=== PATIENT | female | born 2000 | race Caucasian/White ===

== ENCOUNTER 2018-04-03 17:19 | Outpatient (REF) | payer MEDICAID, SELFPAY ==
[2018-04-06 14:54] LABS: Chlamydia Result Negative; GC Result Negative; Specimen Description URINE
== END 2018-04-03 17:39 ==
LOC: LBN 17:19
PROVIDERS: PCP Pediatrics; Visit Provider Nurse Practitioner Family
DX: Z11.3 Encounter for screening for infections with a predominantly sexual mode of transmission (principal)
CPT/HCPCS: 87491; 87591

== ENCOUNTER 2018-11-26 07:03 | Emergency (ER) | payer MEDICAID, SELFPAY ==
[2018-11-26 07:14] VITALS: BP 129/74; PULSE 78; RESP 16; TEMP 36.7; O2SAT 97
--- NOTE | 2018-11-26 07:55 | W.ED.GENAD ---
Discharge Plan Disposition Patient Disposition: HOME Condition: Stable Discharge Details Chief Complaint: RashLesion Clinical Impression: Contact dermatitis Primary Care Provider: Inga Prince ED Provider: Richard Deras Home Meds and New Rx's Prescriptions: New prednisone 20 mg tablet 60 mg PO DAILY 5 Days Qty: 15 RF: 0 Continued levonorgestrel-ethinyl estrad [Jolessa] 0.15 mg-30 mcg tablets,dose pack,3 month 1 tab PO DAILY Qty: 91 RF: 6 Discharge Instructions Instructions: Dermatitis (ED) Additional Instructions: follow up with your primary care provider in 1-2 weeks and discuss if you should continue your control you can take benadryl as needed for itching, follow dosing instructions on packaging and be aware this could make you drowsy so do not drive or drink alcohol if you take this if you have severe abdominal pain, difficulty breathing or persistent vomit return to the emergency department Medical Decision Making 17 yo female comes in with rash that started 4 days ago. She states it started on innher thighs and is now in axilla and abdomen. Denies fevers, respiratory or gi symptoms or severe pain and has had itching. Denies vaginal or urinary symptoms, no new known detergents or soaps. She has multiple various areas of erythema of the inner thighs and abdomen of various sizes that alvaro, not warm to touch and not tender, no evidence of cellullitis or nec fasc, no mucous membrane involvement to suggest sjs/ten and no respiratory or gi symptoms so doubt anaphylaxis. I suspect contact dermatitis, advised to discuss if she should continue her new control with her pcp and return precautions given Differential Diagnosis contact dermatitis, urticaria HPI General Mode of arrival: ambulatory. Date/Time Provider Initiated Documentation: 11/26/18 07:50. Limitations to Documentation: no limitations. Information obtained by: patient. History of Present Illness 17 year old F presents to the emergency department with the chief complaint of rash, described as moderate, Quality is described as burning and other (itching), and is localized to the abdomen, upper extremity and lower extremity. Patient started experiencing this day(s) (4) and it has been constant. No relieving factors improve symptom(s), No exacerbating factors reported . Patient notes no other symptoms.. Patient did receive the following treatments prior to arrival, none Related Data Home Medications Medication Instructions Recorded Confirmed levonorgestrel 0.15 mg-ethinyl 1 tab PO DAILY #91 dose pk 04/03/18 11/26/18 estradiol 30 mcg tablets,3 mos pack(91) prednisone 60 mg PO DAILY 5 Days #15 tab 11/26/18 Previous Rx's Medication Instructions Recorded levonorgestrel 0.15 mg-ethinyl 1 tab PO DAILY #91 dose pk 04/03/18 estradiol 30 mcg tablets,3 mos pack(91) prednisone 60 mg PO DAILY 5 Days #15 tab 11/26/18 Allergies Allergy/AdvReac Type Severity Reaction Status Date / Time amoxicillin Allergy Intermediate skin rash Verified 11/26/18 07:21 Penicillins Allergy Intermediate Skin Rash Verified 11/26/18 07:21 General Stated Complaint: RashLesion SAI: 4 Review of Systems Review of Systems All systems reviewed & are unremarkable except as noted in HPI and below Constitutional Denies chills, Denies fever(s) and Denies weakness Cardiovascular Denies chest pain and Denies dyspnea Respiratory Denies cough and Denies dyspnea Gastrointestinal Denies abdominal pain, Denies nausea and Denies vomiting Genitourinary Denies dysuria Neurologic Denies weakness Psychiatric Denies depression PFSH Medical History ADHD (attention deficit hyperactivity disorder) (Inactive 04/20/12) Allergy to amoxicillin Attention deficit disorder of childhood with hyperactivity Insomnia Surgical History Tooth extraction Social History Smoking/Tobacco Use Status: Never Second Hand Exposure: Yes Alcohol Intake: never Drug use: Never Substance use type: does not use Caregiver/Support person: Yes Foster care: No Household members: other Details: Livs with Grandparents Housing: other Details: [place] with Grandparents 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 Pets and animals: Yes Pets and animals: cat(s) and dog(s) Sexually active: Yes Do you think of yourself as: straight/heterosexual Current gender identity: female What type of physical activity do you participate in: walking Seatbelt use: always Helmet use: Yes Drive intox or ride w/intox 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: No Firearms in home: Yes Firearms unloaded and locked: Yes Do you feel safe at home: Yes Do you feel safe in your relationship?: Yes Exam Const General: no acute distress Orientation: alert HENMT Head: normal to inspection Ears: external ears normal General nose exam: external nose normal Mouth: moist mucous membranes Eyes General: appearance normal, both eyes and all related structures Neck Neck: normal visual inspection Resp Effort & Inspection: normal respiratory effort and able to speak in complete sentences Cardio Rate: regular rate Skin General skin exam: elasticity normal Neuro General: alert and oriented x3 Extrem General: normal to inspection Psych Mental Status: mental status grossly normal Course Vital Signs Temperature 36.7 C 11/26/18 07:14 Pulse 78 11/26/18 07:14 Respiratory Rate 16 11/26/18 07:14 Blood Pressure 129/74 11/26/18 07:14 Pulse Oximetry 97 11/26/18 07:14 Temperature 36.7 C 11/26/18 07:14 Temperature Source Skin 11/26/18 07:14 Pulse 78 11/26/18 07:14 Respiratory Rate 16 11/26/18 07:14 Respiratory Effort Non-Labored 11/26/18 07:19 Blood Pressure 129/74 11/26/18 07:14 Blood Pressure Position Sitting 11/26/18 07:14 Pulse Oximetry 97 11/26/18 07:14 Oxygen Delivery Method Room Air 11/26/18 07:14 Oxygen Flow Rate 0 11/26/18 07:14 Pain Level 2 11/26/18 07:14
--- NOTE | 2018-11-26 08:00 | ED.GENADUL_ITS ---
Discharge Plan Disposition Patient Disposition: HOME Condition: Stable Discharge Details Chief Complaint: RashLesion Clinical Impression: Contact dermatitis Primary Care Provider: Inga Prince ED Provider: Richard Deras Home Meds and New Rx's Prescriptions: New prednisone 20 mg tablet 60 mg PO DAILY 5 Days Qty: 15 RF: 0 Continued levonorgestrel-ethinyl estrad [Jolessa] 0.15 mg-30 mcg tablets,dose pack,3 month 1 tab PO DAILY Qty: 91 RF: 6 Discharge Instructions Instructions: Dermatitis (ED) Additional Instructions: follow up with your primary care provider in 1-2 weeks and discuss if you should continue your control you can take benadryl as needed for itching, follow dosing instructions on packaging and be aware this could make you drowsy so do not drive or drink alcohol if you take this if you have severe abdominal pain, difficulty breathing or persistent vomit return to the emergency department Medical Decision Making 17 yo female comes in with rash that started 4 days ago. She states it started on innher thighs and is now in axilla and abdomen. Denies fevers, respiratory or gi symptoms or severe pain and has had itching. Denies vaginal or urinary symptoms, no new known detergents or soaps. She has multiple various areas of erythema of the inner thighs and abdomen of various sizes that alvaro, not warm to touch and not tender, no evidence of cellullitis or nec fasc, no mucous membrane involvement to suggest sjs/ten and no respiratory or gi symptoms so doubt anaphylaxis. I suspect contact dermatitis, advised to discuss if she should continue her new control with her pcp and return precautions given Differential Diagnosis contact dermatitis, urticaria HPI General Mode of arrival: ambulatory . Date/Time Provider Initiated Documentation: 11/26/18 07:50 . Limitations to Documentation: no limitations . Information obtained by: patient . History of Present Illness 17 year old F presents to the emergency department with the chief complaint of rash, described as moderate, Quality is described as burning and other (itching), and is localized to the abdomen, upper extremity and lower extremity. Patient started experiencing this day(s) (4) and it has been constant. No relieving factors improve symptom(s), No exacerbating factors reported . Patient notes no other symptoms.. Patient did receive the following treatments prior to arrival, none Related Data Home Medications Medication Instructions Recorded Confirmed levonorgestrel 0.15 mg-ethinyl 1 tab PO DAILY #91 dose pk 04/03/18 11/26/18 estradiol 30 mcg tablets,3 mos pack(91) prednisone 60 mg PO DAILY 5 Days #15 tab 11/26/18 Previous Rx's Medication Instructions Recorded levonorgestrel 0.15 mg-ethinyl 1 tab PO DAILY #91 dose pk 04/03/18 estradiol 30 mcg tablets,3 mos pack(91) prednisone 60 mg PO DAILY 5 Days #15 tab 11/26/18 Allergies Allergy/AdvReac Type Severity Reaction Status Date / Time amoxicillin Allergy Intermediate skin rash Verified 11/26/18 07:21 Penicillins Allergy Intermediate Skin Rash Verified 11/26/18 07:21 General Stated Complaint: RashLesion SAI: 4 Review of Systems Review of Systems All systems reviewed & are unremarkable except as noted in HPI and below Constitutional Denies chills, Denies fever(s) and Denies weakness Cardiovascular Denies chest pain and Denies dyspnea Respiratory Denies cough and Denies dyspnea Gastrointestinal Denies abdominal pain, Denies nausea and Denies vomiting Genitourinary Denies dysuria Neurologic Denies weakness Psychiatric Denies depression PFSH Medical History ADHD (attention deficit hyperactivity disorder) (Inactive 04/20/12) Allergy to amoxicillin Attention deficit disorder of childhood with hyperactivity Insomnia Surgical History Tooth extraction Social History Smoking/Tobacco Use Status: Never Second Hand Exposure: Yes Alcohol Intake: never Drug use: Never Substance use type: does not use Caregiver/Support person: Yes Foster care: No Household members: other Details: Livs with Grandparents Housing: other Details: [employer] with Grandparents 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 Pets and animals: Yes Pets and animals: cat(s) and dog(s) Sexually active: Yes Do you think of yourself as: straight/heterosexual Current gender identity: female What type of physical activity do you participate in: walking Seatbelt use: always Helmet use: Yes Drive intox or ride w/intox delivery route 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: No Firearms in home: Yes Firearms unloaded and locked: Yes Do you feel safe at home: Yes Do you feel safe in your relationship?: Yes Exam Const General: no acute distress Orientation: alert HENMT Head: normal to inspection Ears: external ears normal General nose exam: external nose normal Mouth: moist mucous membranes Eyes General: appearance normal, both eyes and all related structures Neck Neck: normal visual inspection Resp Effort & Inspection: normal respiratory effort and able to speak in complete sentences Cardio Rate: regular rate Skin General skin exam: elasticity normal Neuro General: alert and oriented x3 Extrem General: normal to inspection Psych Mental Status: mental status grossly normal Course Vital Signs Temperature 36.7 C 11/26/18 07:14 Pulse 78 11/26/18 07:14 Respiratory Rate 16 11/26/18 07:14 Blood Pressure 129/74 11/26/18 07:14 Pulse Oximetry 97 11/26/18 07:14 Temperature 36.7 C 11/26/18 07:14 Temperature Source Skin 11/26/18 07:14 Pulse 78 11/26/18 07:14 Respiratory Rate 16 11/26/18 07:14 Respiratory Effort Non-Labored 11/26/18 07:19 Blood Pressure 129/74 11/26/18 07:14 Blood Pressure Position Sitting 11/26/18 07:14 Pulse Oximetry 97 11/26/18 07:14 Oxygen Delivery Method Room Air 11/26/18 07:14 Oxygen Flow Rate 0 11/26/18 07:14 Pain Level 2 11/26/18 07:14
[2018-11-26 08:10] VITALS: BP 129/74; PULSE 78; RESP 16; TEMP 36.7; O2SAT 97
== END 2018-11-26 08:10 | disposition home or self-care (01) ==
PROVIDERS: Emergency Provider Emergency Medicine; PCP Nurse Practitioner Family
DX: L25.9 Unspecified contact dermatitis, unspecified cause (principal)
CPT/HCPCS: 99283

== ENCOUNTER 2019-01-28 02:04 | Outpatient (CLI) | payer MEDICAID, SELFPAY ==
[2019-01-28 13:02] LABS: Anion Gap 11.1 mmol/L (3-11); BUN 10 mg/dL (7-18); CO2 25.9 mmol/L (21.0-32.0); CREATININE 0.79 mg/dL (0.55-1.02); Calculated LDL 108 mg/dL; Chloride 105 mmol/L (98-107); Cholesterol 182 mg/dL (50-200); Glucose 89 mg/dL (70-100); HDL Cholesterol 42 mg/dL (40-60); Potassium 4.7 mmol/L (3.5-5.1); Sodium 142 mmol/L (136-145); TSH 8.17 uIU/mL (0.36-3.74); Triglyceride 160 mg/dL (30-150)
[2019-01-28 13:22] LABS: FREE T4 0.83 ng/dL (0.76-1.46)
== END 2019-01-28 02:24 ==
PROVIDERS: PCP Nurse Practitioner Family; Visit Provider Nurse Practitioner Family
DX: E66.9 Obesity, unspecified (principal)
CPT/HCPCS: 36415; 80048; 80061; 83721; 84439; 84443

== ENCOUNTER 2020-01-28 17:12 | Outpatient (REF) | payer MEDICAID, SELFPAY ==
--- NOTE | 2020-01-28 16:20 | PAPFT_PTH ---
PATIENT: Lacey Peña LOC: [facility] U#:[id number] AGE/SX: 19/F ROOM: RE01/28/[address]: POLY Vila : 2000 BED: DIS: 01/28/2020 SPEC #: [id number] RECD: 01/31/20 18:14 STATUS: PETER RESujit #: [id number] RJ: 01/28/20 16:[address]: Inga Prince DEPT: [facility] Cytology RECD BY: Cortney Mcdaniel Tissues: 1 - CX/ENDOCX FOR PAP SMEARS Procedures: PAP THIN PREP/UVM Screening Comments: [id number] (CHLAMYDIA/GC)
[2020-02-03 15:30] LABS: Chlamydia Result Negative (Negative); GC Result Negative (Negative)
== END 2020-01-28 17:32 ==
LOC: LBN 17:12
PROVIDERS: PCP Nurse Practitioner Family; Visit Provider Nurse Practitioner Family
DX: Z12.4 Encounter for screening for malignant neoplasm of cervix (principal)
CPT/HCPCS: 87491; 87591; 88142

== ENCOUNTER 2020-05-31 02:28 | Outpatient (CLI) | payer MEDICAID, SELFPAY ==
[2020-05-31 13:15] LABS: Hemoglobin A1C 5.5 % (<5.7)
[2020-05-31 14:18] LABS: HCG Quant, Pregnancy < 1 mIU/mL (1-3)
[2020-05-31 14:21] LABS: FREE T4 1.08 ng/dL (0.76-1.46)
[2020-05-31 22:06] LABS: Thyroglobulin Antibody 25 U/mL (<=60); Thyroperoxidase Antibody 52 U/mL (<=60)
== END 2020-05-31 02:48 ==
PROVIDERS: PCP Nurse Practitioner Family; Visit Provider Nurse Practitioner Family
DX: N92.6 Irregular menstruation, unspecified (principal); R79.89 Other specified abnormal findings of blood chemistry; E66.9 Obesity, unspecified
CPT/HCPCS: 36415; 86376; 83036; 84439; 84443; 84702

== ENCOUNTER 2021-04-13 01:48 | Outpatient (CLI) | payer MEDICAID, SELFPAY ==
[2021-04-13 15:08] LABS: Abs Immature Grans 0.03 10^3/uL (0.0-0.06); Absolute Basophil Count 0.03 10^3/uL (0.0-0.2); Absolute Lymphocyte Count 1.96 10^3/uL (1.2-3.4); Absolute Monocyte Count 0.46 10^3/uL (0.1-0.8); Absolute Neutrophil Count 7.06 10^3/uL (1.2-6.7); Basophils % 0.3; HCT 41.5 % (36.0-46.0); HGB 13.1 g/dL (11.2-15.7); Immature Grans % 0.3; Lymphocytes % 20.3; MCH 27.6 pg (27.0-33.0); MCHC 31.6 % (32.0-36.0); MCV 87.6 fL (80-95); Monocytes % 4.8; Neutrophils % 73.3; Nucleated RBC 0 %; Platelet Count 333 10^3/uL (130-400); RBC 4.74 10^6/uL (3.93-5.22); RDW 13.5 % (11.7-14.6); RDW-SD 43.8 fL; WBC 9.64 10^3/uL (4.4-10.8)
== END 2021-04-13 01:49 | disposition home or self-care (01) ==
LOC: LBO 01:48
PROVIDERS: Advanced Practice Midwife; PCP Nurse Practitioner Family; Visit Provider Advanced Practice Midwife
DX: Z34.91 Encounter for supervision of normal pregnancy, unspecified, first trimester (principal)
CPT/HCPCS: 36415; 86850; 86900; 86901; 85025

== ENCOUNTER 2021-04-13 18:47 | Outpatient (REF) | payer MEDICAID, SELFPAY ==
[2021-04-16 16:10] LABS: GC Result Negative (Negative)
[2021-04-16 16:58] LABS: Chlamydia Result Positive (Negative)
== END 2021-04-13 18:48 | disposition home or self-care (01) ==
LOC: LBN 18:47
PROVIDERS: PCP Nurse Practitioner Family; Visit Provider Advanced Practice Midwife
DX: Z34.91 Encounter for supervision of normal pregnancy, unspecified, first trimester; N89.8 Other specified noninflammatory disorders of vagina
CPT/HCPCS: 87491; 87591; 87480; 87510; 87660

== ENCOUNTER 2021-04-19 11:28 | Outpatient (CLI) | payer MEDICAID, SELFPAY ==
[2021-04-19 14:59] LABS: HCG Quant, Pregnancy 566 mIU/mL (1-3)
== END 2021-04-19 11:29 | disposition home or self-care (01) ==
LOC: LBO 04-20 11:30
PROVIDERS: PCP Nurse Practitioner Family; Visit Provider Obstetrics & Gynecology
DX: O03.9 Complete or unspecified spontaneous abortion without complication; A74.9 Chlamydial infection, unspecified
CPT/HCPCS: 36415; 84702

== ENCOUNTER 2021-08-15 15:34 | Outpatient (REF) | payer MEDICAID, SELFPAY ==
[2021-08-15 18:58] LABS: Bilirubin Negative (Negative); Blood Negative (Negative); Clarity Cloudy (Clear); Glucose Negative (Negative); Ketones Negative (Negative); Leukocyte Esterase Negative (Negative); Nitrite Negative (Negative); Specific Gravity >= 1.030 (1.005-1.025); Urobilinogen 0.2 EU/dL (Up TO 0.2)
[2021-08-15 19:08] LABS: Epithelial Cells Moderate HPF (Negative); RBC Negative HPF (0-2); WBC Negative HPF (0-5)
[2021-08-15 19:09] LABS: C & S Indicated? No; Crystals Many Amorphous HPF (Negative); Mucus Negative (Negative)
== END 2021-08-15 15:35 | disposition home or self-care (01) ==
LOC: LBN 15:34
PROVIDERS: PCP Nurse Practitioner Family; Visit Provider Family Medicine
DX: N39.0 Urinary tract infection, site not specified (principal)
CPT/HCPCS: 81003; 81015

== ENCOUNTER 2021-08-30 15:10 | Outpatient (CLI) | payer OTHER, SELFPAY ==
--- NOTE | 2021-08-30 14:45 | DI.RAD_ITS ---
Exam(s) XR SHOULDER LT COMPLETE 2+V EXAM: XR SHOULDER LT COMPLETE 2+V CLINICAL HISTORY: Acute lt shoulder pain, M25.512, S/P fall. Struck shoulder 08/10/21.. TECHNIQUE: 2D digital imaging was performed. COMPARISON: No exams were available for comparison FINDINGS: No evidence fracture or dislocation of the glenohumeral joint. No abnormal soft tissue calcification s. No degenerative changes and AC joints. Ipsilateral clavicle unremarkable. IMPRESSION: No significant findings DATA REPOSITORY: RADIATION DOSE DELIVERED:
== END 2021-08-30 15:30 ==
PROVIDERS: PCP Nurse Practitioner Family; Visit Provider Nurse Practitioner Family
DX: M25.512 Pain in left shoulder (principal)
CPT/HCPCS: 73030

== ENCOUNTER 2021-10-23 17:05 | Outpatient (REF) | payer MEDICAID, SELFPAY | END 2021-10-23 17:06 | disposition home or self-care (01) | LOC: LBN 17:05 | PROVIDERS: PCP Nurse Practitioner Family; Visit Provider Family Medicine | DX: R30.0 Dysuria (principal) | CPT/HCPCS: 87086 ==

== ENCOUNTER 2021-10-26 18:05 | Outpatient (REF) | payer MEDICAID, SELFPAY ==
[2021-10-29 14:45] LABS: Chlamydia Result Negative (Negative); GC Result Negative (Negative)
== END 2021-10-26 18:06 | disposition home or self-care (01) ==
LOC: LBN 18:05
PROVIDERS: PCP Nurse Practitioner Family; Visit Provider Obstetrics & Gynecology
DX: Z11.3 Encounter for screening for infections with a predominantly sexual mode of transmission (principal)
CPT/HCPCS: 87491; 87591

== ENCOUNTER 2022-02-06 12:50 | Outpatient (REF) | payer MEDICAID, SELFPAY | END 2022-02-06 12:51 | disposition home or self-care (01) | LOC: LBN 12:50 | PROVIDERS: PCP Nurse Practitioner Family; Visit Provider Nurse Practitioner Family | DX: J02.9 Acute pharyngitis, unspecified (principal) | CPT/HCPCS: 87070 ==

== ENCOUNTER 2022-03-04 17:24 | Outpatient (REF) | payer MEDICAID, SELFPAY ==
[2022-03-06 15:11] LABS: Chlamydia Result Negative (Negative); GC Result Negative (Negative)
== END 2022-03-04 17:25 | disposition home or self-care (01) ==
LOC: LBN 17:24
PROVIDERS: PCP Nurse Practitioner Family; Visit Provider Obstetrics & Gynecology
DX: Z11.3 Encounter for screening for infections with a predominantly sexual mode of transmission (principal)
CPT/HCPCS: 87491; 87591

== ENCOUNTER 2022-03-25 03:20 | Outpatient (CLI) | payer MEDICAID, SELFPAY ==
[2022-03-25 12:20] LABS: Kit/Specimen SENT
[2022-03-25 12:25] LABS: Abs Immature Grans 0.03 10^3/uL (0.0-0.06); Absolute Basophil Count 0.02 10^3/uL (0.0-0.2); Absolute Eosinophil Count 0.05 10^3/uL (0.0-0.7); Absolute Lymphocyte Count 1.88 10^3/uL (1.2-3.4); Absolute Monocyte Count 0.29 10^3/uL (0.1-0.8); Absolute Neutrophil Count 8.52 10^3/uL (1.2-6.7); Basophils % 0.2; Eosinophils % 0.5; HCT 37.4 % (36.0-46.0); HGB 11.9 g/dL (11.2-15.7); Immature Grans % 0.3; Lymphocytes % 17.4; MCH 26.7 pg (27.0-33.0); MCHC 31.8 % (32.0-36.0); MCV 84 fL (80-95); MPV 8.7 fL (8.0-11.0); Monocytes % 2.7; Neutrophils % 78.9; Platelet Count 331 10^3/uL (130-400); RBC 4.45 10^6/uL (3.93-5.22); RDW 14.1 % (11.7-14.6); RDW-SD 43.1 fL; WBC 10.79 10^3/uL (4.4-10.8)
[2022-03-25 13:16] LABS: TSH (W/Ref FT4) 2.87 uIU/mL (0.36-3.74)
[2022-03-25 18:50] LABS: Glucose,1 Hr (Glucola) 99 mg/dL (80-140)
[2022-03-26 08:58] LABS: Hepatitis C Ab w Rflx HCV PCR Negative (Negative)
[2022-03-26 09:18] LABS: Hepatitis B Surface Ag Negative (Negative)
[2022-03-26 09:24] LABS: HIV-1/2 Ag & Ab Screen Negative (Negative)
[2022-03-26 13:49] LABS: Varicella IgG Antibody Negative (See Note)
[2022-03-26 13:53] LABS: Rubella IgG Ab (UVM) Positive (See Note)
[2022-03-27 00:22] LABS: Syphilis IgG w/Reflex Nonreactive (Nonreactive)
[2022-04-15 12:17] LABS: Result Summary NEGATIVE; Specimen WB Whole Blood
== END 2022-03-25 03:21 | disposition home or self-care (01) ==
LOC: LBO 03:20
PROVIDERS: PCP Nurse Practitioner Family; Visit Provider Advanced Practice Midwife
DX: Z34.91 Encounter for supervision of normal pregnancy, unspecified, first trimester
CPT/HCPCS: 36415; 81220; 81222; 82950; 86787; 86803; 86850; 86900; 86901; 87340; 87389; 84443; 85025; 86762; 86780

== ENCOUNTER 2022-03-25 14:23 | Outpatient (REF) | payer MEDICAID, SELFPAY ==
[2022-03-25 18:10] LABS: *AMPHETAMINES SCREEN URINE Negative (Negative); *BARBITURATES SCREEN URINE Negative (Negative); *BENZODIAZEPINES SCREEN URINE Negative (Negative); Cannabinoids THC Negative (Negative); Cocaine Screen,Urine Negative (Negative); METHADONE URINE SCREEN Negative (Negative); OPIATES URINE SCREEN Negative (Negative)
[2022-03-25 18:12] LABS: Tricyclic Antidepressants Negative (Negative)
[2022-04-04 06:26] LABS: Buprenorphine Negative ng/mL (Cutoff: 5.0); Norbuprenorphine Negative ng/mL (Cutoff: 2.5)
== END 2022-03-25 14:24 | disposition home or self-care (01) ==
LOC: LBN 14:23
PROVIDERS: PCP Nurse Practitioner Family; Visit Provider Advanced Practice Midwife
DX: Z34.91 Encounter for supervision of normal pregnancy, unspecified, first trimester (principal); N89.8 Other specified noninflammatory disorders of vagina; Z3A.12 12 weeks gestation of pregnancy
CPT/HCPCS: 80307; 87086; 87480; 87510; 87660

== ENCOUNTER 2022-04-22 03:33 | Outpatient (CLI) | payer MEDICAID, SELFPAY ==
[2022-04-22 11:43] LABS: TSH (W/Ref FT4) 5.71 uIU/mL (0.36-3.74)
[2022-04-22 11:59] LABS: FREE T4 1.02 ng/dL (0.76-1.46)
[2022-04-23 14:18] LABS: AFP 27.7 ng/mL; Cigarette smoking status non-Smoker; GA used in risk estimate Scan estimate; IVF Pregnancy No; Initial or repeat testing Initial testing; Insulin dependent diabetes No; Maternal Weight 213 lbs; Number of Fetuses 1; Prev Pregnancy w/NTD No; RECOMMENDED FOLLOW UP None.; Results Summary Normal risk
== END 2022-04-22 03:34 | disposition home or self-care (01) ==
LOC: LBO 03:33
PROVIDERS: Advanced Practice Midwife; PCP Nurse Practitioner Family; Visit Provider Advanced Practice Midwife
DX: O26.892 Other specified pregnancy related conditions, second trimester (principal); R94.6 Abnormal results of thyroid function studies; Z3A.16 16 weeks gestation of pregnancy
CPT/HCPCS: 36415; 82105; 84439; 84443

== ENCOUNTER → 2022-05-13 01:40 | Outpatient (CLI) | payer MEDICAID, SELFPAY ==
--- NOTE | 2022-05-13 08:45 | DI.US_ITS ---
Exam(s) US OB 2-3 TRIMESTER EXAM: US OB 2-3 TRIMESTER CLINICAL HISTORY: , Z34.90. TECHNIQUE: Transabdominal obstetrical ultrasound was performed. COMPARISON: No exams were available for comparison FINDINGS: There is a single viable intrauterine gestation with cardiac activity identified-167 bpm. Amniotic fluid: There is a normal amount of amniotic fluid. Placental location: The placenta is posterior grade 1,with no evidence of placenta previa.Distance fr om the tip of placenta to the internal cervical os is 4 cm. ANATOMY: A 3 vessel umbilical cord is seen. A four-chamber cardiac view was obtained. Right and left ventricular outflow tracts were imaged. There are no obvious abnormalities of the spinal column evident. There is no obvious abnormal ity of the anterior abdominal wall. stomach and urinary bladder are identified and there is no evidence of hydronephrosis. No abnormalities of the upper lip region are identified. No evidence of choroid plexus cysts i n the brain. Dating parameters place this at approximately 19 weeks and 5 days gestational age. BPD measures 19 weeks and 4 days HC measures 19 weeks and 3 days AC measures 19 weeks and 1 day FL measures 20 weeks and 3 days Estimated weight is 308 gm-0 pounds, 11 ounces Fetus is at the 85th percentile on the Hadlock scale. IMPRESSION:: Single viable intrauterine gestation which is approximately 19 weeks and 5 days gestati onal age, implying an SEAN of October 02, 2022. There are no obvious anomalies evident on today's study. The placenta is posterior grade 1 with no evidence of placenta previa. There is a normal amount of amniotic fluid. DATA REPOSITORY:
== END ==
PROVIDERS: PCP Nurse Practitioner Family; Visit Provider Advanced Practice Midwife
DX: Z34.92 Encounter for supervision of normal pregnancy, unspecified, second trimester (principal)
CPT/HCPCS: 76805

== ENCOUNTER 2022-07-15 03:08 | Outpatient (CLI) | payer MEDICAID, SELFPAY ==
[2022-07-15 15:39] LABS: HCT 35.7 % (36.0-46.0); HGB 11.2 g/dL (11.2-15.7); MCH 26.6 pg (27.0-33.0); MCHC 31.4 % (32.0-36.0); MCV 85 fL (80-95); MPV 8.6 fL (8.0-11.0); Platelet Count 337 10^3/uL (130-400); RBC 4.21 10^6/uL (3.93-5.22); RDW 15.6 % (11.7-14.6); RDW-SD 48.4 fL
[2022-07-15 15:48] LABS: Glucose,1 Hr (Glucola) 85 mg/dL (80-140)
== END 2022-07-15 03:09 | disposition home or self-care (01) ==
LOC: LBO 03:08
PROVIDERS: PCP Nurse Practitioner Family; Visit Provider Advanced Practice Midwife
DX: Z34.93 Encounter for supervision of normal pregnancy, unspecified, third trimester (principal)
CPT/HCPCS: 36415; 82950; 85027

== ENCOUNTER 2022-08-26 02:50 | Outpatient (CLI) | payer MEDICAID, SELFPAY ==
[2022-08-26 17:20] LABS: TSH (W/Ref FT4) 1.61 uIU/mL (0.36-3.74)
[2022-08-26 17:22] LABS: HCG Quant, Pregnancy 3099 mIU/mL (1-3)
[2022-08-27 19:15] LABS: Thyroglobulin Antibody <15 U/mL (<=60); Thyroperoxidase Antibody <28 U/mL (<=60)
== END 2022-08-26 02:51 | disposition home or self-care (01) ==
LOC: LBO 02:50
PROVIDERS: PCP Nurse Practitioner Family; Visit Provider Advanced Practice Midwife
DX: E03.9 Hypothyroidism, unspecified (principal); O99.283 Endocrine, nutritional and metabolic diseases complicating pregnancy, third trimester
CPT/HCPCS: 36415; 86376; 84443; 84702

== ENCOUNTER 2022-09-16 16:07 | Outpatient (REF) | payer MEDICAID, SELFPAY ==
[2022-09-16 18:39] LABS: *AMPHETAMINES SCREEN URINE Negative (Negative); *BARBITURATES SCREEN URINE Negative (Negative); *BENZODIAZEPINES SCREEN URINE Negative (Negative); Cannabinoids THC Negative (Negative); Cocaine Screen,Urine Negative (Negative); METHADONE URINE SCREEN Negative (Negative); OPIATES URINE SCREEN Negative (Negative)
[2022-09-16 18:42] LABS: Tricyclic Antidepressants Negative (Negative)
[2022-09-20 17:17] LABS: Buprenorphine Negative ng/mL (Cutoff: 5.0); Norbuprenorphine Negative ng/mL (Cutoff: 2.5)
== END 2022-09-16 16:08 | disposition home or self-care (01) ==
LOC: LBN 16:07
PROVIDERS: PCP Nurse Practitioner Family; Visit Provider Advanced Practice Midwife
DX: Z34.93 Encounter for supervision of normal pregnancy, unspecified, third trimester (principal); Z36.85 Encounter for antenatal screening for Streptococcus B; Z3A.37 37 weeks gestation of pregnancy
CPT/HCPCS: 80307; 80348; 87081

== ENCOUNTER 2022-09-24 22:27 | Emergency (ER) | payer MEDICAID, SELFPAY ==
[2022-09-24 22:30] VITALS: BP 138/79; PULSE 86; RESP 18; TEMP 36.7; O2SAT 97
[2022-09-24] MEDS: Clindamycin 150 MG CAP, 12 CAPS/BTL 450 MG PO (22:56)
--- NOTE | 2022-09-24 22:58 | W.ED.GENAD ---
Discharge Plan Disposition Patient Disposition: Home Discharge Details Clinical Impression: Pain, dental, Primary Care Provider: Inga Prince ED Provider: Cortney Torres Home Meds and New Rx's Prescriptions: New clindamycin HCl 150 mg capsule 450 mg PO TID Qty: 78 0RF Continued fluticasone propionate 50 mcg/actuation spray,suspension 1 spray intranasal BID Qty: 16 1RF Rx Instructions: administer into each nostril prenat.vits,omero,[id number] Tablet 1 tab PO DAILY famotidine [Pepcid] 20 mg tablet 20 mg PO DAILY Qty: 30 4RF levothyroxine 50 mcg tablet See Rx Instructions .ROUTE .COMPLEX Qty: 90 0RF Dose Instruction: TAKE ONE TABLET BY MOUTH ONCE DAILY Rx Instructions: TAKE ONE TABLET BY MOUTH ONCE DAILY Discharge Instructions Instructions: (ED), Toothache (ED) Additional Instructions: Take antibiotic as prescribed Yogurt daily while on antibiotic Tylenol as needed for pain Return earlier with new or worsening complaints including difficulty swallowing, fever, chills, facial swelling Referrals: Inga Prince, [employer] [Primary Care Provider] - Medical Decision Making Patient presents with right lower dental pain. Of note she is 9 months , heart rate was between 137 and 140, no abdominal tenderness or vaginal bleeding reported She is allergic to penicillin so we will place patient on clindamycin for suspected dental infection Yogurt encouraged Tylenol as needed for pain Declined dental block Return precautions reviewed and patient expressed understanding Discharged home in stable condition without clinical evidence of Cory's angina Medical Records Medical records reviewed: Yes I reviewed the patient's medical records. Lab Data Lab results reviewed: Yes I reviewed the patient's lab results. HPI General Date/Time Provider Initiated Documentation: 09/24/22 22:31. HPI Narrative: This 21-year-old female presents 9 months with right lower dental pain. States that she has had pain for the past few weeks and worsening the past few days. She called a local dentist in [place] who recommended she be reassessed. She denies any abdominal pain or vaginal bleeding. She denies any difficulty swallowing, chest pain, or shortness of breath. Related Data Home Medications Medication Instructions Recorded Confirmed fluticasone propionate 50 1 spray intranasal BID #16 grams 09/28/21 09/24/22 mcg/actuation nasal spray,suspension prenat.vits,omero,[id number]-[id number]-[id number] 1 tab PO DAILY 03/04/22 09/24/22 famotidine 20 mg tablet (Pepcid) 20 mg PO DAILY #30 tabs 07/15/22 09/24/22 clindamycin HCl 150 mg capsule 450 mg PO TID #78 caps 09/24/22 levothyroxine 50 mcg tablet See Rx Instructions .Route 09/24/22 09/24/22 .COMPLEX #90 tabs Previous Rx's Medication Instructions Recorded fluticasone propionate 50 1 spray intranasal BID #16 grams 09/28/21 mcg/actuation nasal spray,suspension famotidine 20 mg tablet (Pepcid) 20 mg PO DAILY #30 tabs 07/15/22 clindamycin HCl 150 mg capsule 450 mg PO TID #78 caps 09/24/22 levothyroxine 50 mcg tablet See Rx Instructions .Route 09/24/22 .COMPLEX #90 tabs Allergies Allergy/AdvReac Type Severity Reaction Status Date / Time amoxicillin Allergy Intermediate skin rash Verified 09/23/22 11:31 Penicillins Allergy Intermediate Skin Rash Verified 09/23/22 11:31 General Stated Complaint: DentalOral SAI: 4 PFSH All Active Problems (Updated 09/24/22 @ 22:54 by CADEN Taveras) Pain, dental (Acute) Hypothyroid in , antepartum (Acute) First trimester bleeding (Acute) COVID-19 (Acute ~04/29/22) Elevated TSH (Acute) Maternal varicella, non-immune (Acute) Vaginal discharge (Acute) BMI 37.0-37.9, adult (Acute) (Acute) Pelvic pain (Acute) Acute left ankle pain (Acute) Acute pain of left shoulder (Acute) Irregular periods/menstrual cycles (Acute) Obesity (Chronic) Medical History ADHD (attention deficit hyperactivity disorder) no medications after age 15 Chlamydia infection Rx sent to [facility] 04/16/21 Concussion Mild - one day of headache and being tired High BMI BMI 43 Migraine headache without aura resolved 2018 Muscle spasm SAB (spontaneous ) 2018 and 2020 Surgical History H/O wisdom tooth extraction Family History Mother Bipolar 1 disorder, depressed Father , 45 Anxiety Depression Heart disease Myocardial infarction at age 45 Maternal Grandfather , in his late 70s Alzheimer's dementia Maternal Grandmother , at 69 of lung cancer Lung cancer Paternal Grandfather Type 2 diabetes mellitus Asthma Heart disease Cancer Paternal Grandmother Hyperlipidemia Hypertension Thyroid disease Social History Smoking/Tobacco Use Status: Never Second Hand Exposure: Yes Smoking risk assessment performed?: Yes Alcohol Intake: never Drug use: Never Substance use type: does not use Caregiver/Support person: Yes Foster care: No Household members: other Details: Livs with Grandparents Housing: other Details: [employer] with Grandparents 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 Pets and animals: Yes Pets and animals: cat(s) and dog(s) Sexually active: Yes Do you think of yourself as: straight/heterosexual Current gender identity: female What type of physical activity do you participate in: walking Seatbelt use: always Helmet use: Yes Drive intox or ride w/intox special needs bus driver: No Firearms in home: Yes Firearms unloaded and locked: Yes Do you feel safe at home: Yes Do you feel safe in your relationship?: Yes Female Reproductive History Menstrual control method: pills History History 2 Para 0 Hx # Term Pregnancies 0 Multiple births 0 Hx # Pregnancies 0 Ectopic pregnancies 0 AB induced 0 Hx Number of Living Children 0 AB spontaneous 1 Past Pregnancies Del. Date GA/Weeks # Preg Succ Route Wgt Sex Labor Lgth Anesthesia Location [facility] 05/12/19 Delivery Date: 05/12/19 Last Updated by: Saira Alberto CNM pos. PT and bleeding soon after Exam Const Orientation: alert and oriented x3 [facility] Teeth image: 1. Fractured teeth noted, no evidence of deep space infection, uvula midline Eyes Pupils: PERRL Resp Effort & Inspection: normal respiratory effort Auscultation: clear to auscultation bilaterally Cardio Rate: regular rate GI Other: No tenderness to abdomen Gravid uterus Skin General skin exam: no rashes or lesions noted Neuro General: patient alert and patient oriented x3 Course Vital Signs Vital signs: Vital Signs Temperature 36.7 C 09/24/22 22:30 Pulse 86 09/24/22 22:30 Respiratory Rate 18 03/21/23 22:30 Blood Pressure 138/79 09/24/22 22:30 Pulse Oximetry 97 09/24/22 22:30 Temperature 36.7 C 09/24/22 22:30 Temperature Source Oral 09/24/22 22:30 Pulse 86 09/24/22 22:30 Respiratory Rate 18 09/24/22 22:30 Respiratory Effort Normal 09/24/22 22:36 Blood Pressure 138/79 09/24/22 22:30 Blood Pressure Position Sitting 09/24/22 22:30 Pulse Oximetry 97 09/24/22 22:30 Oxygen Delivery Method Room Air 09/24/22 22:30 Oxygen Flow Rate 0 09/24/22 22:30 Pain Level 8 09/24/22 22:30
== END 2022-09-24 23:02 | disposition home or self-care (01) ==
PROVIDERS: Emergency Provider Physician Assistant; PCP Nurse Practitioner Family
DX: O99.613 Diseases of the digestive system complicating pregnancy, third trimester (principal); K08.89 Other specified disorders of teeth and supporting structures
CPT/HCPCS: 99283; 99284

== ENCOUNTER 2022-09-25 04:00 | Inpatient (IN) | payer MEDICAID, SELFPAY ==
[2022-09-25] VITALS (38 sets, daily range): BP systolic 110–151; BP diastolic 53–94; PULSE 79–142; RESP 18; TEMP 36.5–36.9; O2SAT 97–100; BMI 40.6
--- NOTE | 2022-09-25 04:02 | HPE_ITS ---
Date of service: 09/25/22 Time of Service: 04:03 Assessment and Plan Assessment and plan (1) Uterine contractions: Status: Acute Assessment and plan: A: 21 yo @ 38 wks, GBS negative Spontaneous onset of labor, early phase Low risk for PPH, increased risk for SD d/t obesity & parity Question category 2 tracing on admission d/t variable decels FOB providing effective support, pt coping well w/contrx P: Admit to BC, CBC, T&S, COVID swab Continuous EFM to further evaluate status Clear liquid diet order until status determined Comfort measures as requested by pt Dr. Sotelo aware of admission and cat 2 tracing status (2) Hypothyroid in , antepartum: Status: Acute Assessment and plan: Pt taking levothyroxine, and TSH levels monitored throughout (3) Pain, dental: Status: Acute Assessment and plan: Pt currently taking antibiotics (clindamycin) orally for dental infection, will continue during inpt hospital stay OB-HPI Labor/Delivery History of Present Illness Reason for Visit: term labor Chief Complaint: Uterine Contractions (contractions that are painful since 0100, getting stronger and more frequent, no ROM, no bleeding). SEAN Calculator Estimated Delivery Date Method Current WG Current Estimate 10/07/22 Ultrasound #1 38w 2d Other Estimates 09/12/22 LMP (Uncertain) 41w 6d History of Present Expected Delivery Route/Plan - CNM FOB/ - Micheal Wan (first child) BB yes to circ Derek Varicella non immune, offer PP vaccination Immediate Depo injection Would prefer no epidural and hopes to use nitrous GBS negative Specific Issues/Plan 1. BMI 37 - early GTT=99, low dose ASA recommended. GTT 85 at 28 weeks. 2. Covid vaccinated, no boosters, Micheal is not vaccinated 3. 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 4. ADHD- no meds currently 5. Migraine hx; increased frequency @ 16 wks, neuro consult ordered- magnesium 400-500mg daily, B2 400 mg daily, tylenol & caffeine PRN 5a. Headaches were triggered by drinking gatorade so she has stopped that. 6. Genetic testing: cfDNA low prob x5 male fetus, CF neg, AFP-WNL 7. Initial TSH 2.87; repeat @ 16 wks, is 5.71, thyroid Ab panel ordered- WNL 7a. Repeat TSH 5.71- MD consult 04/23 - levothyroxine 50 mcg escribed. 7b. Repeat Thyroid Ab panel at 34 wks- TSH 1.61, thyroperoxidase WNL 8. Varicella non-immune, counseled and accepts vaccine Assessment: History Reviewed & Current Review of Systems Narrative: ROS completed and found to be noncontributory other then HPI PFSH All Active Problems (Updated 09/25/22 @ 04:12 by Jacey Valdez) Uterine contractions (Acute) Pain, dental (Acute) Hypothyroid in , antepartum (Acute) COVID-19 (Acute ~04/29/22) Maternal varicella, non-immune (Acute) BMI 37.0-37.9, adult (Acute) (Acute) Obesity (Chronic) Medical History (Updated 09/25/22 @ 04:12 by Jacey Valdez) Acute left ankle pain Acute pain of left shoulder ADHD (attention deficit hyperactivity disorder) no medications after age 15 Chlamydia infection Rx sent to [facility] 04/16/21 Concussion Mild - one day of headache and being tired Elevated TSH First trimester bleeding High BMI BMI 43 Irregular periods/menstrual cycles Migraine headache without aura resolved 2017 Muscle spasm Pelvic pain SAB (spontaneous ) 2018 and 2020 Vaginal discharge Surgical History H/O wisdom tooth extraction Family History Mother Bipolar 1 disorder, depressed Father , 45 Anxiety Depression Heart disease Myocardial infarction at age 45 Maternal Grandfather , in his late 70s Alzheimer's dementia Maternal Grandmother , at 69 of lung cancer Lung cancer Paternal Grandfather Type 2 diabetes mellitus Asthma Heart disease Cancer Paternal Grandmother Hyperlipidemia Hypertension Thyroid disease Social History Smoking/Tobacco Use Status: Never Second Hand Exposure: Yes Smoking risk assessment performed?: Yes Alcohol Intake: never Drug use: Never Substance use type: does not use Caregiver/Support person: Yes Foster care: No Household members: other Details: Livs with Grandparents Housing: other Details: [place] with Grandparents 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 Pets and animals: Yes Pets and animals: cat(s) and dog(s) Sexually active: Yes Do you think of yourself as: straight/heterosexual Current gender identity: female What type of physical activity do you participate in: walking Seatbelt use: always Helmet use: Yes Drive intox or ride w/intox bobtail driver: No Firearms in home: Yes Firearms unloaded and locked: Yes Do you feel safe at home: Yes Do you feel safe in your relationship?: Yes Female Reproductive History Menstrual control method: pills History History 2 Para 0 Hx # Term Pregnancies 0 Multiple births 0 Hx # Pregnancies 0 Ectopic pregnancies 0 AB induced 0 Hx Number of Living Children 0 AB spontaneous 1 Past Pregnancies Del. Date GA/Weeks # Preg Succ Route Wgt Sex Labor Lgth Anesth esia Location [facility] 05/12/19 Delivery Date: 05/12/19 Last Updated by: Saira Alberto CNM pos. PT and bleeding soon after Meds Allergies and Home Medications Allergies Allergy/AdvReac Type Severity Reaction Status Date / Time amoxicillin Allergy Intermediate skin rash Verified 09/23/22 11:31 Penicillins Allergy Intermediate Skin Rash Verified 09/23/22 11:31 Home Medications Medication Instructions Recorded Confirmed Type fluticasone propionate 50 1 spray intranasal BID #16 grams 09/28/21 09/24/22 Rx mcg/actuation nasal spray,suspension prenat.vits,omero,[id number] 1 tab PO DAILY 03/04/22 09/24/22 History famotidine 20 mg tablet (Pepcid) 20 mg PO DAILY #30 tabs 07/15/22 09/24/22 Rx clindamycin HCl 150 mg capsule 450 mg PO TID #78 caps 09/24/22 Rx levothyroxine 50 mcg tablet See Rx Instructions .Route 09/24/22 09/24/22 Rx .COMPLEX #90 tabs Exam Physical Exam Vital Signs Reviewed: Yes Constitutional Constitutional: mild distress, morbidly obese and cooperative Detailed Labor and Delivery Exam Dilation: 3 Effacement (%): 90 station: -2 Cervix position: mid Consistency: medium WOODALL Score(Cervical Ripeness Score): 7 Amniotic Membrane Status: Intact Fetus A Heart Rate Baseline: 140 Monitor Accelerations: 15 X 15 Monitor Decelerations: Variable Variability: Moderate (6-25 BPM) Categories: Category II Est. Weight: 7 lb 14.986 oz Est. Weight: 3600 gms HEENT Exam HEENT Exam: Normal Neck Exam Neck Exam: Normal Chest/Brest/Axilla Exam Chest Exam: Normal Breast Exam Breast Exam: Not Done Respiratory Exam Respiratory Exam: Normal Cardiovascular Exam Cardiovascular Exam: Normal Abdominal Exam Abdominal Exam: Abnormal (obese with pannus, gravid, nontender) Rectal Exam Rectal Exam: Normal Exam Exam: Normal Extremities Exam Extremities Exam: Normal Back/Spine/Pelvis Exam Back Exam: Normal Pelvis Adequate: Yes Skin Exam Skin Exam: Normal Neurological Exam Neurological Exam: Normal Psychiatric Exam Psychiatric Exam: Normal Results Results Group Beta Strep: Negative Blood Type: A+ Rubella Status: Immune Varicella Immunity: Nonimmune Risk Assessment Risk for Shoulder Dystocia Historical/Initial OB: POSITIVE FOR: Pre- BMI>30; NEGATIVE FOR: Pelvic Abnormality, Previous Shoulder Dystocia or Previous Macrosomia Increased Risk?: Yes Delivery Plan @ 36wks: spont labor, Risk for Pre-Eclampsia Daily Dose ASA Indicated: Yes Date Initiated/Initials: indicated, to start @ 12 wks Yes, if one or more: NEGATIVE FOR: Hx Pre-E/Gest HTN, Chronic HTN, Multiple Gestation, Pre-gestational DM, Renal Disease, Systemic Lupus or APA Syndrome Yes, if 2 or more: POSITIVE FOR: Nulliparity and BMI>30; NEGATIVE FOR: Age>= 35 yrs, >10yr btwn pregnancies, ethinicty, Mother/Sister w/ Pre-E or Previous IUGR Risk for Post- Hemorrhage Initial: NEGATIVE FOR: Multiple Gestation, Previous PPH, Known Clotting Deficiency, Grand Multiparity or Anticoagulation At Risk?: No Counseled re: Active Management: Yes Risks Reviewed Risks Reviewed Upon Admission: Yes
[2022-09-25 04:22] LABS: Source Nasal/Nares
[2022-09-25 04:23] LABS: HGB 11.7 g/dL (11.2-15.7); MCH 26.2 pg (27.0-33.0); MCHC 31.6 % (32.0-36.0); MCV 83 fL (80-95); Platelet Count 297 10^3/uL (130-400); RBC 4.47 10^6/uL (3.93-5.22); RDW-SD 45.2 fL; WBC 13.13 10^3/uL (4.4-10.8)
[2022-09-25 04:56] LABS: COVID-19 PCR Negative (Negative)
--- NOTE | 2022-09-25 09:53 | W.PM.OBNL1 ---
Date of service: 09/25/22 Time of Service: 09:53 Informed Consent Informed Consent: Other (all pain management options reviewed) Pelvic Exam Dilation: 4 Effacement (%): 100 station: -2 Cervix Position: mid Consistency: soft Contractions Monitor Mode: External Contraction Frequency(min): 3-4 Contraction Duration(sec): 60 Intensity: Moderate/Strong Fetus A Monitor: Novii Heart Rate Baseline: 132 Variability: Moderate (6-25 BPM) Categories: Category II (occasional variable) CategoryII Plan of Care: Team Huddle and Observation Accelerations: 15 X 15 Amniotic Membrane Status: Intact Assessment and Plan Assessment and plan (1) Uterine contractions: Status: Acute Assessment and plan: 1. Pain management options of IV pain medication and or epidural reviewed, risks and benefits and expected effects reviewed. Lacey would like to try IV pain medication first and reassess. Overall FHR tracing is reassuring. 2. Reassess in 1-2 hours or prn. KH Objective Abnormal lab results 09/25/22 Range/Units 04:10 WBC 13.13 H (4.4-10.8) 10^3/uL MCH 26.2 L (27.0-33.0) pg MCHC 31.6 L (32.0-36.0) % RDW 15.0 H (11.7-14.6) % Temp Pulse Resp BP 97.9 F 79 18 139/89 09/25/22 05:41 09/25/22 09:43 09/25/22 05:15 09/25/22 09:43 Laboratory Results WBC 13.13 10^3/uL (4.4-10.8) H 09/25/22 04:10 RBC 4.47 10^6/uL (3.93-5.22) 09/25/22 04:10 Hgb 11.7 g/dL (11.2-15.7) 09/25/22 04:10 Hct 37.0 % (36.0-46.0) 09/25/22 04:10 MCV 83 fL (80-95) 09/25/22 04:10 MCH 26.2 pg (27.0-33.0) L 09/25/22 04:10 MCHC 31.6 % (32.0-36.0) L 09/25/22 04:10 RDW 15.0 % (11.7-14.6) H 09/25/22 04:10 Plt Count 297 10^3/uL (130-400) 09/25/22 04:10 MPV 9.0 fL (8.0-11.0) 09/25/22 04:10 COVID-19 Source Nasal/Nares 09/25/22 04:15 SARS-CoV-2 (PCR) Negative (Negative) 09/25/22 04:15 Patient ABO/Rh A Positive 09/25/22 04:10 Antibody Screen NEGATIVE 09/25/22 04:10 Vital Signs Reviewed: Yes Subjective Interval history since last seen: requesting something more for pain management. Has used, movement, tub, nitrous without adequate relief. After discussing options patient would like IV Nubain at this time. KH Results Hemoglobin/Hematocrit: Hgb 11.7 g/dL (11.2-15.7) 09/25/22 04:10 Hct 37.0 % (36.0-46.0) 09/25/22 04:10 Abnormal Lab Findings: Abnormal Labs 09/25/22 04:10 WBC 13.13 H MCH 26.2 L MCHC 31.6 L RDW 15.0 H
[2022-09-25] MEDS: Normal Saline Flush 10 ML SYR IVP (10:05)
[2022-09-25] MEDS: Lactated Ringers 1,000 ML 125 ML IV ×2 (10:24→18:34)
--- NOTE | 2022-09-25 14:42 | W.PM.OBNL1 ---
Date of service: 09/25/22 Time of Service: 14:00 Informed Consent Informed Consent: Other (all pain management options reviewed) Pelvic Exam Dilation: 6 Effacement (%): 100 station: -2 Consistency: soft Contractions Monitor Mode: External Contraction Frequency(min): 2-5 Contraction Duration(sec): 40-60 Intensity: Moderate/Strong Fetus A Heart Rate Baseline: 135 Variability: Moderate (6-25 BPM) Accelerations: 15 X 15 Decelerations: None Amniotic Membrane Status: Intact Assessment and Plan Assessment and plan (1) Normal labor: Status: Acute Assessment and plan: 1. Patient is aware of pain management options. Would like to try another dose of Nubain 2. Continue present management and reassess in 2 hours or prn. KH Objective Abnormal lab results 09/25/22 Range/Units 04:10 WBC 13.13 H (4.4-10.8) 10^3/uL MCH 26.2 L (27.0-33.0) pg MCHC 31.6 L (32.0-36.0) % RDW 15.0 H (11.7-14.6) % Temp Pulse Resp BP 97.9 F 104 H 18 127/76 09/25/22 14:06 09/25/22 14:06 09/25/22 09:43 09/25/22 14:06 Laboratory Results WBC 13.13 10^3/uL (4.4-10.8) H 09/25/22 04:10 RBC 4.47 10^6/uL (3.93-5.22) 09/25/22 04:10 Hgb 11.7 g/dL (11.2-15.7) 09/25/22 04:10 Hct 37.0 % (36.0-46.0) 09/25/22 04:10 MCV 83 fL (80-95) 09/25/22 04:10 MCH 26.2 pg (27.0-33.0) L 09/25/22 04:10 MCHC 31.6 % (32.0-36.0) L 09/25/22 04:10 RDW 15.0 % (11.7-14.6) H 09/25/22 04:10 Plt Count 297 10^3/uL (130-400) 09/25/22 04:10 MPV 9.0 fL (8.0-11.0) 09/25/22 04:10 COVID-19 Source Nasal/Nares 09/25/22 04:15 SARS-CoV-2 (PCR) Negative (Negative) 09/25/22 04:15 Patient ABO/Rh A Positive 09/25/22 04:10 Antibody Screen NEGATIVE 09/25/22 04:10 Results Hemoglobin/Hematocrit: Hgb 11.7 g/dL (11.2-15.7) 09/25/22 04:10 Hct 37.0 % (36.0-46.0) 09/25/22 04:10 Abnormal Lab Findings: Abnormal Labs 09/25/22 04:10 WBC 13.13 H MCH 26.2 L MCHC 31.6 L RDW 15.0 H
--- NOTE | 2022-09-25 17:30 | PGE_ITS ---
Date of service: 09/25/22 Time of Service: 17:30 Informed Consent Informed Consent: Other (all pain management options reviewed) Pelvic Exam Dilation: 7.5 Effacement (%): 100 station: -1 Cervix Position: mid Contractions Monitor Mode: Palpation Contraction Frequency(min): 3-4 Contraction Duration(sec): 60 Intensity: Moderate/Strong Fetus A Monitor: Novii (recording on tracing strip but not always on Periwatch) Heart Rate Baseline: 125 Variability: Moderate (6-25 BPM) Accelerations: 15 X 15 Decelerations: Variable (occasional variable, not repetitive or becoming deeper or longer) Assessment and Plan Assessment and plan (1) Normal labor: Status: Acute Assessment and plan: 1.continue present management, offered AROM but declined 2. Reassess in 2 hours or prn, update on patient status given to Dr. Somers who is OB physician clip on sunglasses inspector tonight. 3. Expect NVD Objective Abnormal lab results 09/25/22 Range/Units 04:10 WBC 13.13 H (4.4-10.8) 10^3/uL MCH 26.2 L (27.0-33.0) pg MCHC 31.6 L (32.0-36.0) % RDW 15.0 H (11.7-14.6) % Temp Pulse Resp BP 97.9 F 103 H 18 132/58 L 09/25/22 16:36 09/25/22 16:36 09/25/22 09:43 09/25/22 16:36 Laboratory Results WBC 13.13 10^3/uL (4.4-10.8) H 09/25/22 04:10 RBC 4.47 10^6/uL (3.93-5.22) 09/25/22 04:10 Hgb 11.7 g/dL (11.2-15.7) 09/25/22 04:10 Hct 37.0 % (36.0-46.0) 09/25/22 04:10 MCV 83 fL (80-95) 09/25/22 04:10 MCH 26.2 pg (27.0-33.0) L 09/25/22 04:10 MCHC 31.6 % (32.0-36.0) L 09/25/22 04:10 RDW 15.0 % (11.7-14.6) H 09/25/22 04:10 Plt Count 297 10^3/uL (130-400) 09/25/22 04:10 MPV 9.0 fL (8.0-11.0) 09/25/22 04:10 COVID-19 Source Nasal/Nares 09/25/22 04:15 SARS-CoV-2 (PCR) Negative (Negative) 09/25/22 04:15 Patient ABO/Rh A Positive 09/25/22 04:10 Antibody Screen NEGATIVE 09/25/22 04:10 Subjective Interval history since last seen: Lacey requested VE. 7.5/100/-1 + show. Membranes bulging with contractions. She and her support team are working very well together. KH Results Hemoglobin/Hematocrit: Hgb 11.7 g/dL (11.2-15.7) 09/25/22 04:10 Hct 37.0 % (36.0-46.0) 09/25/22 04:10 Abnormal Lab Findings: Abnormal Labs 09/25/22 04:10 WBC 13.13 H MCH 26.2 L MCHC 31.6 L RDW 15.0 H
[2022-09-25] MEDS: Bupivacaine 0.25% Pres-Free 10 ML VIAL EP (20:37)
[2022-09-25] MEDS: fentaNYL 100 MCG/2 ML VIAL EP (20:38)
[2022-09-25] MEDS: Clindamycin 150 MG CAP 450 MG PO (20:46)
--- NOTE | 2022-09-25 20:52 | W.ANESPRE ---
General Info Date of Service Date Performed: 09/25/22 Height: 5 ft 4 in Weight: 107.501 kg Body Mass Index (BMI): 40.6 Meds Allergies and Home Medications Allergies Allergy/AdvReac Type Severity Reaction Status Date / Time amoxicillin Allergy Intermediate skin rash Verified 09/23/22 11:31 Penicillins Allergy Intermediate Skin Rash Verified 09/23/22 11:31 Home Medication Medication Instructions Recorded fluticasone propionate 50 1 spray intranasal BID #16 grams 09/28/21 mcg/actuation nasal spray,suspension prenat.vits,omero,[id number] 1 tab PO DAILY 03/04/22 famotidine 20 mg tablet (Pepcid) 20 mg PO DAILY #30 tabs 07/15/22 clindamycin HCl 150 mg capsule 450 mg PO TID #78 caps 09/24/22 levothyroxine 50 mcg tablet See Rx Instructions .Route 09/24/22 .COMPLEX #90 tabs Current Visit Medications: Current Medications Generic Name Dose Route Start Last Admin Trade Name Freq PRN Reason Stop Dose Admin Benzocaine/Menthol 1 each 09/25/22 11:31 Benzocaine/Menthol Lozg 18/Box SUC Q6H PRN PRN Clindamycin HCl 450 mg 09/25/22 08:30 09/25/22 20:46 Clindamycin 150 Mg Cap PO 450 mg TID WISAM Administration Famotidine 20 mg 09/25/22 08:30 09/25/22 12:01 Famotidine 20 Mg Tab PO Not Given DAILY WISAM Fentanyl/Ropivacaine 200 ml 09/25/22 19:30 Fentanyl/Ropivacaine 2 Mcg/Ml And 0.1% 200 Ml Cadd Cassette EP DIRECTED WISAM Sodium Chloride 500 mls @ 0 mls/hr 09/25/22 04:42 Saline 500ml Bag IV PRN PRN As Directed Ringer's Solution 1,000 mls @ 125 mls/hr 09/25/22 04:45 09/25/22 20:32 IV 200 mls/hr INFUSION WISAM Infusion Ringer's Solution 1,000 mls @ 125 mls/hr 09/25/22 10:00 IV INFUSION PRN labor IV Miscellaneous Supplies 1 each 09/25/22 04:45 Iv Access IV DIRECTED WISAM Levothyroxine Sodium 50 mcg 09/25/22 06:00 09/25/22 10:10 Levothyroxine 50 Mcg Tab PO Not Given 0600 WISAM Sodium Chloride 0 ml 09/25/22 04:42 09/25/22 10:05 Normal Saline Flush 10 Ml Syr IVP 10 ml PRN PRN Administration PFSH Active Problems Active Problems: Problem Status Onset Code Normal labor O80, Z37.9 Uterine contractions O47.9 Pain, dental K08.89 Hypothyroid in , antepartum O99.280, E03.9 COVID-19 ~04/29/22 U07.1 Maternal varicella, non-immune O09.899, Z28.39 BMI 37.0-37.9, adult Z68.37 Z34.90 Obesity E66.9 Medical History Medical History (Updated 09/25/22 @ 14:44 by Saira Cueva CNM) Acute left ankle pain Acute pain of left shoulder ADHD (attention deficit hyperactivity disorder) no medications after age 15 Chlamydia infection Rx sent to [facility] 04/16/21 Concussion Mild - one day of headache and being tired Elevated TSH First trimester bleeding High BMI BMI 43 Irregular periods/menstrual cycles Migraine headache without aura resolved 2017 Muscle spasm Pelvic pain SAB (spontaneous ) 2018 and 2020 Vaginal discharge Surgical History Surgical History H/O wisdom tooth extraction Tobacco Smoking/Tobacco Use Status: Never Passive smoking exposure: Yes (Grandfather, smokes inside) Second hand exposure: Yes Alcohol Alcohol Intake: never Substance Use Substance use: Never Substance use type: does not use Prental History History 2 Para 0 Hx # Term Pregnancies 0 Multiple births 0 Hx # Pregnancies 0 Ectopic pregnancies 0 AB induced 0 Hx Number of Living Children 0 AB spontaneous 1 Past Pregnancies Del. Date GA/Weeks # Preg Succ Route Wgt Sex Labor Lgth Anesthesia Location Prov Complic 05/12/19 Delivery Date: 05/12/19 Last Updated by: Saira Alberto CNM pos. PT and bleeding soon after Vital Signs and Lab Results Vital Signs Most Recent Vital Signs in EMR: Most Recent Vital Signs Temp Pulse Resp BP Pulse Ox 36.8 C 131 H 18 123/56 L 100 09/25/22 20:42 09/25/22 20:51 09/25/22 09:43 09/25/22 20:48 09/25/22 20:51 Lab Results 09/25/22 04:10 Blood Type / Crossmatch: Patient ABO/Rh A Positive 09/25/22 Antibody Screen NEGATIVE 09/25/22 Complete Blood Count: White Blood Count 13.13 10^3/uL (4.4-10.8) H 09/25/22 04:10 Red Blood Count 4.47 10^6/uL (3.93-5.22) 09/25/22 04:10 Hemoglobin 11.7 g/dL (11.2-15.7) 09/25/22 04:10 Hematocrit 37.0 % (36.0-46.0) 09/25/22 04:10 Platelet Count 297 10^3/uL (130-400) 09/25/22 04:10 Complete Metabolic Panel: No Data to Display Liver Function Panel: No Data to Display Coagulation Panel: No Data to Display Cardiac Panel: No Data to Display Arterial Blood Gas: No Data to Display Venous Blood Gas: No Data to Display Pancreas Panel: No Data to Display Thyroid Panel: No Data to Display Infectious Disease: Coronavirus (COVID-19)(PCR) Negative (Negative) 09/25/22 04:15 Coronavirus 2019 Source Nasal/Nares 09/25/22 04:15 Blood Cultures: No Data to Display Toxicology Panel: Urine Amphetamines Screen Negative (Negative) 09/16/22 15:10 Urine Benzodiazepines Screen Negative (Negative) 09/16/22 15:10 Urine Barbiturates Screen Negative (Negative) 09/16/22 15:10 Urine Cocaine Screen Negative (Negative) 09/16/22 15:10 Urine Methadone Screen Negative (Negative) 09/16/22 15:10 Urine Opiates Screen Negative (Negative) 09/16/22 15:10 Ur Tricyclic Antidepressants Screen Negative (Negative) 09/16/22 15:10 Ur Tetrahydrocannabinol (THC) Scrn Negative (Negative) 09/16/22 15:10 Panel: No Data to Display Anesthesia Assessment and Plan Anesthesia History Personal History: No History of Anesthesia Complications Family History: No Family History of Anesthesia Complications Exercise Tolerance Exercise Tolerance: Metabolic Equivalents>4 Pertinent Negatives Pertinent Negatives: No Major Cardiovascular Symptoms or Complaints, No Major Pulmonary Symptoms or Complaints and No History of CVA/TIA Cardiac & Pulmonary Exam Cardiac Exam: Normal S1/S2 Heart Sounds Pulmonary Exam: Clear Bilateral Breath Sounds Implantable Cardiac Device Does patient have a Pacemaker or an ICD?: No Airway Exam Known Difficult Airway: No Mallampati Class: 3 Mouth Opening: Normal (> 3cm) Thyromental Distance: Greater than 3 cm Neck Range of Motion: Full ROM Neck Circumference: Thick Teeth Condition: Generalized Poor Dentition (Infected teeth that need to be pulled, was scheduled for this week, on antibiotics) ASA Classification ASA Score: ASA 3 Emergency Case?: No NPO Status NPO Status: Full Stomach () Status Status: Confirmed Anesthesia Plan Resuscitation Status: Full Code Anesthesia Technique: Epidural Anesthesia Airway Planned: Natural Airway Monitors Used: Standard Monitors Preoperative Comments:: Varioptic alverto , original preop completed on paper at 1947
--- NOTE | 2022-09-25 20:53 | W.PM.OBNL1 ---
Date of service: 09/25/22 Time of Service: 20:53 Informed Consent Informed Consent: Other (all pain management options reviewed) Pelvic Exam Dilation: 8 Effacement (%): 100 station: -1 Contractions Monitor Mode: External Contraction Frequency(min): 2-5 Contraction Duration(sec): 40-80 Intensity: Moderate/Strong Fetus A Monitor: External (US) Heart Rate Baseline: 135 Variability: Moderate (6-25 BPM) Categories: Category I Amniotic Membrane Status: Intact Assessment and Plan Assessment and plan (1) Normal labor: Status: Acute Assessment and plan: 1. Epidural requested and placed. Patient tolerated well but did have some increased HR. Much more comfortable 2. Reviewed with patient that it is not uncommon for contractions to space once epidural is in place and that pitocin or AROM with pitocin would be recommended if that occurs over the next 1-2 hours. Patient agrees to repeat exam in 1-2 hours. KH Objective Abnormal lab results 09/25/22 Range/Units 04:10 WBC 13.13 H (4.4-10.8) 10^3/uL MCH 26.2 L (27.0-33.0) pg MCHC 31.6 L (32.0-36.0) % RDW 15.0 H (11.7-14.6) % Temp Pulse Resp BP Pulse Ox 98.3 F 131 H 18 123/56 L 100 09/25/22 20:42 09/25/22 20:51 09/25/22 09:43 09/25/22 20:48 09/25/22 20:51 Laboratory Results WBC 13.13 10^3/uL (4.4-10.8) H 09/25/22 04:10 RBC 4.47 10^6/uL (3.93-5.22) 09/25/22 04:10 Hgb 11.7 g/dL (11.2-15.7) 09/25/22 04:10 Hct 37.0 % (36.0-46.0) 09/25/22 04:10 MCV 83 fL (80-95) 09/25/22 04:10 MCH 26.2 pg (27.0-33.0) L 09/25/22 04:10 MCHC 31.6 % (32.0-36.0) L 09/25/22 04:10 RDW 15.0 % (11.7-14.6) H 09/25/22 04:10 Plt Count 297 10^3/uL (130-400) 09/25/22 04:10 MPV 9.0 fL (8.0-11.0) 09/25/22 04:10 COVID-19 Source Nasal/Nares 09/25/22 04:15 SARS-CoV-2 (PCR) Negative (Negative) 09/25/22 04:15 Patient ABO/Rh A Positive 09/25/22 04:10 Antibody Screen NEGATIVE 09/25/22 04:10 Subjective Interval history since last seen: Lacey had requested epidural at 1905 and anesthesia was paged. currently epidural is in place and patient is much more comfortable and napping. KH Results Hemoglobin/Hematocrit: Hgb 11.7 g/dL (11.2-15.7) 09/25/22 04:10 Hct 37.0 % (36.0-46.0) 09/25/22 04:10 Abnormal Lab Findings: Abnormal Labs 09/25/22 04:10 WBC 13.13 H MCH 26.2 L MCHC 31.6 L RDW 15.0 H
--- NOTE | 2022-09-25 21:00 | W.ANESNEU ---
Epidural/Spinal Catheter Date Performed: 09/25/22 Procedure Start: 19:53 Procedure Stop: 20:40 Requesting Provider: Saira Cueva Procedure Location: Obstetrics Reason Performed: Labor Epidural Standard Monitors Applied: Blood Pressure, SpO2 and See EMR for corresponding vital signs Patient Position: Sitting Sedation Given (Indicate Dose Given): No Sedation given Patient Mental Status: Awake Sterility: Hand Hygiene, Surgical Cap, Surgical Mask, Sterile Gloves, Sterile Drape/Sheet and Chlorhexidine Procedure Location: L2-L3 Interspace Epidural Needle: Tuohy 18 Gauge Needle Length: 3.5 Inch Needle Approach: Midline Epidural Procedure: Skin Prepped, Sterile Drape Placed, 1% Lidocaine to skin and subcutaneous tissue with 25G needle, Tuohy Needle placed, Bone Contacted despite needle repositioning (First attempt at L3-4 unsuccessful), ZOË to Saline Used, Epidural Catheter Placed, Negative Heme, Negative CSF Flow and Tuohy Needle Removed Catheter Placed?: Catheter Placed Test Dose (Indicate Dose Given): 3ml 1.5% Lidocaine with 1:200K Epinephrine Given and Negative Test Dose Loss of Resistance Depth (cm): 8 Catheter depth at skin (cm): 14 Dressing: [place]orbav[place] Dressing Placed, Mastisol Used and Dressing reinforced with Tape Epidural Provider Bolus (Indicate Dose Given): Total bolus dose given in 3-5 ml divided doses and Total Bupivacaine 0.25% Given (ml) Dose:: 7 ml Additives (Indicate Dose Given ): Fentanyl PF Dose:: 100 mcg Infusion Medication: Medication Infusion Began Medication Infusion: Ropivacaine 0.1% with Fentanyl 2mcg/ml Maintenance Infusion Rate (ml/hour): 10 PCEA Bolus Dose (ml): 5 Post Procedure Pain score (0-10): 0 Block Level: N/A Paresthesia: None Ultrasound: Not Used Number of Attempts (See previous attempts in note section): 2 Procedure Tolerated: Patient tolerated well Procedure Outcome: Successful Procedure Comment:: Waited approx. 4 minutes after negative test dose to give bolus, and was given in divided doses with no change in sensation or HR. Within a few minutes of finishing the bolus patient's heart rate elevated to 120's, with intermittent bursts to 150. Patient asymptomatic, BP stable, no other signs of LAST, states her contraction discomfort is mostly gone and feels great. Continued to monitor. IV fluids increased to 200 ml/hr per compressor operator adjuster, patient continues to be asymptomatic with stable BP. Good bilateral leg strength. Patient able to get up to the commode. Performed By: Tricia Obando
[2022-09-25] MEDS: Oxytocin/Normal Saline 30 UNIT/500 ML BAG 2 UNITS IV (22:35)
--- NOTE | 2022-09-25 23:04 | W.PM.OBNL1 ---
Date of service: 09/25/22 Time of Service: 22:10 Informed Consent Informed Consent: Augmentation of Labor and Other (all pain management options reviewed) Pelvic Exam Dilation: 8.5 Effacement (%): 100 station: -1 Position: ROP Cervix Position: mid Consistency: soft Contractions Monitor Mode: External Contraction Frequency(min): irregular Contraction Duration(sec): irregular Intensity: Mild/Moderate Fetus A Monitor: External (US) Heart Rate Baseline: 140 Variability: Minimal (1-5 BPM) (recently moderate variability) Accelerations: 10 X 10 Decelerations: None Amniotic Membrane Status: Intact Assessment and Plan Assessment and plan (1) Prolonged second stage (of labor): Status: Acute Assessment and plan: 1. Will begin pitocin augmentation at 2 mu and reassess in 1-2 hours or when adequate contractions have been occurring for at least 1 hour or as indicated by maternal/ status. Objective Abnormal lab results 09/25/22 Range/Units 04:10 WBC 13.13 H (4.4-10.8) 10^3/uL MCH 26.2 L (27.0-33.0) pg MCHC 31.6 L (32.0-36.0) % RDW 15.0 H (11.7-14.6) % Temp Pulse Resp BP Pulse Ox 98.3 F 127 H 18 123/56 L 100 09/25/22 20:42 09/25/22 21:11 09/25/22 09:43 09/25/22 20:48 09/25/22 21:11 Laboratory Results WBC 13.13 10^3/uL (4.4-10.8) H 09/25/22 04:10 RBC 4.47 10^6/uL (3.93-5.22) 09/25/22 04:10 Hgb 11.7 g/dL (11.2-15.7) 09/25/22 04:10 Hct 37.0 % (36.0-46.0) 09/25/22 04:10 MCV 83 fL (80-95) 09/25/22 04:10 MCH 26.2 pg (27.0-33.0) L 09/25/22 04:10 MCHC 31.6 % (32.0-36.0) L 09/25/22 04:10 RDW 15.0 % (11.7-14.6) H 09/25/22 04:10 Plt Count 297 10^3/uL (130-400) 09/25/22 04:10 MPV 9.0 fL (8.0-11.0) 09/25/22 04:10 COVID-19 Source Nasal/Nares 09/25/22 04:15 SARS-CoV-2 (PCR) Negative (Negative) 09/25/22 04:15 Patient ABO/Rh A Positive 09/25/22 04:10 Antibody Screen NEGATIVE 09/25/22 04:10 Subjective Interval history since last seen: Lacey remains very comfortable. She is not aware of any contractions. Contractions have spaced out and I reviewed options of continued expectant management, pitocin augmentation or AROM with possible pitocin augmentation. I reviewed risks and benefits to each. She prefers to use pitocin to help make contractions more regular and strong again. KH Interventions Augmentation , Pitocin rate (mU/min): 2 (will increase by 2mu every 30 minutes until adequate contraction frequency, duration and intensity is noted. ) Results Hemoglobin/Hematocrit: Hgb 11.7 g/dL (11.2-15.7) 09/25/22 04:10 Hct 37.0 % (36.0-46.0) 09/25/22 04:10 Abnormal Lab Findings: Abnormal Labs 09/25/22 04:10 WBC 13.13 H MCH 26.2 L MCHC 31.6 L RDW 15.0 H
[2022-09-26] VITALS (16 sets, daily range): BP systolic 105–145; BP diastolic 54–93; PULSE 95–131; RESP 18; TEMP 36.4–37.6; O2SAT 100
[2022-09-26] MEDS: Lactated Ringers 1,000 ML 125 ML IV (01:00)
[2022-09-26] MEDS: Oxytocin/Normal Saline 30 UNIT/500 ML BAG 167 UNITS IV (02:09)
--- NOTE | 2022-09-26 02:37 | W.OBDELIVERY ---
Date of service: 09/26/22 Time of Service: 02:38 OB Labor/ Delivery Information Baby A Delivery Delivery Method: Spontaneaous Presentation: Cephalic Cephalic Position: Vertex Vertex Position: Right Occipital Anterior Cord Description-Baby A: 3 Vessels and Clamped/Cut Amniotic Fluid: Clear Estimated Blood Loss: 250 Delivery Outcome: Liveborn Infant Complications: none Transferred: Remains with Mother Note: Lacey presented with labor onset at 38w2d. She had steady progress to 8 cm and became uncomfortable to require epidural. FHR tracing fluctuated between CAT I and CAT II due to irregular variable decelerations throughout labor and . After epidural, contractions became irregular and pitocin augmentation was started with max dose of 4 mu. She was noted to feel pressure and had anterior lip. Straight cath at that time for 250cc urine and at that time baby had FHR decel to 70 over 2-3minutes. FHR recovered and with next contraction she had SROM at 0145 for clear fluid and urge to push. Second stage huddle was held. She pushed with great effort and delivered a live male over 1st degree clitoral and vaginal lacerations at 0209. Baby presented ERIKA and shoulders delivered quickly after head, Lacey was able to reach to bring her baby to her abdomen for skin to skin. Delayed cord clamping for approximately 3 minutes was done and then double clamped and cut by Micheal AYALA. Placenta delivered at 0215, intact. Fundus firmed at U and EBL 250cc. pitocin was started per orders after baby was delivered for active management of third stage.Positive family bonding was noted. Baby shakir Reed will be breast fed. Chiquis plan circumcision for their son. Will expect normal PP course and discharge to home in 24-48 hours. Weight 2865g. Providers Nurse Manager Of Application Development: Saira Cueva Nurse: Linh Wheatley Nurse: Beverly Valdez Labor/Delivery Information Number of Babies in Womb: 1 Steroids Given: None Reason Steroids Not Administered: N/A Group Beta Strep: Negative Antibiotics Administered: No Rubella Status: Immune Blood Type: A+ Varicella Immunity: Nonimmune Maternal Complications: None Shoulder Dystocia: No Stages of Labor Onset of Labor Date: 09/25/22 Onset of Labor Time: 00:00 Complete Dilatation Date: 09/26/22 Complete Dilatation Time: 01:45 Labor - Stage 1 Duration: 25 hours and 45 minutes ROM Baby A: 09/26/22 ROM Baby A: 01:45 ROM Total Time- Baby A: [id number] Infant Delivery Date-Baby A: 09/26/22 Delivery Time-Baby A: 02:09 Labor Stage 2 Duration: 24 minutes Placenta Delivery Date-Baby A: 09/26/22 Placenta Delivery Time-Baby A: 02:15 Labor-Stage 3 Duration: 6 minutes Total Length of Labor-Baby A: 26 hours and 9 minutes Placenta Cultured: No Placenta Status: Delivered Baby A Infant Gender: Male Gestational Status: Early Term (37-38.6 wks) Gestational Age in Weeks/Days: 38 Weeks and 3 Days Score-1 Minute Interval(Baby A) Heart Rate-1 minute: 100 BPM or Greater Respiratory Effort- 1 minute: Spontaneous/Strong Cry Muscle Tone-1 minute: Active Movement Reflex Response-1 minute: Prompt Response Color-1 minute: Bluish Hands or Feet Total Score-1 minute: 9 Score-5 Minute Interval(Baby A) Heart Rate- 5 minute: 100 BPM or Greater Respiratory Effort-5 minute: Spontaneous/Strong Cry Muscle Tone-5 minute: Active Movement Reflex Response-5 minute: Prompt Response Color-5 minute: Bluish Hands or Feet Total Score- 5 minute: 9
[2022-09-26] MEDS: Lidocaine 1% Multi-Dose 20 ML VIAL IJ (02:53)
[2022-09-26] MEDS: Acetaminophen 325 MG TAB 650 MG PO ×3 (04:24→18:12)
[2022-09-26] MEDS: Ibuprofen 600 MG TAB PO ×3 (04:25→18:13)
[2022-09-26] MEDS: Levothyroxine 50 MCG TAB PO (05:48)
[2022-09-26] MEDS: Famotidine 20 MG TAB PO (08:52)
[2022-09-26] MEDS: Clindamycin 150 MG CAP 450 MG PO ×2 (08:52→16:31)
--- NOTE | 2022-09-26 14:22 | W.ANESPOSTOP ---
Postoperative Evaluation Date, Time and Location Date Performed: 09/26/22 Time Performed: 14:22 Patient Location: Obstetrics Vital Signs Most Recent Imported Vital Signs: Most Recent Vital Signs Temp Pulse Resp BP Pulse Ox 36.4 C L 95 H 18 105/66 100 09/26/22 08:44 09/26/22 08:44 09/26/22 08:44 09/26/22 08:44 09/25/22 21:11 Pain Score Most Recent Pain Score: Most Recent Pain Score Pain Level 3 09/25/22 05:41 Assessment Mental Status: Awake (Alert & Oriented to Patient Baseline) Airway and Respiratory Function: Patent airway with normal (patient baseline) respiratory exam Cardiovascular Function: Hemodynamically Stable Hydration Status: Adequately Hydrated Nausea & Vomiting: No Nausea or Vomiting Pain: Pt. Denies Any Pain Peripheral Nerve Block: Other (epidural has worn off, is having soreness at the site, discussed that it can take a little while to get better. )
[2022-09-26] MEDS: Ondansetron O.D.T. 4 MG TABEF 8 MG PO (17:10)
[2022-09-26] MEDS: Hamamelis Leaf/Glycerin 100 EACH BOX PR (20:04)
[2022-09-26] MEDS: Docusate Sodium 100 MG CAP PO (20:04)
[2022-09-26] MEDS: Dibucaine 1% 28 GM TUBE (20:05)
[2022-09-27] MEDS: Clindamycin 150 MG CAP 450 MG PO ×4 (00:09→20:43)
[2022-09-27] MEDS: Acetaminophen 325 MG TAB 650 MG PO ×3 (00:10→22:54)
[2022-09-27] MEDS: Levothyroxine 50 MCG TAB PO (07:35)
[2022-09-27 08:00] VITALS: BP 121/85; PULSE 95; RESP 16; TEMP 36.7
[2022-09-27] MEDS: Famotidine 20 MG TAB PO (08:07)
--- NOTE | 2022-09-27 08:19 | W.PM.OBPNV1 ---
Date of service: 09/27/22 Time of Service: 08:20 Assessment and Plan Assessment and plan (1) care following vaginal delivery: Status: Acute Assessment and plan: 1. Normal PP state, continue present management 2. Plan discharge later today or tomorrow 3. Will need VZV prior to discharge and is planning Depo Provera for contraception prior to discharge (2) Lactating mother: Status: Acute Assessment and plan: 1. Has a feeding plan that is working for her. Continue present management. Subjective Subjective Patient comments: No complaints Narrative: Feeling much better. Has had BM. Plans to stay til tonight or tomorrow due to breast feeding. She has worked on a feeding plan and feels good about it. Exam Physical Exam Vital signs: Temp Pulse Resp BP Pulse Ox 97.9 F 95 H 18 115/75 100 09/26/22 19:56 09/26/22 19:56 09/26/22 19:56 09/26/22 19:56 09/26/22 19:56 Vital Signs Reviewed: Yes Constitutional Constitutional: no acute distress, average body habitus and cooperative HEENT Exam HEENT Exam: Normal Neck Exam Neck Exam: Normal (normal visual inspection) Respiratory Exam Respiratory Exam: Normal Cardiovascular Exam Cardiovascular Exam: Normal Abdominal Exam Abdomen: Other (normal exam) Fundal Exam Fundus: Below Umbilicus and Firm Comment: small lochia noted. Rectal Exam Rectal Exam: Not Done Exam Perineum: Normal and Repair Intact Extremities Exam Extremity Exam: Normal (denies calf tenderness) and Full ROM Back/Spine/Pelvis Exam Back Exam: Normal Skin Exam Skin Exam: Normal Neurological Exam Neurological Exam: Normal Psychiatric Exam Psychiatric Exam: Normal Results Hemoglobin/Hematocrit: Hgb 11.7 g/dL (11.2-15.7) 09/25/22 04:10 Hct 37.0 % (36.0-46.0) 09/25/22 04:10 Abnormal Lab Findings: Abnormal Labs 09/25/22 04:10 WBC 13.13 H MCH 26.2 L MCHC 31.6 L RDW 15.0 H
[2022-09-27] MEDS: Ibuprofen 600 MG TAB PO ×2 (15:30→22:54)
[2022-09-27 16:15] VITALS: BP 123/86; PULSE 65; RESP 16; TEMP 36.4; O2SAT 98
[2022-09-28] MEDS: Ibuprofen 600 MG TAB PO (04:06)
[2022-09-28] MEDS: Acetaminophen 325 MG TAB 650 MG PO (04:07)
[2022-09-28] MEDS: Levothyroxine 50 MCG TAB PO (08:04)
[2022-09-28] MEDS: Famotidine 20 MG TAB PO (08:04)
[2022-09-28] MEDS: Clindamycin 150 MG CAP 450 MG PO (08:05)
[2022-09-28 08:30] VITALS: BP 122/81; PULSE 64; TEMP 36.3
--- NOTE | 2022-09-28 08:42 | DSE_ITS ---
Date of service: 09/28/22 Time of Service: 08:42 DS: Diagnosis Discharge Diagnosis (1) care following vaginal delivery: Status: Acute Asessment and Plan: 1. Normal PP course to date 2. Reviewed PP warning signs and when/how to contact provider religious education teacher 3. RTO in 2 weeks 4. Will get Depo Provera 150 mg IM and Varicella vaccine dose prior to discharge. (2) Lactating mother: Status: Acute Asessment and Plan: 1. Is pumping and feeding baby breast milk and supplementing as needed, plans to try to put baby to breast as well when he is interested in latching. 2. Will follow up with Pediatrics as scheduled. 3. Signs of mastitis reviewed and handout will be given. 4. RX for Lanolin cream will be sent to pharmacy 5. RTO in 2 weeks or prn. Discharge Plan Disposition Patient Disposition: Home Condition: Good Discharge Details Reason For Visit: Term Labor Admit Date/Time: 09/25/22 04:00 Admit Provider: Jacey Valdez Attending Provider: Jacey Valdez [facility] Hospital Course: Augmented labor with epidural for pain management resulting in NVD of live male. Right periurethral 1st degree with repair and vaginal introitus 1st degree with repair. Normal PP course. Plans depo provera prior to discharge. Accepts VZV vaccine prior to discharge. Will RTO in 2 weeks or prn. Home Meds and New Rx's Prescriptions: New acetaminophen 325 mg Tablet 650 mg PO Q4H PRN PRNQty: 90 0RF docusate sodium [Colace] 100 mg Capsule 100 mg PO BID PRN PRNQty: 90 0RF ibuprofen 600 mg Tablet 600 mg PO Q6H PRN PRNQty: 90 0RF Continued fluticasone propionate 50 mcg/actuation spray,suspension 1 spray intranasal BID Qty: 16 1RF Rx Instructions: administer into each nostril prenat.vits,omero,[id number] Tablet 1 tab PO DAILY famotidine [Pepcid] 20 mg tablet 20 mg PO DAILY Qty: 30 4RF levothyroxine 50 mcg tablet See Rx Instructions .ROUTE .COMPLEX Qty: 90 0RF Dose Instruction: TAKE ONE TABLET BY MOUTH ONCE DAILY Rx Instructions: TAKE ONE TABLET BY MOUTH ONCE DAILY clindamycin HCl 150 mg capsule 450 mg PO TID Qty: 78 0RF Discharge Instructions Instructions: Acetaminophen (By mouth), Ibuprofen (By mouth), Laxative, Stool Softeners (By mouth), Mastitis (GEN), Depression (DC), Perineal Care (DC) Stand Alone Forms: BC Instructions, BC Post Vaginal Deliver Activity:: Activity as Tolerated Equipment/Supplies:: No Equipment Needed Diet:: As Tolerated Discharge Orders Discharge Orders: Discharge Order (Routine); Ordered 09/28/22 Ordered By: Saira Cueva OB:DS Summary Summary Vaginal Delivery Method: Spontaneaous Laceration Extension: First Degree Contraception Discussed Contraception Discussed: Yes Contraceptive Plan: Medroxyprogesterone (will get dose prior to discharge), Infant Gender-Baby A: Male weight: 6 lb 5.06 oz Status at Discharge Functional status at discharge: independent ambulation Overall status at discharge: patient is back to baseline Mental Status: mental status grossly normal Speech and Movement: speech and movement normal Mood: congruent mood Affect: normal affect Time Spent with Patient providing and/or coordinating discharge services: Less than 30 minutes Exam Physical Exam Vital signs: Temp Pulse Resp BP Pulse Ox 97.5 F L 65 16 123/86 98 09/27/22 16:15 09/27/22 16:15 09/27/22 16:15 09/27/22 16:15 09/27/22 16:15 Vital Signs Reviewed: Yes Constitutional Constitutional: no acute distress, average body habitus and cooperative HEENT Exam HEENT Exam: Normal Neck Exam Neck Exam: Normal (normal visual inspection) Respiratory Exam Respiratory Exam: Normal Cardiovascular Exam Cardiovascular Exam: Normal Abdominal Exam Abdomen: Other (normal exam) Fundal Exam Fundus: Below Umbilicus and Firm Comment: small lochia noted. KH Rectal Exam Rectal Exam: Not Done Exam Perineum: Normal and Repair Intact Extremities Exam Extremity Exam: Normal (denies calf tenderness) and Full ROM Back/Spine/Pelvis Exam Back Exam: Normal Skin Exam Skin Exam: Normal Neurological Exam Neurological Exam: Normal Psychiatric Exam Psychiatric Exam: Normal PFSH All Active Problems Lactating mother (Acute) care following vaginal delivery (Acute) Pain, dental (Acute) Hypothyroid in , antepartum (Acute) COVID-19 (Acute ~04/29/22) Maternal varicella, non-immune (Acute) BMI 37.0-37.9, adult (Acute) (Acute) Obesity (Chronic) Medical History Acute left ankle pain Acute pain of left shoulder ADHD (attention deficit hyperactivity disorder) no medications after age 15 Chlamydia infection Rx sent to [facility] 04/16/21 Concussion Mild - one day of headache and being tired Elevated TSH First trimester bleeding High BMI BMI 43 Irregular periods/menstrual cycles Migraine headache without aura resolved 2018 Muscle spasm Normal labor Pelvic pain Prolonged second stage (of labor) SAB (spontaneous ) 2018 and 2020 Uterine contractions Vaginal discharge Surgical History H/O wisdom tooth extraction Family History Mother Bipolar 1 disorder, depressed Father , 45 Anxiety Depression Heart disease Myocardial infarction at age 45 Maternal Grandfather , in his late 70s Alzheimer's dementia Maternal Grandmother , at 69 of lung cancer Lung cancer Paternal Grandfather Type 2 diabetes mellitus Asthma Heart disease Cancer Paternal Grandmother Hyperlipidemia Hypertension Thyroid disease Social History Smoking/Tobacco Use Status: Never Second Hand Exposure: Yes Smoking risk assessment performed?: Yes Alcohol Intake: never Drug use: Never Substance use type: does not use Caregiver/Support person: Yes Foster care: No Household members: other Details: Livs with Grandparents Housing: other Details: [place] with Grandparents 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 Pets and animals: Yes Pets and animals: cat(s) and dog(s) Sexually active: Yes Do you think of yourself as: straight/heterosexual Current gender identity: female What type of physical activity do you participate in: walking Seatbelt use: always Helmet use: Yes Drive intox or ride w/intox superintendent drivers: No Firearms in home: Yes Firearms unloaded and locked: Yes Do you feel safe at home: Yes Do you feel safe in your relationship?: Yes Female Reproductive History Menstrual control method: pills History History 2 Para 0 Hx # Term Pregnancies 0 Multiple births 0 Hx # Pregnancies 0 Ectopic pregnancies 0 AB induced 0 Hx Number of Living Children 0 AB spontaneous 1 Past Pregnancies Del. Date GA/Weeks # Preg Succ Route Wgt Sex Labor [facility] Delivery Date: 05/12/19 Last Updated by: Saira Alberto CNM pos. PT and bleeding soon after DS: Data Vitals/I&O Vitals and I&O: Vital Signs Temperature 97.5 F L 09/27/22 16:15 Temperature Source Oral 09/27/22 16:15 Pulse 65 09/27/22 16:15 Pulse Rhythm Regular 09/27/22 20:07 Respiratory Rate 16 09/27/22 16:15 Respiratory Depth Normal 09/27/22 20:07 Blood Pressure 123/86 09/27/22 16:15 Blood Pressure Mean 98 09/27/22 16:15 Pulse Oximetry 98 09/27/22 16:15 Oxygen Delivery Method Room Air 09/25/22 05:41 Oxygen Flow Rate 0 09/25/22 05:41 Pain Level 5 09/28/22 04:07
== END 2022-09-28 11:20 | disposition home or self-care (01) | DRG 806 ==
PROVIDERS: Admitting Provider Advanced Practice Midwife; PCP Nurse Practitioner Family; Visit Provider Advanced Practice Midwife
DX: O99.284 Endocrine, nutritional and metabolic diseases complicating childbirth (principal); O98.82 Other maternal infectious and parasitic diseases complicating childbirth; Z37.0 Single live birth; E03.9 Hypothyroidism, unspecified; O63.1 Prolonged second stage (of labor); Z3A.38 38 weeks gestation of pregnancy; G43.909 Migraine, unspecified, not intractable, without status migrainosus; E66.9 Obesity, unspecified; O99.214 Obesity complicating childbirth; O99.354 Diseases of the nervous system complicating childbirth; K04.7 Periapical abscess without sinus; O71.82 Other specified trauma to perineum and vulva; O70.0 First degree perineal laceration during delivery
CPT/HCPCS: 36415; 85027; 86850; 86900; 86901; 87635; J1050; J3010; J3490

== ENCOUNTER 2022-10-27 19:49 | Emergency (ER) | payer MEDICAID, SELFPAY ==
[2022-10-27 19:52] VITALS: BP 131/61; PULSE 91; RESP 18; TEMP 36.6; O2SAT 100
--- NOTE | 2022-10-27 20:00 | DI.CT_ITS ---
Exam(s) CT ABDOMEN PELVIS W EXAM: CT ABDOMEN PELVIS W CLINICAL HISTORY: Lower abd pain, 1 month postpartem TECHNIQUE: Imaging Protocol: Axial computed tomography images with coronal and sagittal reformatted images were created and reviewed CONTRAST MATERIAL: Intravenous: Omnipaque 350 Contrast volume:100 mL Oral: No COMPARISON: No exams were available for comparison FINDINGS: ABDOMEN: Lung Bases: Normal where visualized. Liver: Normal density. No measurable mass. Portal, Superior Mesenteric, and Splenic Veins: Unremarkable. Gallbladder and Biliary Tract: No radiodense calculus or dilation. Pancreas: Normal density, no abnormal calcifications or inflammatory process. Spleen: Normal. Adrenals: No masses seen. Kidneys: Normal size, contour and axis. No radiodense stones or obstructive uropathy. No masses seen. Abdominal Aorta: Abdominal portion non-dilated. Bowel: No evidence of bowel obstruction. There is mild thickening of the wall of the distal colon an d proximal descending colon. This may be due to underdistention. There is a question of mild strand ing around the transverse colon. This may represent a colitis. Appendix is unremarkable. Peritoneal Cavity: No ascites, collection or mesenteric inflammatory response. No free air. Lymph Nodes: Non-specific mildly prominent mesenteric lymph nodes are present. Bones: Within normal limits for the patient's age. Soft Tissues: Unremarkable. PELVIS: Bladder: Symmetric distention, no gross wall thickening. Reproductive Organs: Unremarkable as visualized. Lymph Nodes: Within normal limits. Bones: Within normal limits for the patient's age. IMPRESSION: 1. Mild wall thickening seen in portions of the colon. There is a question of mild stranding around the transverse colon. This may represent a mild colitis. Please correlate clinically. 2. No acute pulmonary process is seen in the lung bases. RADIATION DOSE DELIVERED: 1,198.27mGy.cm Total DLP DATA REPOSITORY: All CT scans at this facility are submitted to the National Radiology Data Registry (NRDR) Dose Index Registry (DIR) with the [employer] (A[employer]). RADIATION OPTIMIZATION: All CT scans at this facility use at least one of these dose optimization te chniques: automated exposure control; mA and/or kV adjustment per patient size (includes targeted exa ms where dose is matched to clinical indication); or iterative reconstruction.
--- NOTE | 2022-10-27 20:10 | ED.GENADUL_ITS ---
Discharge Plan Disposition Patient Disposition: Home Condition: Stable Discharge Details Clinical Impression: UTI (urinary tract infection) following delivery, Colitis Primary Care Provider: Inga Prince ED Provider: Margarette Fleming Home Meds and New Rx's Prescriptions: New ciprofloxacin HCl [Cipro] 500 mg tablet 500 mg PO BID 5 Days Qty: 10 0RF Rx Instructions: Take 1 tablet by mouth twice daily for the next 5 days No Action fluticasone propionate 50 mcg/actuation spray,suspension 1 spray intranasal BID Qty: 16 1RF Rx Instructions: administer into each nostril prenat.vits,omero,[id number] Tablet 1 tab PO DAILY famotidine [Pepcid] 20 mg tablet 20 mg PO DAILY Qty: 30 4RF varicella virus vacc live (PF) 1,350 unit/0.5 mL suspension for reconstitution 0.5 ml subcut ONCE Qty: 1 0RF Rx Instructions: as a single dose levothyroxine 50 mcg tablet See Rx Instructions .ROUTE .COMPLEX Qty: 90 0RF Dose Instruction: TAKE ONE TABLET BY MOUTH ONCE DAILY Rx Instructions: TAKE ONE TABLET BY MOUTH ONCE DAILY acetaminophen 325 mg Tablet 650 mg PO Q4H PRN PRNQty: 90 0RF docusate sodium [Colace] 100 mg Capsule 100 mg PO BID PRN PRNQty: 90 0RF ibuprofen 600 mg Tablet 600 mg PO Q6H PRN PRNQty: 90 0RF Discharge Instructions Instructions: Urinary Tract Infection in Women (ED), Colitis (ED) Additional Instructions: CT shows that you have some inflammation around your bowel which could be an indicator of colitis. This could be from an infection. You also have a urinary tract infection. We are getting give you the antibiotics ciprofloxacin twice daily for the next 7 days. You are given the first dose here. Please take the antibiotic with yogurt or a probiotic daily. Please be advised that this medication can transfer into the breastmilk so please be aware that. Consider pumping and discarding the breastmilk during treatment in an additional 2 days after finishing the antibiotic after the last dose. Stay away from anything spicy, fried fatty. Follow up with primary care provider in 3-5 days. Return to ED sooner if any worsening or concerns. Increase oral fluids. Referrals: Inga Prince, DEMETRA [Primary Care Provider] - 3 days Medical Decision Making 21-year-old female presents to the ER with a chief complaint of bilateral lower abdominal cramping and change in bowel movements since yesterday. Patient is 1 month vaginal delivery without complication. She reports that she does have some vaginal spotting since the delivery. She is currently breast- feeding by way of pumping. She denies any fever chills or vomiting. She reports that the pain starts approximately 30 minutes after eating and intensifies. She also reports some pressure and difficulty having bowel movements. She does have a past medical history of ADHD, hypothyroidism, migraine. No history of significant abdominal surgeries. CBC shows slight leukocytosis with a white blood cell count of 15, neutrophils 1.29, CMP largely within normal limits, alk phos is slightly elevated at 120, urinalysis shows small leukocytes 10-20 WBCs. Culture is pending at this time. CT shows wall thickening of the transverse colon and portions of the sigmoid colon and some stranding of the fat consistent with colitis. Due to possibly U TI and possible infectious colitis will place patient on antibiotics. Patient is breast-feeding. Given prescription for ciprofloxacin and encouraged to pump and dump while taking this. Discussed follow-up with primary care they verbalized understanding. This text was generated using [employer] dictation system, please disregard any oddities of phrase or misspellings. Imaging Data Radiologic Study: Imaging: CT Scan Radiologist's impression: IMPRESSION: 1. There is diffuse wall prominence of the transverse colon, descending colon, and portions of the sigmoid colon. There is some stranding of the pericolonic fat along the distal transverse/proximal descending colon. Findings are most consistent with colitis (infectious, inflammatory, or ischemic). Clinical correlation recommended. A GI consult may be beneficial. 2. Hepatosplenomegaly. Clinical correlation recommended. 3. Wall prominence to the distal esophagus which should be correlated with any concern for esophagitis. Heterogeneous contents to the stomach, favored to be related to ingested products. However, correlation with any concern for blood products is suggested. Other findings/details as above. Thank you for allowing us to participate in the care of your patient. Dictated and Authenticated by: Johanna Hodges MD Lab Data Lab results reviewed: Yes I reviewed the patient's lab results. Labs: 10/27/22 20:19 Urine - Reflex from Ua Urine Culture - Pending Laboratory Tests Range/Units 10/27/22 10/27/22 10/27/22 20:12 20:12 20:19 WBC (4.4-10.8) 10^3/uL 15.10 H RBC (3.93-5.22) 10^6/uL 4.56 Hgb (11.2-15.7) g/dL 12.0 Hct (36.0-46.0) % 37.7 MCV (80-95) fL 83 MCH (27.0-33.0) pg 26.3 L MCHC (32.0-36.0) % 31.8 L RDW (11.7-14.6) % 14.3 Plt Count (130-400) 10^3/uL 360 MPV (8.0-11.0) fL 8.8 Immature Gran % 0.3 Neutrophils % 74.8 Lymphocytes % 17.8 Monocytes % 3.8 Eosinophils % 2.9 Basophils % 0.4 Nucleated RBC % (0.0-0.3) % 0.0 Absolute Neutrophils (1.2-6.7) 10^3/uL 11.29 H Absolute Lymphocytes (1.2-3.4) 10^3/uL 2.69 Absolute Monocytes (0.1-0.8) 10^3/uL 0.57 Absolute Eosinophils (0.0-0.7) 10^3/uL 0.44 Absolute Basophils (0.0-0.2) 10^3/uL 0.06 Sodium (136-145) mmol/L 138 Potassium (3.5-5.1) mmol/L 4.0 Chloride (98-107) mmol/L 105 Carbon Dioxide (21.0-32.0) mmol/L 25.3 Anion Gap (3-11) mmol/L 7.7 BUN (7-18) mg/dL 14 Creatinine (0.55-1.02) mg/dL 0.9 Est GFR (CKD-EPI 2020) (mL/min/1.73m2) 92.12 Glucose (74-106) mg/dL 96 Calcium (8.5-10.1) mg/dL 9.2 Magnesium (1.8-2.4) mg/dL 1.9 Total Bilirubin (0.2-1.0) mg/dL 0.2 AST (15-37) U/L 19 ALT (14-59) U/L 38 Alkaline Phosphatase (46-116) U/L 120 H Total Protein (6.4-8.2) g/dL 7.5 Albumin (3.4-5.0) g/dL 3.5 Lipase (16-77) U/L 75 Urine Color (Yellow) Yellow Urine Clarity (Clear) Sl Cloudy Urine pH (5-8) 7.0 Ur Specific [place] (1.005-1.025) 1.025 Urine Protein (Negative) mg/dL Negative Urine Ketones (Negative) mg/dL Negative Urine Blood (Negative) Trace-intact H Urine Nitrite (Negative) Negative Urine Bilirubin (Negative) Negative Urine Urobilinogen (Up to 0.2) mg/dL 0.2 Ur Leukocyte Esterase (Negative) Small H Urine RBC (0-2) HPF 0-2 Urine WBC (0-5) HPF 10-20 H Ur Epithelial Cells (Negative) HPF Few Urine Crystals (Negative) HPF Negative Urine Bacteria (Negative) HPF Few Urine Casts (Negative) LPF Negative Urine Mucus (Negative) Negative Ur Culture Indicated? Yes Urine Glucose (Negative) mg/dL Negative HPI General Mode of arrival: ambulatory . Date/Time Provider Initiated Documentation: 10/27/22 20:02 . Limitations to Documentation: no limitations . Information obtained by: patient, RN notes reviewed and old records reviewed . HPI Narrative: 21-year-old female presents to the ER with a chief complaint of bilateral lower abdominal cramping and change in bowel movements since yesterday. Patient is 1 month vaginal delivery without complication. She reports that she does have some vaginal spotting since the delivery. She is currently breast- feeding by way of pumping. She denies any fever chills or vomiting. She reports that the pain starts approximately 30 minutes after eating and intensifies. She also reports some pressure and difficulty having bowel movements. She does have a past medical history of ADHD, hypothyroidism, migraine. No history of significant abdominal surgeries. Related Data Home Medications Medication Instructions Recorded Confirmed fluticasone propionate 50 1 spray intranasal BID #16 grams 09/28/21 10/27/22 mcg/actuation nasal spray,suspension prenat.vits,omero,[id number] 1 tab PO DAILY 03/04/22 10/27/22 levothyroxine 50 mcg tablet See Rx Instructions .Route 09/24/22 10/27/22 .COMPLEX #90 tabs acetaminophen 325 mg tablet 650 mg PO Q4H PRN PRN #90 tabs 09/28/22 10/27/22 docusate sodium 100 mg capsule 100 mg PO BID PRN PRN #90 caps 09/28/22 10/27/22 (Colace) ibuprofen 600 mg tablet 600 mg PO Q6H PRN PRN #90 tabs 09/28/22 10/27/22 famotidine 20 mg tablet (Pepcid) 20 mg PO DAILY #30 tabs 10/17/22 10/27/22 varicella virus vacc live (PF) 0.5 ml subcut ONCE #1 ea 10/17/22 10/27/22 1,350 unit/0.5 mL subcutaneous susp ciprofloxacin HCl 500 mg tablet 500 mg PO BID Colitis 5 days #10 10/27/22 (Cipro) tabs Previous Rx's Medication Instructions Recorded fluticasone propionate 50 1 spray intranasal BID #16 grams 09/28/21 mcg/actuation nasal spray,suspension levothyroxine 50 mcg tablet See Rx Instructions .Route 09/24/22 .COMPLEX #90 tabs acetaminophen 325 mg tablet 650 mg PO Q4H PRN PRN #90 tabs 09/28/22 docusate sodium 100 mg capsule 100 mg PO BID PRN PRN #90 caps 09/28/22 (Colace) ibuprofen 600 mg tablet 600 mg PO Q6H PRN PRN #90 tabs 09/28/22 famotidine 20 mg tablet (Pepcid) 20 mg PO DAILY #30 tabs 10/17/22 varicella virus vacc live (PF) 0.5 ml subcut ONCE #1 ea 10/17/22 1,350 unit/0.5 mL subcutaneous susp ciprofloxacin HCl 500 mg tablet 500 mg PO BID Colitis 5 days #10 10/27/22 (Cipro) tabs Allergies Allergy/AdvReac Type Severity Reaction Status Date / Time amoxicillin Allergy Intermediate skin rash Verified 10/27/22 19:58 Penicillins Allergy Intermediate Skin Rash Verified 10/27/22 19:58 clindamycin Allergy Mild Skin Rash Verified 10/27/22 19:58 General Stated Complaint: Abd Prob SAI: 3 Review of Systems All systems reviewed & are unremarkable except as noted in HPI and below Gastrointestinal Gastrointestinal: Reports abdominal pain, Reports change in bowel habits, Reports change in stool character, Reports cramping, Denies nausea and Denies vomiting PFSH All Active Problems (Updated 10/27/22 @ 21:40 by Margarette Fleming NP) UTI (urinary tract infection) following delivery (Acute) Colitis (Acute) Lactating mother (Acute) care following vaginal delivery (Acute) COVID-19 (Acute ~04/29/22) Maternal varicella, non-immune (Acute) BMI 37.0-37.9, adult (Acute) (Acute) Obesity (Chronic) Medical History Acute left ankle pain Acute pain of left shoulder ADHD (attention deficit hyperactivity disorder) no medications after age 15 Chlamydia infection Rx sent to [facility] 04/16/21 Concussion Mild - one day of headache and being tired Elevated TSH First trimester bleeding High BMI BMI 43 Hypothyroid in , antepartum Irregular periods/menstrual cycles Migraine headache without aura resolved 2017 Muscle spasm Normal labor Pain, dental Pelvic pain Prolonged second stage (of labor) SAB (spontaneous ) 2018 and 2020 Uterine contractions Vaginal discharge Surgical History H/O wisdom tooth extraction Family History Mother Bipolar 1 disorder, depressed Father , 45 Anxiety Depression Heart disease Myocardial infarction at age 45 Maternal Grandfather , in his late 70s Alzheimer's dementia Maternal Grandmother , at 69 of lung cancer Lung cancer Paternal Grandfather Type 2 diabetes mellitus Asthma Heart disease Cancer Paternal Grandmother Hyperlipidemia Hypertension Thyroid disease Social History Smoking/Tobacco Use Status: Never Second Hand Exposure: Yes Smoking risk assessment performed?: Yes Alcohol Intake: never Drug use: Never Substance use type: does not use Caregiver/Support person: Yes Foster care: No Household members: other Details: Livs with Grandparents Housing: other Details: [place] with Grandparents 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 Pets and animals: Yes Pets and animals: cat(s) and dog(s) Sexually active: Yes Do you think of yourself as: straight/heterosexual Current gender identity: female What type of physical activity do you participate in: walking Seatbelt use: always Helmet use: Yes Drive intox or ride w/intox coach driver: No Firearms in home: Yes Firearms unloaded and locked: Yes Do you feel safe at home: Yes Do you feel safe in your relationship?: Yes Female Reproductive History Menstrual control method: pills History History 2 Para 1 Hx # Term Pregnancies 1 Multiple births 0 Hx # Pregnancies 0 Ectopic pregnancies 0 AB induced 0 Hx Number of Living Children 1 AB spontaneous 1 Past Pregnancies Del. Date GA/Weeks # Preg Succ Route Wgt Sex Labor Lgth Anesth esia Location Prov Complic 05/12/19 09/26/22 38 No Yes vaginal Male PARRIS Maldonado Delivery Date: 05/12/19 Last Updated by: Saira Alberto CNM pos. PT and bleeding soon after Delivery Date: 09/26/22 Last Updated by: SANTIAGO Mckee Exam Narrative Exam Narrative: Constitutional: Alert and oriented x3. Appears stated age. Normal body habitus. Head: Normocephalic, no trauma. Eyes: Pupils PERRL, Red reflex noted, EOM's intact. Eyelids symmetrical without lesions, discharge, or swelling. ENT: Bilateral TM's WNL, External ear normal to inspection, no mastoid TTP, swelling, or erythema, Nasal turbinates WNL, no nasal discharge. Normal dentition, Posterior pharynx WNL, no exudate. Chest: RRR, Normal S1, S2, distal pulses intact. Resp: Lungs clear to auscultation bilaterally, no wheezes, rales, or rhonchi. Abdomen: Soft, non-distended, Normoactive bowel sounds all 4 quads. Musculoskeletal: Normal gait, 5/5 strength to all four extremities. Skin: No suspicious rashes or lesions. Capillary refill less than 2 sec. Neurologic: Cranial nerves II-XII intact. Alert and oriented x 3. Motor: No deficits noted. Sensory: Intact bilaterally all 4 extremities. Reflexes: DTR's intact bilaterally.. Hematologic/Lymphatic: No ecchymosis, no lymphadenopathy. Course Vital Signs Vital signs: Vital Signs Temperature 36.6 C 10/27/22 19:52 Pulse 91 H 10/27/22 19:52 Respiratory Rate 18 10/27/22 19:52 Blood Pressure 131/61 10/27/22 19:52 Pulse Oximetry 100 10/27/22 19:52 Temperature 36.6 C 10/27/22 19:52 Temperature Source Oral 10/27/22 19:52 Pulse 91 H 10/27/22 19:52 Respiratory Rate 18 10/27/22 19:52 Respiratory Effort Normal 10/27/22 20:00 Blood Pressure 131/61 10/27/22 19:52 Blood Pressure Position Sitting 10/27/22 19:52 Pulse Oximetry 100 10/27/22 19:52 Oxygen Delivery Method Room Air 10/27/22 19:52 Oxygen Flow Rate 0 10/27/22 19:52 Pain Level 3 10/27/22 19:52
[2022-10-27 20:18] LABS: Abs Immature Grans 0.04 10^3/uL (0.0-0.06); Absolute Basophil Count 0.06 10^3/uL (0.0-0.2); Absolute Eosinophil Count 0.44 10^3/uL (0.0-0.7); Absolute Lymphocyte Count 2.69 10^3/uL (1.2-3.4); Absolute Neutrophil Count 11.29 10^3/uL (1.2-6.7); Basophils % 0.4; Eosinophils % 2.9; HCT 37.7 % (36.0-46.0); Immature Grans % 0.3; Lymphocytes % 17.8; MCH 26.3 pg (27.0-33.0); MCHC 31.8 % (32.0-36.0); MCV 83 fL (80-95); MPV 8.8 fL (8.0-11.0); Monocytes % 3.8; Neutrophils % 74.8; Platelet Count 360 10^3/uL (130-400); RBC 4.56 10^6/uL (3.93-5.22); RDW 14.3 % (11.7-14.6)
[2022-10-27 20:19] LABS: Absolute Monocyte Count 0.57 10^3/uL (0.1-0.8)
[2022-10-27 20:29] LABS: Bilirubin Negative (Negative); Blood Trace-intact (Negative); Clarity Sl Cloudy (Clear); Glucose Negative (Negative); Ketones Negative (Negative); Leukocyte Esterase Small (Negative); Nitrite Negative (Negative); Specific Gravity 1.025 (1.005-1.025); Urobilinogen 0.2 mg/dL (Up to 0.2)
[2022-10-27] MEDS: Omnipaque 350 MG/ML 100 ML BTL IJ (20:31)
[2022-10-27 20:34] LABS: ALT 38 U/L (14-59); AST 19 U/L (15-37); Albumin 3.5 g/dL (3.4-5.0); Alkaline Phosphatase 120 U/L (46-116); Anion Gap 7.7 mmol/L (3-11); BUN 14 mg/dL (7-18); Bilirubin, Total 0.2 mg/dL (0.2-1.0); CO2 25.3 mmol/L (21.0-32.0); CREATININE 0.9 mg/dL (0.55-1.02); Calcium 9.2 mg/dL (8.5-10.1); Chloride 105 mmol/L (98-107); Estimated GFR 92.12 (mL/min/1.73m2); Glucose 96 mg/dL (74-106); Lipase 75 U/L (16-77); Magnesium 1.9 mg/dL (1.8-2.4); Sodium 138 mmol/L (136-145); Total Protein 7.5 g/dL (6.4-8.2)
[2022-10-27] MEDS: Normal Saline - Diluent 50 ML VIAL IJ (20:35)
[2022-10-27 20:37] LABS: Epithelial Cells Few HPF (Negative); RBC 0-2 HPF (0-2)
[2022-10-27 20:38] LABS: Bacteria Few HPF (Negative); C & S Indicated? Yes; Casts Negative LPF (Negative); Crystals Negative HPF (Negative); Mucus Negative (Negative)
--- NOTE | 2022-10-27 21:28 | DI.VRAD_ITS ---
PROCEDURE INFORMATION: Exam: CT Abdomen And Pelvis With Contrast Exam date and time: 10/27/2022 8:32 PM Age: 21 years old Clinical indication: Abdominal pain; Localized; Patient HX: Lower abd pain, 1 month postpartem; Per PT: Frequent loose stools TECHNIQUE: Imaging protocol: Computed tomography of the abdomen and pelvis with contrast. COMPARISON: US OB 2-3 TRIMESTER 05/13/2022 1:44 PM FINDINGS: Mediastinal space: Wall prominence to the distal esophagus which should be correlated with any concern for esophagitis. Liver: Mild hepatomegaly with the liver measuring 16.2 cm cranio caudally. Gallbladder and bile ducts: Normal. No calcified stones. No ductal dilation. Pancreas: Normal. No ductal dilation. Spleen: Splenomegaly with the spleen measuring 15.9 cm. Adrenal glands: Normal. No mass. Kidneys and ureters: Normal. No hydronephrosis. Stomach and bowel: Heterogeneous contents to the stomach, favored to be related to ingested products. However, correlation with any concern for blood products is suggested. There is diffuse wall prominence of the transverse colon, descending colon, and portions of the sigmoid colon. There is some stranding of the pericolonic fat along the distal transverse/proximal descending colon. Findings are most consistent with colitis (infectious, inflammatory, or ischemic). Clinical correlation recommended. Appendix: No evidence of appendicitis. Intraperitoneal space: Unremarkable. No free air. No significant fluid collection. Vasculature: Unremarkable. No abdominal aortic aneurysm. Lymph nodes: Unremarkable. No enlarged lymph nodes. Urinary bladder: Unremarkable as visualized. Reproductive: Unremarkable as visualized. Bones/joints: Scattered sclerotic foci in the bones. In the absence of known malignancy, these most likely represent bone islands . No acute fracture. Soft tissues: Unremarkable. IMPRESSION: 1. There is diffuse wall prominence of the transverse colon, descending colon, and portions of the sigmoid colon. There is some stranding of the pericolonic fat along the distal transverse/proximal descending colon. Findings are most consistent with colitis (infectious, inflammatory, or ischemic). Clinical correlation recommended. A GI consult may be beneficial. 2. Hepatosplenomegaly. Clinical correlation recommended. 3. Wall prominence to the distal esophagus which should be correlated with any concern for esophagitis. Heterogeneous contents to the stomach, favored to be related to ingested products. However, correlation with any concern for blood products is suggested. Other findings/details as above. Dictated and Authenticated by: Johanna Hodges MD. Ordering:KACIE Pfeiffer MD
[2022-10-27] MEDS: Ciprofloxacin 500 MG TAB PO (21:46)
== END 2022-10-27 21:55 | disposition home or self-care (01) ==
PROVIDERS: Emergency Provider Registered Nurse Emergency; PCP Nurse Practitioner Family
DX: O86.20 Urinary tract infection following delivery, unspecified (principal); O90.89 Other complications of the puerperium, not elsewhere classified; K52.9 Noninfective gastroenteritis and colitis, unspecified; N93.9 Abnormal uterine and vaginal bleeding, unspecified; E03.9 Hypothyroidism, unspecified; D72.829 Elevated white blood cell count, unspecified; R74.8 Abnormal levels of other serum enzymes
CPT/HCPCS: 80053; 81025; 83690; 99285; 74177; 81003; 81015; 83735; 85025; 87086; 99284; J3490

== ENCOUNTER 2023-01-23 20:53 | Emergency (ER) | payer MEDICAID, SELFPAY ==
[2023-01-23 21:00] VITALS: BP 135/84; PULSE 116; RESP 20; TEMP 37.9; O2SAT 100
--- NOTE | 2023-01-23 21:22 | ED.GENADUL_ITS ---
Discharge Plan Disposition Patient Disposition: Home Condition: Stable Discharge Details Clinical Impression: Upper respiratory infection, viral Primary Care Provider: Inga Prince ED Provider: Wen Mccullough Home Meds and New Rx's Prescriptions: Continued fluticasone propionate 50 mcg/actuation spray,suspension 1 spray intranasal BID Qty: 16 1RF Rx Instructions: administer into each nostril Varivax (PF) 1,350 unit/0.5 mL suspension for reconstitution 0.5 ml subcut ONCE Qty: 1 0RF Rx Instructions: as a single dose levothyroxine 50 mcg tablet See Rx Instructions .ROUTE .COMPLEX Qty: 90 0RF Dose Instruction: TAKE ONE TABLET BY MOUTH ONCE DAILY Rx Instructions: TAKE ONE TABLET BY MOUTH ONCE DAILY diphenhydramine HCl [Benadryl] 25 mg capsule 25 mg PO BID PRN (Reason: sleep) Qty: 60 0RF medroxyprogesterone [Depo-Provera] 150 mg/mL syringe 150 mg IM Q12W Qty: 1 4RF Discharge Instructions Instructions: Upper Respiratory Infection (ED) Additional Instructions: Push fluids to stay well-hydrated drinking at least 6 to 8 glasses of fluid daily. Can alternate ibuprofen 600 mg 4 times daily with acetaminophen 650 mg in between doses if needed for fever management. Referrals: Inga Prince, LABORATORY ANIMAL CARETAKER [Primary Care Provider] - Medical Decision Making Well-appearing female presents with a 1 day history of viral-like's upper respiratory symptoms. She is nontoxic-appearing. She is able to take good oral intake she is oxygenating 100% on room air general is unremarkable she is slightly tachycardic at 116 but also with low-grade temp of 37.9. Based on her history and physical exam I do not think any further testing is warranted at thi s time. She is safe for discharge to home with symptom management. Medical Records Medical records reviewed: Yes I reviewed the patient's medical records. HPI General Mode of arrival: ambulatory . Date/Time Provider Initiated Documentation: 01/23/23 21:21 . Limitations to Documentation: no limitations . Information obtained by: patient . HPI Narrative: 22-year-old female patient no significant past medical history comes in with a 1 day history of upper respiratory symptoms including cough and runny nose. She denies sore throat has had low-grade temp is able to take oral intake Related Data Home Medications Medication Instructions Recorded Confirmed fluticasone propionate 50 1 spray intranasal BID #16 grams 09/28/21 12/26/22 mcg/actuation nasal spray,suspension levothyroxine 50 mcg tablet See Rx Instructions .Route 09/24/22 12/26/22 .COMPLEX #90 tabs diphenhydramine HCl 25 mg capsule 25 mg PO BID PRN sleep #60 caps 12/03/22 12/26/22 (Benadryl) medroxyprogesterone 150 mg/mL 150 mg IM Q12W #1 mL 12/18/22 12/26/22 intramuscular syringe (Depo-Provera) varicella virus vacc live (PF) 0.5 ml subcut ONCE #1 ea 12/26/22 12/26/22 1,350 unit/0.5 mL subcutaneous susp (Varivax (PF)) Previous Rx's Medication Instructions Recorded fluticasone propionate 50 1 spray intranasal BID #16 grams 09/28/21 mcg/actuation nasal spray,suspension levothyroxine 50 mcg tablet See Rx Instructions .Route 09/24/22 .COMPLEX #90 tabs diphenhydramine HCl 25 mg capsule 25 mg PO BID PRN sleep #60 caps 12/03/22 (Benadryl) medroxyprogesterone 150 mg/mL 150 mg IM Q12W #1 mL 12/18/22 intramuscular syringe (Depo-Provera) varicella virus vacc live (PF) 0.5 ml subcut ONCE #1 ea 12/26/22 1,350 unit/0.5 mL subcutaneous susp (Varivax (PF)) Allergies Allergy/AdvReac Type Severity Reaction Status Date / Time amoxicillin Allergy Intermediate skin rash Verified 12/26/22 08:18 Penicillins Allergy Intermediate Skin Rash Verified 12/26/22 08:18 clindamycin Allergy Mild Skin Rash Verified 12/26/22 08:18 General Stated Complaint: RespSymp SAI: 3 Review of Systems All systems reviewed & are unremarkable except as noted in HPI and below PFSH All Active Problems (Updated 01/23/23 @ 21:26 by Wen Mccullough NP) Upper respiratory infection, viral (Acute) Hypothyroid (Chronic) Depo-Provera contraceptive status (Acute) Maternal varicella, non-immune (Acute) BMI 37.0-37.9, adult (Acute) Obesity (Chronic) Medical History (Updated 01/23/23 @ 21:26 by Wen Mccullough NP) Acute left ankle pain Acute pain of left shoulder ADHD (attention deficit hyperactivity disorder) no medications after age 15 Concussion Mild - one day of headache and being tired Elevated TSH High BMI BMI 43 Irregular periods/menstrual cycles Lactating mother Migraine headache without aura resolved 2017 Muscle spasm Pain, dental Pelvic pain Surgical History H/O wisdom tooth extraction Family History Mother Bipolar 1 disorder, depressed Father , 45 Anxiety Depression Heart disease Myocardial infarction at age 45 Maternal Grandfather , in his late 70s Alzheimer's dementia Maternal Grandmother , at 69 of lung cancer Lung cancer Paternal Grandfather Type 2 diabetes mellitus Asthma Heart disease Cancer Paternal Grandmother Hyperlipidemia Hypertension Thyroid disease Social History Smoking/Tobacco Use Status: Never Second Hand Exposure: Yes Smoking risk assessment performed?: Yes Alcohol Intake: never Drug use: Never Substance use type: does not use Caregiver/Support person: Yes Foster care: No Household members: other Details: Livs with Grandparents Housing: other Details: [place] with Grandparents 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 Pets and animals: Yes Pets and animals: cat(s) and dog(s) Sexually active: Yes Do you think of yourself as: straight/heterosexual Current gender identity: female What type of physical activity do you participate in: walking Seatbelt use: always Helmet use: Yes Drive intox or ride w/intox owner operator tanker 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: No Firearms in home: Yes Firearms unloaded and locked: Yes Do you feel safe at home: Yes Do you feel safe in your relationship?: Yes Female Reproductive History Menstrual control method: pills History History 2 Para 1 Hx # Term Pregnancies 1 Multiple births 0 Hx # Pregnancies 0 Ectopic pregnancies 0 AB induced 0 Hx Number of Living Children 1 AB spontaneous 1 Past Pregnancies Del. Date GA/Weeks # Preg Succ Route Wgt Sex Labor Lgth Anesth esia Location [facility] 05/12/19 09/26/22 38 No Yes vaginal Male PARRIS Maldonado Delivery Date: 05/12/19 Last Updated by: Saiar Alberto CNM pos. PT and bleeding soon after Delivery Date: 09/26/22 Last Updated by: SANTIAGO Mckee Exam Const General: cooperative, healthy appearing, comfortable and no acute distress Nutritional Appearance: overweight Orientation: alert, awake and oriented x3 Other: Nontoxic-appearing well-perfused HENMT Head: normal to inspection, normocephalic and atraumatic Face and sinus: normal facial exam Mouth: oral mucosae normal Neck Neck: normal visual inspection Chest Chest: normal inspection of the chest Resp Effort & Inspection: normal respiratory effort Auscultation: clear to auscultation bilaterally, no rhonchi and no wheezes Cardio Rate: tachycardic Rhythm: regular rhythm GI Inspection: normal to inspection Skin General skin exam: no rashes or lesions noted Neuro General: patient alert, patient awake and patient oriented x3 Extrem General: normal to inspection, full ROM and no clubbing, cyanosis or edema Course Vital Signs Vital signs: Vital Signs Temperature 37.9 C H 01/23/23 21:00 Pulse 116 H 01/23/23 21:00 Respiratory Rate 20 01/23/23 21:00 Blood Pressure 135/84 01/23/23 21:00 Pulse Oximetry 100 01/23/23 21:00 Temperature 37.9 C H 01/23/23 21:00 Temperature Source Oral 01/23/23 21:00 Pulse 116 H 01/23/23 21:00 Respiratory Rate 20 01/23/23 21:00 Respiratory Effort Normal 01/23/23 21:15 Respiratory Depth Normal 01/23/23 21:15 Blood Pressure 135/84 01/23/23 21:00 Blood Pressure Position Sitting 01/23/23 21:00 Pulse Oximetry 100 01/23/23 21:00 Oxygen Delivery Method Room Air 01/23/23 21:00 Oxygen Flow Rate 0 01/23/23 21:00 Pain Level 0 01/23/23 21:00
== END 2023-01-23 21:53 | disposition home or self-care (01) ==
PROVIDERS: Emergency Provider Nurse Practitioner Acute Care; PCP Nurse Practitioner Family
DX: J06.9 Acute upper respiratory infection, unspecified (principal)
CPT/HCPCS: 99281; 99282

== ENCOUNTER 2023-04-25 07:46 | Emergency (ER) | payer MEDICAID, SELFPAY ==
[2023-04-25 08:03] VITALS: BP 117/83; PULSE 85; RESP 20; TEMP 36.5; O2SAT 98
--- NOTE | 2023-04-25 09:16 | DI.US_ITS ---
Exam(s) US ABDOMEN LIMITED EXAM: US ABDOMEN LIMITED CLINICAL HISTORY: RUQ abd Pain, Vomiting, eval gallbladder TECHNIQUE: Ultrasound abdomen performed using standard protocol. COMPARISON: US POCUS EXAM from 08/26/[address] ABDOMEN PELVIS W from 10/27/2022 FINDINGS: There is no ascites evident. LIVER: There are no hepatic lesions evident nor dilatation of intrahepatic ducts. GALLBLADDER/BILIARY: There are no gallstones. No gallbladder wall edema nor pericholecystic fluid. The common hepatic duct isnot dilated, measuring 4-5mm at the level of mae hepatis. PANCREAS: There is no evidence of pancreatic mass nor dilatation of the pancreatic duct. RIGHT KIDNEY:No evidence of solid mass, calculus, nor hydronephrosis. No cortical cysts evident. IMPRESSION: 1. No evidence of cholelithiasis nor dilatation of the biliary tree. 2. No other significant ultrasound findings in the right upper quadrant. 3. There is no ascites. This note that CT scan performed 10/27/2022 revealed a colitis pattern. DATA REPOSITORY:
--- NOTE | 2023-04-25 09:18 | ED.GENADUL_ITS ---
Discharge Plan Disposition Patient Disposition: Home Condition: Stable Discharge Details Clinical Impression: Colitis Primary Care Provider: Inga Prince ED Provider: Margarette Fleming Home Meds and New Rx's Prescriptions: Continued Varivax (PF) 1,350 unit/0.5 mL suspension for reconstitution 0.5 ml subcut ONCE Qty: 1 0RF Rx Instructions: as a single dose levothyroxine 50 mcg tablet See Rx Instructions .ROUTE .COMPLEX Qty: 90 0RF Dose Instruction: TAKE ONE TABLET BY MOUTH ONCE DAILY Rx Instructions: TAKE ONE TABLET BY MOUTH ONCE DAILY diphenhydramine HCl [Benadryl] 25 mg capsule 25 mg PO BID PRN (Reason: sleep) Qty: 60 0RF Xulane 150-35 mcg/24 hr patch weekly 1 patch transdermal Q7D Qty: 3 6RF Rx Instructions: apply once weekly for 3 weeks of a 4-week cycle Xulane 150-35 mcg/24 hr patch weekly 1 patch transdermal Q7D Qty: 3 6RF Rx Instructions: apply once weekly for 3 weeks of a 4-week cycle Discharge Instructions Instructions: Rectal Bleeding (ED), Colitis (ED) Additional Instructions: [place] diet for the next 2 to 3 days. Stay away from anything fried fatty spicy or dairy. Ultrasound shows normal gallbladder. You do have some inflammatory changes on your bowels that were on the previous CT from October. Please take Tylenol or Ibuprofen with food every 4-6 hours as needed for pain and swelling. Follow up with primary care provider in 3-5 days to discuss these results. Return to ED sooner if any worsening or concerns. Increase oral fluids. Use [id number] hemorrhoid cream as needed you may place that topically. You may also take Miralax or similar which you can get over the counter. Referrals: Inga Prince, [employer] L[employer]ANER [Primary Care Provider] - 3 days Discharge Data Discharge Date/Time-TO BE ENTERED AT DEPARTURE: 04/25/23 11:07 Discharge Physician: Margarette Fleming Medical Decision Making 22-year-old female presents to the ER with a chief complaint of right upper quadrant abdominal pain, vomiting and rectal bleeding which began this morning after a soft bowel movement. Patient reports that she had a couple episodes of bright red blood per rectum with stool. Upon arrival she has negative Hemoccult stool sample. She also endorses intermittent right upper quadrant abdominal pain for the last few days and vomiting this morning. She denies any fever or chills no significant past medical history other than she is 7 months prima she is not breast-feeding at this time. No significant surgeries. Other past medical history include hypothyroidism. Migraines, ADHD, obesity. Negative Hemoccult POC stool per bell staff, work-up ordered including CBC CMP mag lipase and ultrasound of upper abdomen. Differential diagnosis includes but not limited to gastroenteritis, cholecystitis, gallstones, GERD US ABdomen ordered to rule out cholecystitis. US reports no evidence of cholecystitis or any other acute abnormality. CT from October shows colitis pattern.Please see report. Instructed patient to follow up with PCP in 3-5 days, discted home care and strict return nstructions. Verbalized understanding. Lab Data Lab results reviewed: Yes I reviewed the patient's lab results. Labs: Laboratory Tests Range/Units 04/25/23 04/25/23 04/25/23 09:32 09:52 10:21 WBC (4.4-10.8) 10^3/uL 15.17 H RBC (3.93-5.22) 10^6/uL 4.74 Hgb (11.2-15.7) g/dL 12.6 Hct (36.0-46.0) % 39.0 MCV (80-95) fL 82 MCH (27.0-33.0) pg 26.6 L MCHC (32.0-36.0) % 32.3 RDW (11.7-14.6) % 14.9 H Plt Count (130-400) 10^3/uL 317 MPV (8.0-11.0) fL 8.7 Immature Gran % 0.3 Neutrophils % 83.6 Lymphocytes % 11.5 Monocytes % 2.1 Eosinophils % 2.1 Basophils % 0.4 Nucleated RBC % (0.0-0.3) % 0.0 Absolute Neutrophils (1.2-6.7) 10^3/uL 12.68 H Absolute Lymphocytes (1.2-3.4) 10^3/uL 1.74 Absolute Monocytes (0.1-0.8) 10^3/uL 0.32 Absolute Eosinophils (0.0-0.7) 10^3/uL 0.32 Absolute Basophils (0.0-0.2) 10^3/uL 0.06 ESR mm/hr 72 Sodium (136-145) mmol/L 136 Potassium (3.5-5.1) mmol/L 3.7 Chloride (98-107) mmol/L 104 Carbon Dioxide (21.0-32.0) mmol/L 24.3 Anion Gap (3-11) mmol/L 7.7 BUN (7-18) mg/dL 9 Creatinine (0.55-1.02) mg/dL 0.7 Est GFR (CKD-EPI 2020) (mL/min/1.73m2) 123.78 Glucose (74-106) mg/dL 94 Calcium (8.5-10.1) mg/dL 9.5 Magnesium (1.8-2.4) mg/dL 2.1 Total Bilirubin (0.2-1.0) mg/dL 0.4 AST (15-37) U/L 9 L ALT (14-59) U/L 14 Alkaline Phosphatase (46-116) U/L 113 C-Reactive Protein (0.0-0.3) mg/dL 8.14 H Total Protein (6.4-8.2) g/dL 7.9 Albumin (3.4-5.0) g/dL 3.4 Lipase (16-77) U/L 30 Urine Color (Yellow) Yellow Urine Clarity (Clear) Clear Urine pH (5-8) 7.0 Ur Specific [place] (1.005-1.025) 1.015 Urine Protein (Negative) mg/dL Negative Urine Ketones (Negative) mg/dL Negative Urine Blood (Negative) Negative Urine Nitrite (Negative) Negative Urine Bilirubin (Negative) Negative Urine Urobilinogen (Up to 0.2) mg/dL 0.2 Ur Leukocyte Esterase (Negative) Small H Urine RBC (0-2) HPF 0-2 Urine WBC (0-5) HPF 5-10 Ur Epithelial Cells (Negative) HPF Many Urine Crystals (Negative) HPF Negative Urine Bacteria (Negative) HPF Rare Urine Casts (Negative) LPF Negative Urine Mucus (Negative) Negative Ur Culture Indicated? No/Sq. Contamination Urine Glucose (Negative) mg/dL Negative Add-On Test Request DONE HPI General Mode of arrival: ambulatory . Date/Time Provider Initiated Documentation: 04/25/23 08:36 . Limitations to Documentation: no limitations . Information obtained by: patient, RN notes reviewed and old records reviewed . HPI Narrative: 22-year-old female presents to the ER with a chief complaint of right upper quadrant abdominal pain, vomiting and rectal bleeding which began this morning after a soft bowel movement. Patient reports that she had a couple episodes of bright red blood per rectum with stool. Upon arrival she has negative Hemoccult stool sample. She also endorses intermittent right upper quadrant abdominal pain for the last few days and vomiting this morning. She denies any fever or chills no significant past medical history other than she is 7 months prima she is not breast-feeding at this time. No significant surgeries. Other past medical history include hypothyroidism. Migraines, ADHD, obesity. Related Data Home Medications Medication Instructions Recorded Confirmed levothyroxine 50 mcg tablet See Rx Instructions .Route 09/24/22 04/25/23 .COMPLEX #90 tabs diphenhydramine HCl 25 mg capsule 25 mg PO BID PRN sleep #60 caps 12/03/22 04/25/23 (Benadryl) varicella virus vacc live (PF) 0.5 ml subcut ONCE #1 ea 12/26/22 04/25/23 1,350 unit/0.5 mL subcutaneous susp (Varivax (PF)) norelgestromin 150 mcg-e.estradiol 1 patch transdermal Q7D #3 ea 03/11/23 04/25/23 35 mcg/24 hr weekly transderm patch (Xulane) norelgestromin 150 mcg-e.estradiol 1 patch transdermal Q7D #3 ea 03/12/23 04/25/23 35 mcg/24 hr weekly transderm patch (Xulane) Previous Rx's Medication Instructions Recorded levothyroxine 50 mcg tablet See Rx Instructions .Route 09/24/22 .COMPLEX #90 tabs diphenhydramine HCl 25 mg capsule 25 mg PO BID PRN sleep #60 caps 12/03/22 (Benadryl) varicella virus vacc live (PF) 0.5 ml subcut ONCE #1 ea 12/26/22 1,350 unit/0.5 mL subcutaneous susp (Varivax (PF)) norelgestromin 150 mcg-e.estradiol 1 patch transdermal Q7D #3 ea 03/11/23 35 mcg/24 hr weekly transderm patch (Xulane) norelgestromin 150 mcg-e.estradiol 1 patch transdermal Q7D #3 ea 03/12/23 35 mcg/24 hr weekly transderm patch (Xulane) Allergies Allergy/AdvReac Type Severity Reaction Status Date / Time amoxicillin Allergy Intermediate skin rash Verified 04/25/23 08:25 Penicillins Allergy Intermediate Skin Rash Verified 04/25/23 08:25 clindamycin Allergy Mild Skin Rash Verified 04/25/23 08:25 General Stated Complaint: GI Bleed SAI: 3 Review of Systems All systems reviewed & are unremarkable except as noted in HPI and below PFSH All Active Problems (Updated 04/25/23 @ 10:46 by Margarette Fleming NP) Colitis (Acute) Hypothyroid (Chronic) Depo-Provera contraceptive status (Acute) Maternal varicella, non-immune (Acute) BMI 37.0-37.9, adult (Acute) Obesity (Chronic) Medical History (Updated 04/25/23 @ 10:46 by Margarette Fleming NP) Lactating mother Pain, dental Elevated TSH Pelvic pain Muscle spasm Concussion Mild - one day of headache and being tired Acute left ankle pain Acute pain of left shoulder High BMI BMI 43 Irregular periods/menstrual cycles Migraine headache without aura resolved 2017 ADHD (attention deficit hyperactivity disorder) no medications after age 15 Surgical History H/O wisdom tooth extraction Family History Mother Bipolar 1 disorder, depressed Father , 45 Anxiety Depression Heart disease Myocardial infarction at age 45 Maternal Grandfather , in his late 70s Alzheimer's dementia Maternal Grandmother , at 69 of lung cancer Lung cancer Paternal Grandfather Type 2 diabetes mellitus Asthma Heart disease Cancer Paternal Grandmother Hyperlipidemia Hypertension Thyroid disease Social History Smoking/Tobacco Use Status: Never Second Hand Exposure: Yes Smoking risk assessment performed?: Yes Alcohol Intake: never Drug use: Never Substance use type: does not use Caregiver/Support person: Yes Foster care: No Household members: other Details: Livs with Grandparents Housing: apartment 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 Pets and animals: Yes Pets and animals: cat(s) and dog(s) Sexually active: Yes Do you think of yourself as: straight/heterosexual Current gender identity: female What type of physical activity do you participate in: walking Seatbelt use: always Helmet use: Yes Drive intox or ride w/intox driver/merchandiser: No Firearms in home: Yes Firearms unloaded and locked: Yes Do you feel safe at home: Yes Do you feel safe in your relationship?: Yes Female Reproductive History Menstrual control method: pills History History 2 Para 1 Hx # Term Pregnancies 1 Multiple births 0 Hx # Pregnancies 0 Ectopic pregnancies 0 AB induced 0 Hx Number of Living Children 1 AB spontaneous 1 Past Pregnancies Del. Date GA/Weeks # Preg Succ Route Wgt Sex Labor Lgth Anesth esia Location Prov [facility] 05/12/19 09/26/22 38 No Yes vaginal Male PARRIS Maldonado Delivery Date: 05/12/19 Last Updated by: Saira Alberto CNM pos. PT and bleeding soon after Delivery Date: 09/26/22 Last Updated by: SANTIAGO Mckee Exam Narrative Exam Narrative: Constitutional: Alert and oriented x3. Appears stated age. Overweight body habitus. Head: Normocephalic, no trauma. Eyes: Pupils PERRL, Red reflex noted, EOM's intact. Eyelids symmetrical without lesions, discharge, or swelling. ENT: , External ear normal to inspection, no mastoid TTP, swelling, or erythema, no nasal discharge. Chest: RRR, Normal S1, S2, distal pulses intact. Resp: Lungs clear to auscultation bilaterally, no wheezes, rales, or rhonchi. Abdomen: Soft, non-distended, tender with palpation left upper quadrant right upper quadrant and midepigastrium. Positive Palma sign. Musculoskeletal: Normal gait, 5/5 strength to all four extremities. Skin: No suspicious rashes or lesions. Capillary refill less than 2 sec. Neurologic: Cranial nerves II-XII intact. Alert and oriented x 3. Motor: No deficits noted. Hematologic/Lymphatic: No ecchymosis, no lymphadenopathy. Course Vital Signs Vital signs: Vital Signs Temperature 36.5 C 04/25/23 08:03 Pulse 85 04/25/23 08:03 Respiratory Rate 20 04/25/23 08:03 Blood Pressure 117/83 04/25/23 08:03 Pulse Oximetry 98 10/20/23 08:03 Temperature 36.5 C 04/25/23 08:03 Temperature Source Skin 04/25/23 08:03 Pulse 85 04/25/23 08:03 Respiratory Rate 20 04/25/23 08:03 Respiratory Effort Normal 04/25/23 08:27 Blood Pressure 117/83 04/25/23 08:03 Blood Pressure Position Sitting 04/25/23 08:03 Pulse Oximetry 98 04/25/23 08:03 Oxygen Delivery Method Room Air 04/25/23 08:03 Oxygen Flow Rate 0 04/25/23 08:03 Pain Level 6 04/25/23 08:03 Lab/Test Results Lab/Test Results: 04/25/23 08:55 Stool Stool Occult Blood (KIET) - Pending
[2023-04-25] MEDS: Normal Saline 1,000 ML 1000 ML IV (09:36)
[2023-04-25] MEDS: Ondansetron 4 MG/2 ML VIAL IVP (09:38)
[2023-04-25 09:41] LABS: Abs Immature Grans 0.05 10^3/uL (0.0-0.06); Absolute Basophil Count 0.06 10^3/uL (0.0-0.2); Absolute Eosinophil Count 0.32 10^3/uL (0.0-0.7); Absolute Monocyte Count 0.32 10^3/uL (0.1-0.8); Basophils % 0.4; Eosinophils % 2.1; HGB 12.6 g/dL (11.2-15.7); Immature Grans % 0.3; Lymphocytes % 11.5; MCH 26.6 pg (27.0-33.0); MCHC 32.3 % (32.0-36.0); MCV 82 fL (80-95); MPV 8.7 fL (8.0-11.0); Monocytes % 2.1; Neutrophils % 83.6; Platelet Count 317 10^3/uL (130-400); RBC 4.74 10^6/uL (3.93-5.22); RDW 14.9 % (11.7-14.6); RDW-SD 45.2 fL; WBC 15.17 10^3/uL (4.4-10.8)
[2023-04-25 09:44] LABS: Absolute Lymphocyte Count 1.74 10^3/uL (1.2-3.4); Absolute Neutrophil Count 12.68 10^3/uL (1.2-6.7)
[2023-04-25 09:57] LABS: ALT 14 U/L (14-59); AST 9 U/L (15-37); Albumin 3.4 g/dL (3.4-5.0); Alkaline Phosphatase 113 U/L (46-116); Anion Gap 7.7 mmol/L (3-11); BUN 9 mg/dL (7-18); Bilirubin, Total 0.4 mg/dL (0.2-1.0); CO2 24.3 mmol/L (21.0-32.0); CREATININE 0.7 mg/dL (0.55-1.02); Calcium 9.5 mg/dL (8.5-10.1); Chloride 104 mmol/L (98-107); Estimated GFR 123.78 (mL/min/1.73m2); Glucose 94 mg/dL (74-106); Lipase 30 U/L (16-77); Magnesium 2.1 mg/dL (1.8-2.4); Potassium 3.7 mmol/L (3.5-5.1); Sodium 136 mmol/L (136-145); Total Protein 7.9 g/dL (6.4-8.2)
[2023-04-25 10:36] LABS: Bilirubin Negative (Negative); Blood Negative (Negative); Clarity Clear (Clear); Glucose Negative (Negative); Ketones Negative (Negative); Leukocyte Esterase Small (Negative); Nitrite Negative (Negative); Specific Gravity 1.015 (1.005-1.025); Urobilinogen 0.2 mg/dL (Up to 0.2)
[2023-04-25 10:46] LABS: Bacteria Rare HPF (Negative); C & S Indicated? No/Sq. Contamination; Casts Negative LPF (Negative); Crystals Negative HPF (Negative); Epithelial Cells Many HPF (Negative); Mucus Negative (Negative); RBC 0-2 HPF (0-2)
[2023-04-25 11:44] LABS: Lab Add On Test DONE
[2023-04-25 12:01] LABS: C-Reactive Protein 8.14 mg/dL (0.0-0.3)
[2023-04-25 17:43] LABS: ESR (LRH) 72 mm/hr
== END 2023-04-25 11:07 | disposition home or self-care (01) ==
PROVIDERS: Emergency Provider Registered Nurse Emergency; PCP Nurse Practitioner Family
DX: K52.9 Noninfective gastroenteritis and colitis, unspecified (principal); K62.5 Hemorrhage of anus and rectum
CPT/HCPCS: 80053; 81025; 83690; 85652; 96361; 96374; 99284; 76705; 81003; 81015; 82272; 83735; 85025; 86140; J2405

== ENCOUNTER 2023-07-26 11:37 | Emergency (ER) | payer MEDICAID, SELFPAY ==
[2023-07-26 11:41] VITALS: BP 135/71; PULSE 90; RESP 18; TEMP 36.5; O2SAT 96
--- NOTE | 2023-07-26 11:45 | DI.CT_ITS ---
Exam(s) CT HEAD WO EXAM: CT HEAD WO CLINICAL HISTORY: fall, posterior head pain. TECHNIQUE: Imaging Protocol: Axial computed tomography images with coronal and sagittal reformatted images were created and reviewed COMPARISON: No exams were available for comparison FINDINGS: Ventricles and Extra axial spaces: Normal in size and morphology for the patient's age. Hemorrhage: None. Cerebral parenchyma: No evidence of acute infarct or mass. Midline shift: None. Brainstem/Cerebellum: Normal. Calvarium: Normal. Visualized Paranasal sinuses/Mastoids: Mild mucosal thickening ethmoid sinuses. Mucosal retention cy st right maxillary sinus. Mucosal thickening left maxillary sinus. Soft Tissues: Unremarkable. IMPRESSION: No acute intracranial process. RADIATION DOSE DELIVERED: Total DLP DATA REPOSITORY: All CT scans at this facility are submitted to the National Radiology Data Registry (NRDR) Dose Index Registry (DIR) with the [employer] (A[employer]). RADIATION OPTIMIZATION: All CT scans at this facility use at least one of these dose optimization te chniques: automated exposure control; mA and/or kV adjustment per patient size (includes targeted exa ms where dose is matched to clinical indication); or iterative reconstruction.
--- NOTE | 2023-07-26 11:52 | W.ED.GENAD ---
HPI General Mode of arrival: ambulatory. Date/Time Provider Initiated Documentation: 07/26/23 11:38. Limitations to Documentation: no limitations. Information obtained by: patient. History of Present Illness 22 year old F presents to the emergency department with the chief complaint of head pain s/p fall, described as moderate, Quality is described as aching, Patient started experiencing this hour(s) (1) and it has been constant. No relieving factors improve symptom(s), No exacerbating factors reported . Patient notes other (nausea, no vomiting); denies chest pain and shortness of breath. Patient did receive the following treatments prior to arrival, none Related Data Home Medications Medication Instructions Recorded Confirmed levothyroxine 50 mcg tablet See Rx Instructions .Route 09/24/22 07/26/23 .COMPLEX #90 tabs diphenhydramine HCl 25 mg capsule 25 mg PO BID PRN sleep #60 caps 12/03/22 07/26/23 (Benadryl) norethindrone (contraceptive) 0.35 0.35 mg PO DAILY #84 tabs 05/15/23 07/26/23 mg tablet (Gwen-BE) ondansetron 4 mg disintegrating 4 mg PO Q8H PRN nausea and 07/26/23 tablet vomiting #30 tabs Previous Rx's Medication Instructions Recorded levothyroxine 50 mcg tablet See Rx Instructions .Route 09/24/22 .COMPLEX #90 tabs diphenhydramine HCl 25 mg capsule 25 mg PO BID PRN sleep #60 caps 12/03/22 (Benadryl) norethindrone (contraceptive) 0.35 0.35 mg PO DAILY #84 tabs 05/15/23 mg tablet (Gwen-BE) ondansetron 4 mg disintegrating 4 mg PO Q8H PRN nausea and 07/26/23 tablet vomiting #30 tabs Allergies Allergy/AdvReac Type Severity Reaction Status Date / Time amoxicillin Allergy Intermediate skin rash Verified 07/26/23 11:45 Penicillins Allergy Intermediate Skin Rash Verified 07/26/23 11:45 clindamycin Allergy Mild Skin Rash Verified 07/26/23 11:45 General Stated Complaint: HeadInjury SAI: 3 Review of Systems All systems reviewed & are unremarkable except as noted in HPI and below Constitutional Constitutional: Denies chills and Denies fever(s) Cardiovascular Cardiovascular: Denies chest pain and Denies dyspnea Respiratory Respiratory: Denies cough and Denies dyspnea Gastrointestinal Gastrointestinal: Denies abdominal pain and Denies vomiting Genitourinary Genitourinary: Denies dysuria Musculoskeletal Musculoskeletal: Denies joint swelling Integumentary/Breasts Skin/Breast: Denies rash Psychiatric Psychiatric: Denies depression Exam Const General: no acute distress Orientation: alert [facility] Head: normal to inspection, no palpable skull fracture and normocephalic Ears: external ears normal General nose exam: external nose normal Mouth: moist mucous membranes Eyes General: appearance normal, both eyes and all related structures Neck Neck: normal visual inspection, full ROM and nontender Resp Effort & Inspection: normal respiratory effort and able to speak in complete sentences Cardio Rate: regular rate Skin General skin exam: no rashes or lesions noted Neuro General: patient alert and patient oriented x3 Extrem General: normal to inspection Psych Mental Status: mental status grossly normal Course Vital Signs Vital signs: Vital Signs Temperature 36.5 C 07/26/23 11:41 Pulse 90 07/26/23 11:41 Respiratory Rate 18 07/26/23 11:41 Blood Pressure 135/71 07/26/23 11:41 Pulse Oximetry 96 07/26/23 11:41 Temperature 36.5 C 07/26/23 11:41 Temperature Source Temporal Artery Scan 07/26/23 11:41 Pulse 90 07/26/23 11:41 Respiratory Rate 18 07/26/23 11:41 Respiratory Effort Normal, Non-Labored 07/26/23 11:45 Blood Pressure 135/71 07/26/23 11:41 Blood Pressure Position Sitting 07/26/23 11:41 Pulse Oximetry 96 07/26/23 11:41 Oxygen Delivery Method Room Air 07/26/23 11:41 Oxygen Flow Rate 0 07/26/23 11:41 Medical Decision Making 22 yo female comes in after she fell and struck her head. She states she woke up feeling well and in the shower slipped on a soap bottle and fell back striking her posterior head on the floor, denies loc, no vomiting since though does have nausea. She denies any preceding symptoms to the fall. she is caox4 on arrival with normal gait, no signs of trauma to the head, no midline c spine tenderness with full rom of the neck, perrl, eomi. Given the fall and pain will proceed with ct head to evaluate for possible tbi ct negative, pt ambulating without assistance and has normal gait, feels well with no new pain and headache improved with tylenol. Stable for d/c,a dvised to follow up with pcp and return precautions given Differential Diagnosis Differential Diagnosis: concussion, tbi Medical Records Medical records reviewed: Yes I reviewed the patient's medical records. Imaging Data Radiologic Study: Attestation: I personally reviewed and interpreted this imaging study as follows: Imaging: CT Scan Radiologist's impression: no acute findings Quality:SDOH Health Related Social Needs: No Data to Display PFSH All Active Problems (Updated 07/26/23 @ 12:45 by Richard Deras MD) Blunt head trauma (Acute) Oral contraceptive use (Acute) Headache (Acute) Hypothyroid (Chronic) Maternal varicella, non-immune (Acute) BMI 37.0-37.9, adult (Acute) Obesity (Chronic) Medical History Depo-Provera contraceptive status Lactating mother Pain, dental Elevated TSH Pelvic pain Muscle spasm Concussion Mild - one day of headache and being tired Acute left ankle pain Acute pain of left shoulder High BMI BMI 43 Irregular periods/menstrual cycles Migraine headache without aura resolved 2017 ADHD (attention deficit hyperactivity disorder) no medications after age 15 Surgical History H/O wisdom tooth extraction Family History Mother Bipolar 1 disorder, depressed Father , 45 Anxiety Depression Heart disease Myocardial infarction at age 45 Maternal Grandfather , in his late 70s Alzheimer's dementia Maternal Grandmother , at 69 of lung cancer Lung cancer Paternal Grandfather Type 2 diabetes mellitus Asthma Heart disease Cancer Paternal Grandmother Hyperlipidemia Hypertension Thyroid disease Social History Smoking/Tobacco Use Status: Never Second Hand Exposure: Yes Smoking risk assessment performed?: Yes Alcohol Intake: never Drug use: Never Substance use type: does not use Caregiver/Support person: Yes Foster care: No Household members: other Details: Livs with Grandparents Housing: apartment 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 Pets and animals: Yes Pets and animals: cat(s) and dog(s) Sexually active: Yes Do you think of yourself as: straight/heterosexual Current gender identity: female What type of physical activity do you participate in: walking Seatbelt use: always Helmet use: Yes Drive intox or ride w/intox 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 Date GA/Weeks # Preg Succ Route Wgt Sex Labor Lgth Anesthesia Location Prov Complic 05/12/19 09/26/22 38 No Yes vaginal Male [facility] Delivery Date: 05/12/19 Last Updated by: Saira Alberto CNM pos. PT and bleeding soon after Delivery Date: 09/26/22 Last Updated by: SANTIAGO Mckee Discharge Plan Disposition Patient Disposition: Home Condition: Stable Discharge Details Clinical Impression: Blunt head trauma Primary Care Provider: Inga Prince ED Provider: Richard Deras Meds and New Rx's Prescriptions: New ondansetron 4 mg tablet,disintegrating 4 mg PO Q8H PRN (Reason: nausea and vomiting) Qty: 30 0RF Continued levothyroxine 50 mcg tablet See Rx Instructions .ROUTE .COMPLEX Qty: 90 0RF Dose Instruction: TAKE ONE TABLET BY MOUTH ONCE DAILY Rx Instructions: TAKE ONE TABLET BY MOUTH ONCE DAILY diphenhydramine HCl [Benadryl] 25 mg capsule 25 mg PO BID PRN (Reason: sleep) Qty: 60 0RF norethindrone (contraceptive) [Gwen-BE] 0.35 mg tablet 0.35 mg PO DAILY Qty: 84 3RF Discharge Instructions Additional Instructions: your cat scan did not show concerning findings if still having headaches or issues with memory this week follow up with your primary care provider if you feel more ill or have severe worsening pain or persistent vomiting return to the emergency department
[2023-07-26] MEDS: Ondansetron O.D.T. 4 MG TABEF PO (11:55)
[2023-07-26] MEDS: Acetaminophen 500 MG TAB 1000 MG PO (11:56)
--- NOTE | 2023-07-26 12:33 | DI.VRAD_ITS ---
PROCEDURE INFORMATION: Exam: CT Head Without Contrast Exam date and time: 07/26/2023 12:22 PM Age: 22 years old Clinical indication: Injury or trauma; Fall; Blunt trauma (contusions or hematomas) TECHNIQUE: Imaging protocol: Computed tomography of the head without contrast. COMPARISON: No relevant prior studies available. FINDINGS: Brain: Normal. No hemorrhage. Unremarkable white matter. No mass effect. Cerebral ventricles: No ventriculomegaly. Paranasal sinuses: There circumferential mucosal disease of bilateral maxillary sinuses. There is mild mucosal disease bilateral anterior ethmoid air cells. Mastoid air cells: Visualized mastoid air cells are well aerated. Bones/joints: Unremarkable. No acute fracture. Soft tissues: Unremarkable. IMPRESSION: No posttraumatic intracranial changes. Dictated and Authenticated by: Cesario Siddiqui MD. Ordering:JOHN Ramos MD
== END 2023-07-26 12:50 | disposition home or self-care (01) ==
PROVIDERS: Emergency Provider Emergency Medicine; PCP Nurse Practitioner Family
DX: R11.0 Nausea; S09.8XXA Other specified injuries of head, initial encounter; G44.309 Post-traumatic headache, unspecified, not intractable; W18.2XXA Fall in (into) shower or empty bathtub, initial encounter
CPT/HCPCS: 99284; 70450; 99283

== ENCOUNTER 2023-08-22 19:22 | Emergency (ER) | payer MEDICAID, SELFPAY ==
[2023-08-22 19:26] VITALS: BP 143/72; PULSE 94; RESP 16; TEMP 36.1; O2SAT 98
[2023-08-22 19:53] LABS: Bilirubin Negative (Negative); Blood Negative (Negative); Clarity Clear (Clear); Glucose Negative (Negative); Ketones Negative (Negative); Leukocyte Esterase Negative (Negative); Nitrite Negative (Negative); Specific Gravity >= 1.030 (1.005-1.025); Urobilinogen 0.2 mg/dL (Up to 0.2)
[2023-08-22 19:58] VITALS: BP 143/72; PULSE 94; RESP 16; TEMP 36.1; O2SAT 98
--- NOTE | 2023-08-22 20:04 | ED.GENADUL_ITS ---
HPI General Mode of arrival: ambulatory . Date/Time Provider Initiated Documentation: 08/22/23 19:36 . Limitations to Documentation: no limitations . Information obtained by: patient, RN notes reviewed and old records reviewed . HPI Narrative: 22 year old female presents to the ED with cc of dysuria and itching since Friday. Has taken multiple over the counter medications, with little to no relief. Denies any concern for STD, patient is sexually active and on Oral control pills. Reports nausea no vomiting diarrhea. Past medical history includes obesity, elevated TSH, ADHD and migraine headaches. She did take some Tylenol earlier this morning. Related Data Home Medications Medication Instructions Recorded Confirmed levothyroxine 50 mcg tablet See Rx Instructions .Route 09/24/22 08/22/23 .COMPLEX #90 tabs diphenhydramine HCl 25 mg capsule 25 mg PO BID PRN sleep #60 caps 12/03/22 08/22/23 (Benadryl) norethindrone (contraceptive) 0.35 0.35 mg PO DAILY #84 tabs 05/15/23 08/22/23 mg tablet (Gwen-BE) ondansetron 4 mg disintegrating 4 mg PO Q8H PRN nausea and 07/26/23 08/22/23 tablet vomiting #30 tabs metronidazole 0.75 % (37.5 mg/5 1 appful vaginal DAILY 5 days #70 08/22/23 gram) vaginal gel grams Previous Rx's Medication Instructions Recorded levothyroxine 50 mcg tablet See Rx Instructions .Route 09/24/22 .COMPLEX #90 tabs diphenhydramine HCl 25 mg capsule 25 mg PO BID PRN sleep #60 caps 12/03/22 (Benadryl) norethindrone (contraceptive) 0.35 0.35 mg PO DAILY #84 tabs 05/15/23 mg tablet (Gwen-BE) ondansetron 4 mg disintegrating 4 mg PO Q8H PRN nausea and 07/26/23 tablet vomiting #30 tabs metronidazole 0.75 % (37.5 mg/5 1 appful vaginal DAILY 5 days #70 08/22/23 gram) vaginal gel grams Allergies Allergy/AdvReac Type Severity Reaction Status Date / Time amoxicillin Allergy Intermediate skin rash Verified 08/22/23 19:32 Penicillins Allergy Intermediate Skin Rash Verified 08/22/23 19:32 clindamycin Allergy Mild Skin Rash Verified 08/22/23 19:32 General Stated Complaint: Urinary SAI: 3 Review of Systems All systems reviewed & are unremarkable except as noted in HPI and below Genitourinary Genitourinary: Reports as per HPI, Reports dysuria and Reports pelvic pain Exam Narrative Exam Narrative: Constitutional: Alert and oriented x3. Appears stated age. Obese body habitus. Head: Normocephalic, no trauma. Chest: RRR, Normal S1, S2, distal pulses intact. Resp: Lungs clear to auscultation bilaterally, no wheezes, rales, or rhonchi. Abdomen: Soft, non-distended, Normoactive bowel sounds all 4 quads. Musculoskeletal: Normal gait, 5/5 strength to all four extremities. Skin: No suspicious rashes or lesions. Capillary refill less than 2 sec. Course Vital Signs Vital signs: Vital Signs Temperature 36.1 C L 08/22/23 19:26 Pulse 94 H 08/22/23 19:26 Respiratory Rate 16 08/22/23 19:26 Blood Pressure 143/72 H 08/22/23 19:26 Pulse Oximetry 98 08/22/23 19:26 Temperature 36.1 C L 08/22/23 19:58 Temperature Source Skin 08/22/23 19:58 Pulse 94 H 08/22/23 19:58 Respiratory Rate 16 08/22/23 19:58 Respiratory Effort Normal 08/22/23 19:58 Blood Pressure 143/72 H 08/22/23 19:58 Blood Pressure Position Sitting 08/22/23 19:58 Pulse Oximetry 98 08/22/23 19:58 Oxygen Delivery Method Room Air 08/22/23 19:58 Oxygen Flow Rate 0 08/22/23 19:26 Pain Level 3 08/22/23 19:58 Lab/Test Results Lab/Test Results: Laboratory Tests Range/Units 08/22/23 19:40 Urine Color (Yellow) Yellow Urine Clarity (Clear) Clear Urine pH (5-8) 6.0 Ur Specific [place] (1.005-1.025) >= 1.030 H Urine Protein (Neg-Trace) mg/dL 30 H Urine Ketones (Negative) mg/dL Negative Urine Blood (Negative) Negative Urine Nitrite (Negative) Negative Urine Bilirubin (Negative) Negative Urine Urobilinogen (Up to 0.2) mg/dL 0.2 Ur Leukocyte Esterase (Negative) Negative Urine Glucose (Negative) mg/dL Negative Medical Decision Making 22 year old female presents to the ED with cc of dysuria and itching since Fri day. Has taken multiple over the counter medications, with little to no relief. Denies any concern for STD, patient is sexually active and on Oral control pills. Reports nausea no vomiting diarrhea. Past medical history includes obesity, elevated TSH, ADHD and migraine headaches. She did take some Tylenol earlier this morning. Urinalysis shows no leukocytes no nitrites. Slightly concentrated with specific gravity greater than 1030, 30 protein. Instructed to follow-up with PCP, given a prescription for MetroGel vaginal gel for possible yeast infection. She verbalized understanding. This text was generated using [employer] system, please disregard any oddities of phrase or misspellings. Lab Data Lab results reviewed: Yes I reviewed the patient's lab results. Labs: Laboratory Tests Range/Units 08/22/23 19:40 Urine Color (Yellow) Yellow Urine Clarity (Clear) Clear Urine pH (5-8) 6.0 Ur Specific [place] (1.005-1.025) >= 1.030 H Urine Protein (Neg-Trace) mg/dL 30 H Urine Ketones (Negative) mg/dL Negative Urine Blood (Negative) Negative Urine Nitrite (Negative) Negative Urine Bilirubin (Negative) Negative Urine Urobilinogen (Up to 0.2) mg/dL 0.2 Ur Leukocyte Esterase (Negative) Negative Urine RBC (0-2) HPF Negative Urine WBC (0-5) HPF 0-2 Ur Epithelial Cells (Negative) HPF Few Urine Crystals (Negative) HPF Negative Urine Bacteria (Negative) HPF Negative Urine Mucus (Negative) Heavy Urine Other (Negative) Negative Ur Culture Indicated? No Urine Glucose (Negative) mg/dL Negative Quality:SDOH Health Related Social Needs: No Data to Display PFSH All Active Problems (Updated 08/22/23 @ 20:13 by Margarette Fleming NP) Dysuria (Acute) Blunt head trauma (Acute) Oral contraceptive use (Acute) Headache (Acute) Hypothyroid (Chronic) Maternal varicella, non-immune (Acute) BMI 37.0-37.9, adult (Acute) Obesity (Chronic) Medical History Depo-Provera contraceptive status Lactating mother Pain, dental Elevated TSH Pelvic pain Muscle spasm Concussion Mild - one day of headache and being tired Acute left ankle pain Acute pain of left shoulder High BMI BMI 43 Irregular periods/menstrual cycles Migraine headache without aura resolved 2017 ADHD (attention deficit hyperactivity disorder) no medications after age 15 Surgical History H/O wisdom tooth extraction Family History Mother Bipolar 1 disorder, depressed Father , 45 Anxiety Depression Heart disease Myocardial infarction at age 45 Maternal Grandfather , in his late 70s Alzheimer's dementia Maternal Grandmother , at 69 of lung cancer Lung cancer Paternal Grandfather Type 2 diabetes mellitus Asthma Heart disease Cancer Paternal Grandmother Hyperlipidemia Hypertension Thyroid disease Social History Smoking/Tobacco Use Status: Never Second Hand Exposure: Yes Smoking risk assessment performed?: Yes Alcohol Intake: never Drug use: Never Substance use type: does not use Caregiver/Support person: Yes Foster care: No Household members: other Details: Livs with Grandparents Housing: apartment 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 Pets and animals: Yes Pets and animals: cat(s) and dog(s) Sexually active: Yes Do you think of yourself as: straight/heterosexual Current gender identity: female What type of physical activity do you participate in: walking Seatbelt use: always Helmet use: Yes Drive intox or ride w/intox racing car driver: No Firearms in home: Yes Firearms unloaded and locked: Yes Do you feel safe at home: Yes Do you feel safe in your relationship?: Yes Female Reproductive History Menstrual control method: pills History History 2 Para 1 Hx # Term Pregnancies 1 Multiple births 0 Hx # Pregnancies 0 Ectopic pregnancies 0 AB induced 0 Hx Number of Living Children 1 AB spontaneous 1 Past Pregnancies Del. Date GA/Weeks # Preg Succ Route Wgt Sex Labor Lgth Anesth esia Location [facility] 05/12/19 09/26/22 38 No Yes vaginal Male [facility] Delivery Date: 05/12/19 Last Updated by: Saira Alberto CNM pos. PT and bleeding soon after Delivery Date: 09/26/22 Last Updated by: SANTIAGO Mckee Discharge Plan Disposition Patient Disposition: Home Condition: Stable Discharge Details Clinical Impression: Dysuria Primary Care Provider: Inga Prince ED Provider: Margarette Fleming Home Meds and New Rx's Prescriptions: New metronidazole 0.75 % (37.5mg/5 gram) gel 1 appful vaginal DAILY 5 Days Qty: 70 0RF Rx Instructions: 1 application daily x 5 days as directed. No Action levothyroxine 50 mcg tablet See Rx Instructions .ROUTE .COMPLEX Qty: 90 0RF Dose Instruction: TAKE ONE TABLET BY MOUTH ONCE DAILY Rx Instructions: TAKE ONE TABLET BY MOUTH ONCE DAILY diphenhydramine HCl [Benadryl] 25 mg capsule 25 mg PO BID PRN (Reason: sleep) Qty: 60 0RF norethindrone (contraceptive) [Gwen-BE] 0.35 mg tablet 0.35 mg PO DAILY Qty: 84 3RF ondansetron 4 mg tablet,disintegrating 4 mg PO Q8H PRN (Reason: nausea and vomiting) Qty: 30 0RF Discharge Instructions Instructions: Dysuria (ED) Additional Instructions: Please take the medication as directed. Please follow-up with your PCP for any worsening. No evidence of urinary tract infection today. Follow up with primary care provider in 3-5 days. Return to ED sooner if any worsening or concerns. Increase oral fluids. Please take Tylenol or Ibuprofen with food every 4-6 hours as needed for pain and swelling. Referrals: Inga Prince, PLANNING ASSISTANT [Primary Care Provider] - 3 days
[2023-08-22 20:08] LABS: Bacteria Negative HPF (Negative); Crystals Negative HPF (Negative); Epithelial Cells Few HPF (Negative); Mucus Heavy (Negative); Other Cells Negative (Negative); RBC Negative HPF (0-2); WBC 0-2 HPF (0-5)
[2023-08-22 20:09] LABS: C & S Indicated? No
== END 2023-08-22 20:23 | disposition home or self-care (01) ==
PROVIDERS: Emergency Provider Registered Nurse Emergency; PCP Nurse Practitioner Family
DX: R30.0 Dysuria (principal); R10.9 Unspecified abdominal pain; R11.0 Nausea
CPT/HCPCS: 99283; 81003; 81015

== ENCOUNTER 2023-09-04 18:37 | Emergency (ER) | payer MEDICAID, SELFPAY ==
--- NOTE | 2023-09-04 18:39 | W.ED.GENAD ---
Discharge Plan Disposition Patient Disposition: Home Discharge Details Clinical Impression: Nausea and vomiting Primary Care Provider: Inga Prince ED Provider: Hugh Palomino Home Meds and New Rx's Prescriptions: Continued levothyroxine 50 mcg tablet See Rx Instructions .ROUTE .COMPLEX Qty: 90 0RF Dose Instruction: TAKE ONE TABLET BY MOUTH ONCE DAILY Rx Instructions: TAKE ONE TABLET BY MOUTH ONCE DAILY diphenhydramine HCl [Benadryl] 25 mg capsule 25 mg PO BID PRN (Reason: sleep) Qty: 60 0RF norethindrone (contraceptive) [Gwen-BE] 0.35 mg tablet 0.35 mg PO DAILY Qty: 84 3RF fluconazole [Diflucan] 100 mg tablet 150 mg PO DAILY Qty: 1 0RF fluconazole 150 mg tablet 150 mg PO PRN Patient Comments: TAKE 1 TABLET BY MOUTH ONCE Discharge Instructions Instructions: Acute Nausea and Vomiting (ED) Additional Instructions: You were seen in the emergency department for your nausea and vomiting. Your blood work shows that your kidneys are working well and you have no sign of pancreatitis. Please take these nausea pills as directed. Please return to the emergency department as we discussed if you develop a fever cannot eat or drink as result of nausea or vomiting or develop any worsening abdominal pain. HPI General Date/Time Provider Initiated Documentation: 09/04/23 18:39. HPI Narrative: MDM This is an overall very well-appearing mildly tachycardic but afebrile 22-year-old female with generalized abdominal pain nausea vomiting concerning for gastroenteritis for which patient will receive fluids ondansetron and acetaminophen. No right lower quadrant tenderness to suggest appendicitis. No pain out of proportion to suggest necrotizing soft tissue infection. Patient does have some dysuria so we will also obtain urinalysis to assess for UTI. No flank pain nor fevers to suggest pyelonephritis. Patient is not hypotensive nor is she so my suspicion is low for ruptured ectopic . Patient has a mildly elevated blood pressure but is greater than 6 weeks so I am not concerned for preeclampsia. No chest pain so doubt esophageal rupture. Patient is nontoxic so doubt Boerhaave's syndrome. Furthermore patient is not having any headaches nor any right upper quadrant tenderness to suggest help syndrome. Not recently and no left upper quadrant tenderness to suggest splenic arterial aneurysm. No right upper quadrant tenderness nor fevers to suggest acute cholecystitis. No left lower quadrant tenderness to suggest diverticulitis. No chest pain to suggest ACS. No cough to suggest pneumonia. Will swab for COVID influenza and RSV. No abnormal vaginal discharge so doubt PID and UTI. Given no history of abdominal surgeries my suspicion is low for SBO. Patient does have an elevated BMI and as result pancreatitis is certainly in the differential so we will send a lipase. 6:51 PM Negative [id number] urine test. 7:23 PM Patient's heart rate improved with the start of her IV fluid infusion to 97 bpm. 7:30 PM Urinalysis nitrite and leukoesterase negative reassuring against UTI. CBC shows mild leukocytosis but no anemia. No thrombocytopenia. Leukocytosis improved compared to prior dated last year. 7:41 PM I went to reassess the patient. Her heart rate was 97. She was resting on her phone in no acute distress. Her comprehensive metabolic panel showed no MORIS. Mild anion gap acidosis but no hyperglycemia and normal bicarbonate??not consistent with DKA. Reassuring normal lipase. Reassuring normal magnesium. 8 PM Patient passed a p.o. challenge in the ED. We discussed return for any worsening abdominal pain nausea vomiting or any fevers. She understood her return indications and we will follow-up with her primary care provider. Will proceed with an empiric trial of expectant outpatient management. COVID influenza RSV negative. Chronic conditions affecting the care of the patient: Elevated BMI History obtained from an outside historian: N/A External record review: No [facility] Medications: Ondansetron acetaminophen famotidine Social determinants of health affecting disposition: N/A Management discussed with: N/A Treatment/interventions considered: N/A Response to therapies provided: Improved symptoms status post treatment in the ED HPI This is a 22-year-old female arrived to the emergency department via private vehicle in setting of nausea vomiting and diarrhea that began acutely this morning at 3:30 AM. Patient reports that she attempted treatment with some [id number] nausea medicines which transiently improved her symptoms. She says that she has vomited 7 times. She said that she twice had diarrhea. She tried eating some chicken noodle soup earlier today and vomited. She endorses generalized abdominal pain primarily in her epigastrium. She has never had any surgeries to her abdomen. She has had some dysuria for the past approximately 10 days. She was treated with fluconazole last week in the setting of bacterial vaginosis. She has had no fevers. No sick contacts. Exam General: Well-appearing in no acute distress speaking in complete sentences. Head: Normocephalic, atraumatic. Eye: Extraocular eye movements intact. No conjunctival injection. No scleral icterus. Ear, nose, mouth, throat: Grossly normal inspection. Normal voice, handling secretions normally. Neck: Trachea midline. Cardiovascular: Well-perfused distal extremities. Regular rapid rate Respiratory: Nonlabored respiration. Clear lungs bilaterally Gastrointestinal: Nondistended abdomen. Soft nontender. No rebound. No guarding. Musculoskeletal: No edema. Moving all 4 extremities spontaneously. Skin: Normal for age and race, grossly normal temperature and turgor. No acute rash. Neurologic: Alert and appropriate, no apparent acute deficits. Psychiatric: Mood and manner are appropriate. Grooming and personal hygiene are appropriate. Related Data Home Medications Medication Instructions Recorded Confirmed levothyroxine 50 mcg tablet See Rx Instructions .Route 09/24/22 09/04/23 .COMPLEX #90 tabs diphenhydramine HCl 25 mg capsule 25 mg PO BID PRN sleep #60 caps 12/03/22 08/22/23 (Benadryl) norethindrone (contraceptive) 0.35 0.35 mg PO DAILY #84 tabs 05/15/23 09/04/23 mg tablet (Gwen-BE) fluconazole 100 mg tablet 150 mg (1.5 x 100 mg) PO DAILY #1 08/26/23 09/04/23 (Diflucan) tab fluconazole 150 mg tablet 150 mg PO PRN 09/04/23 09/04/23 Previous Rx's Medication Instructions Recorded levothyroxine 50 mcg tablet See Rx Instructions .Route 09/24/22 .COMPLEX #90 tabs diphenhydramine HCl 25 mg capsule 25 mg PO BID PRN sleep #60 caps 12/03/22 (Benadryl) norethindrone (contraceptive) 0.35 0.35 mg PO DAILY #84 tabs 05/15/23 mg tablet (Gwen-BE) fluconazole 100 mg tablet 150 mg (1.5 x 100 mg) PO DAILY #1 08/26/23 (Diflucan) tab Allergies Allergy/AdvReac Type Severity Reaction Status Date / Time amoxicillin Allergy Intermediate skin rash Verified 09/04/23 18:39 Penicillins Allergy Intermediate Skin Rash Verified 09/04/23 18:39 clindamycin Allergy Mild Skin Rash Verified 09/04/23 18:39 General SAI: 3 Medical Decision Making Quality:SDOH Health Related Social Needs: No Data to Display PFSH All Active Problems (Updated 09/04/23 @ 19:44 by Hugh Palomino MD) Nausea and vomiting (Acute) Dysuria (Acute) Oral contraceptive use (Acute) Headache (Acute) Hypothyroid (Chronic) Maternal varicella, non-immune (Acute) BMI 37.0-37.9, adult (Acute) Obesity (Chronic) Medical History Depo-Provera contraceptive status Lactating mother Pain, dental Elevated TSH Pelvic pain Muscle spasm Concussion Mild - one day of headache and being tired Acute left ankle pain Acute pain of left shoulder High BMI BMI 43 Irregular periods/menstrual cycles Migraine headache without aura resolved 2017 ADHD (attention deficit hyperactivity disorder) no medications after age 15 Surgical History H/O wisdom tooth extraction Family History Mother Bipolar 1 disorder, depressed Father , 45 Anxiety Depression Heart disease Myocardial infarction at age 45 Maternal Grandfather , in his late 70s Alzheimer's dementia Maternal Grandmother , at 69 of lung cancer Lung cancer Paternal Grandfather Type 2 diabetes mellitus Asthma Heart disease Cancer Paternal Grandmother Hyperlipidemia Hypertension Thyroid disease Social History Smoking/Tobacco Use Status: Never Second Hand Exposure: Yes Smoking risk assessment performed?: Yes Alcohol Intake: never Drug use: Never Substance use type: does not use Caregiver/Support person: Yes Foster care: No Household members: other Details: Livs with Grandparents Housing: apartment 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 Pets and animals: Yes Pets and animals: cat(s) and dog(s) Sexually active: Yes Do you think of yourself as: straight/heterosexual Current gender identity: female What type of physical activity do you participate in: walking Seatbelt use: always Helmet use: Yes Drive intox or ride w/intox 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 Date GA/Weeks # Preg Succ Route Wgt Sex Labor Lgth Anesthesia Location Prov Complic 05/12/19 09/26/22 38 No Yes vaginal Male [facility] Delivery Date: 05/12/19 Last Updated by: Saira Alberto CNM pos. PT and bleeding soon after Delivery Date: 09/26/22 Last Updated by: SANTIAGO Mckee
[2023-09-04 18:41] VITALS: BP 145/91; PULSE 108; RESP 16; TEMP 36.4; O2SAT 95
[2023-09-04] MEDS: Ondansetron 4 MG/2 ML VIAL IVP (19:13)
[2023-09-04] MEDS: Famotidine 20 MG/2 ML VIAL 40 MG IVP (19:15)
[2023-09-04] MEDS: ACETAMINOPHEN 1,000 MG/100 ML BTL 400 MG IVPB (19:17)
[2023-09-04] MEDS: Normal Saline 1,000 ML 1000 ML IV (19:19)
[2023-09-04 19:25] LABS: Abs Immature Grans 0.03 10^3/uL (0.0-0.06); Absolute Basophil Count 0.03 10^3/uL (0.0-0.2); Absolute Lymphocyte Count 1.22 10^3/uL (1.2-3.4); Absolute Monocyte Count 0.52 10^3/uL (0.1-0.8); Basophils % 0.3; Eosinophils % 2.7; HCT 42.3 % (36.0-46.0); HGB 13.4 g/dL (11.2-15.7); Immature Grans % 0.3; MCHC 31.7 % (32.0-36.0); MCV 85 fL (80-95); MPV 8.6 fL (8.0-11.0); Monocytes % 4.7; Platelet Count 355 10^3/uL (130-400); RBC 4.96 10^6/uL (3.93-5.22); RDW 14.2 % (11.7-14.6); RDW-SD 43.7 fL
[2023-09-04 19:26] LABS: Absolute Neutrophil Count 8.99 10^3/uL (1.2-6.7)
[2023-09-04 19:27] LABS: Bilirubin Negative (Negative); Blood Negative (Negative); Clarity Clear (Clear); Glucose Negative (Negative); Ketones Negative (Negative); Leukocyte Esterase Negative (Negative); Nitrite Negative (Negative); Specific Gravity 1.025 (1.005-1.025); Urobilinogen 0.2 mg/dL (Up to 0.2)
[2023-09-04 19:32] LABS: ALT 48 U/L (14-59); AST 23 U/L (15-37); Albumin 3.5 g/dL (3.4-5.0); Alkaline Phosphatase 111 U/L (46-116); Anion Gap 11.1 mmol/L (3-11); BUN 12 mg/dL (7-18); Bilirubin, Total 0.3 mg/dL (0.2-1.0); CO2 25.9 mmol/L (21.0-32.0); CREATININE 0.8 mg/dL (0.55-1.02); Calcium 8.6 mg/dL (8.5-10.1); Chloride 104 mmol/L (98-107); Estimated GFR 105.45 (mL/min/1.73m2); Glucose 89 mg/dL (74-106); Lipase 37 U/L (16-77); Potassium 3.7 mmol/L (3.5-5.1); Sodium 141 mmol/L (136-145); Total Protein 7.7 g/dL (6.4-8.2)
[2023-09-04 19:43] VITALS: BP 106/51; PULSE 96; RESP 18; O2SAT 98
[2023-09-04] MEDS: Ondansetron O.D.T. 4 MG TABEF, 3 TABS/BTL PO (19:54)
[2023-09-04 19:55] LABS: COVID-19 PCR Negative (Negative); Influenza A PCR Negative (Negative); Influenza B PCR Negative (Negative); RSV PCR Negative (Negative); Source NASOPHARYNX
== END 2023-09-04 20:09 | disposition home or self-care (01) ==
PROVIDERS: Emergency Provider Emergency Medicine; PCP Nurse Practitioner Family
DX: R11.2 Nausea with vomiting, unspecified (principal); R19.7 Diarrhea, unspecified; R03.0 Elevated blood-pressure reading, without diagnosis of hypertension; R00.0 Tachycardia, unspecified; R30.0 Dysuria
CPT/HCPCS: 80053; 81025; 83690; 87637; 96374; 96375; 99284; 81003; 83735; 85025; 99283; J0131; J2405

== ENCOUNTER 2023-11-05 05:22 | Outpatient (CLI) | payer MEDICAID, SELFPAY ==
[2023-11-05 16:03] LABS: TSH (W/Ref FT4) 4.37 uIU/mL (0.36-3.74)
== END 2023-11-05 05:23 | disposition home or self-care (01) ==
LOC: LBO 05:22
PROVIDERS: PCP Nurse Practitioner Family; Visit Provider Advanced Practice Midwife
DX: E03.9 Hypothyroidism, unspecified (principal)
CPT/HCPCS: 36415; 84439; 84443

== ENCOUNTER 2024-03-21 09:07 | Emergency (ER) | payer MEDICAID, SELFPAY ==
[2024-03-21 09:08] VITALS: BP 119/65; PULSE 87; RESP 15; TEMP 36.8; O2SAT 97
[2024-03-21 09:14] VITALS: BP 119/65; PULSE 87; RESP 15; TEMP 36.8; O2SAT 97
--- NOTE | 2024-03-21 09:15 | DI.RAD_ITS ---
Exam(s) XR CHEST 2V PA LATERAL EXAM: XR CHEST 2V PA LATERAL CLINICAL HISTORY: Eval PNA TECHNIQUE: 2D digital imaging was performed. Two views. COMPARISON: No exams were available for comparison FINDINGS: HEART: Normal size. Aorta: Not dilated. PULMONARY VASCULATURE: Normal. MEDIASTINUM: Unremarkable. LUNGS: Clear. PLEURAL SPACE: No pleural effusion or pneumothorax. BONE:Unremarkable for age. SOFT TISSUES: Unremarkable. IMPRESSION: No acute abnormality. DATA REPOSITORY: RADIATION DOSE DELIVERED:
--- NOTE | 2024-03-21 09:31 | ED.GENADUL_ITS ---
Discharge Plan Disposition Patient Disposition: Home Condition: Stable Discharge Details Clinical Impression: Upper respiratory infection, viral Primary Care Provider: Inga Prince ED Provider: Fanny Thapa Home Meds and New Rx's Prescriptions: No Action levothyroxine 50 mcg tablet See Rx Instructions .ROUTE .COMPLEX Qty: 90 0RF Dose Instruction: TAKE ONE TABLET BY MOUTH ONCE DAILY Rx Instructions: TAKE ONE TABLET BY MOUTH ONCE DAILY diphenhydramine HCl [Benadryl] 25 mg capsule 25 mg PO BID PRN (Reason: sleep) Qty: 60 0RF norethindrone (contraceptive) [Gwen-BE] 0.35 mg tablet 0.35 mg PO DAILY Qty: 84 3RF levothyroxine 50 mcg capsule 50 mcg PO DAILY Qty: 60 0RF fluconazole 150 mg tablet 150 mg PO PRN Patient Comments: TAKE 1 TABLET BY MOUTH ONCE Discharge Instructions Instructions: Viral Upper Respiratory Infection, Adult (DC) Additional Instructions: You were seen in the emergency department today for evaluation of sore throat, cough, and bodyaches, most concerning for a viral upper respiratory infection. You had a negative test for COVID, influenza, and RSV, but there are many other viruses that can cause the symptoms that you are experiencing. You have a chest x-ray that did not show any evidence of significant pneumonia, and your vital signs were appropriate. You can continue to use Tylenol and ibuprofen at home to manage body aches, fever, and should follow-up with your primary care provider in the next few days to discuss any symptoms that change, worsen, or persist. You can return to the emergency department if you develop worsening shortness of breath, chest pain, or any other symptoms that cause you concern. Thank you for allowing us to be part of your care. Stand Alone Forms: Work Release HPI General Date/Time Provider Initiated Documentation: 03/21/24 09:11 . Limitations to Documentation: no limitations . Information obtained by: patient and old records reviewed . HPI Narrative: HPI: This is a 23-year-old female patient presenting for evaluation of 1 week of sore throat and 1 day of cough and shortness of breath. 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 Her child and the kids at school had a mild cough a week or so ago, she herself developed a scratchy throat a week ago that was not associated with any difficulty maintaining her oral intake, which she initially attributed to her allergies. Last night she began to feel notably unwell, with bodyaches, cough, and coughed up a ball of mucus with streaks of blood on the outside. She reports that she has not had measured fever, has been managing her symptoms at home with DayQuil and ibuprofen. She states that she noticed some discomfort in her bilateral chest wall during coughing, no chest pain at rest. She takes oral control pills for contraception and had a negative home test recently, and states that she has never had any cardiac disease or thromboembolic disease, denies leg swelling or tenderness. The patient was prompted to seek care due to her work at the school, wanting to identify any severe viral or bacterial infections to avoid spread. Last dose of home medications at midnight. Exam: Gen: Awake and alert, in no apparent distress HEENT: Non-icteric sclera, bilateral TMs clear, posterior pharynx with large symmetrical tonsils, no exudates or erythema. Conjunctiva not injected Neck: Supple, no lymphadenopathy or meningismus Lungs: No apparent respiratory distress, normal respiratory effort., Lung sounds clear and equal bilaterally CV: Appears well perfused, heart with regular rate and rhythm, chest wall tender to palpation bilaterally Abdomen: Non-distended MSK: Moves 4 extremities without apparent limitation in ROM, no peripheral edema, no unilateral calf swelling or tenderness. Skin: Visualized skin without rashes, cyanosis. Neuro: Normal Gait, no obvious focal deficits or facial asymmetry. Speaks in full, clear sentences. Psych: Appropriate for situation. MDM: This is a 23-year-old female patient presenting for evaluation of sore throat, cough, and stuffy nose. My differential includes but is not limited to viral upper respiratory infection, considered otitis media though there is no evidence on my physical examination for same, no findings concerning for mastoiditis. No evidence of exudative pharyngitis, CAN CARRIER, RPA. I considered pneumonia, bronchitis. No focal lung findings to suggest reactive airway disease exacerbation, pulmonary edema, pleural effusion, or pneumothorax. The patient is reassuringly afebrile despite not having taken antipyretics in the last 8 hours, and I have a lower concern based on her hemodynamic stability for systemic infections such as bacteremia, sepsis, meningitis. We will obtain COVID and influenza testing as well as a chest x-ray. A [id number] was obtained and was negative. I provided the patient with Tylenol and ibuprofen for symptomatic management of bodyaches. ED Course: COVID, influenza, and RSV testing was negative. I independently interpreted the patient's chest x-ray, which does not show any obvious consolidations or lobar changes suggestive of community-acquired pneumonia. The patient reports significant improvement with her symptoms after the above-noted medications. She is desiring of discharge home but I did provide her with a work note given that she works at a school and should consider herself infectious while she is symptomatic. At this time, the patient has had a full medical evaluation and is safe for discharge to home. They are hemodynamically stable, ambulatory, and tolerating PO. They are understanding of the follow-up plan and return precautions. They left our facility without incident. Fanny Thapa MD Related Data Home Medications ?Medication ?Instructions ?Recorded ?Confirmed levothyroxine 50 mcg tablet See Rx Instructions .Route 09/24/22 03/21/24 .COMPLEX #90 tabs diphenhydramine HCl 25 mg capsule 25 mg PO BID PRN sleep #60 caps 12/03/22 03/21/24 (Benadryl) norethindrone (contraceptive) 0.35 0.35 mg PO DAILY #84 tabs 05/15/23 03/21/24 mg tablet (Gwen-BE) fluconazole 150 mg tablet 150 mg PO PRN 09/04/23 03/21/24 levothyroxine 50 mcg capsule 50 mcg PO DAILY #60 caps 11/07/23 03/21/24 Previous Rx's ?Medication ?Instructions ?Recorded levothyroxine 50 mcg tablet See Rx Instructions .Route 09/24/22 .COMPLEX #90 tabs diphenhydramine HCl 25 mg capsule 25 mg PO BID PRN sleep #60 caps 12/03/22 (Benadryl) norethindrone (contraceptive) 0.35 0.35 mg PO DAILY #84 tabs 05/15/23 mg tablet (Gwen-BE) levothyroxine 50 mcg capsule 50 mcg PO DAILY #60 caps 11/07/23 Allergies Allergy/AdvReac Type Severity Reaction Status Date / Time amoxicillin Allergy Intermediate skin rash Verified 03/21/24 09:14 Penicillins Allergy Intermediate Skin Rash Verified 03/21/24 09:14 clindamycin Allergy Mild Skin Rash Verified 03/21/24 09:14 General Stated Complaint: RespSymp SAI: 4 Course Vital Signs Vital signs: Vital Signs Temperature 36.8 C 03/21/24 09:08 Pulse 87 03/21/24 09:08 Respiratory Rate 15 03/21/24 09:08 Blood Pressure 119/65 03/21/24 09:08 Pulse Oximetry 97 03/21/24 09:08 Temperature 36.8 C 03/21/24 09:14 Temperature Source Oral 03/21/24 09:14 Pulse 87 03/21/24 09:14 Respiratory Rate 15 03/21/24 09:14 Respiratory Effort Non-Labored, Short of Breath 03/21/24 09:15 Respiratory Depth Normal 03/21/24 09:15 Blood Pressure 119/65 03/21/24 09:14 Blood Pressure Position Sitting 03/21/24 09:14 Pulse Oximetry 97 03/21/24 09:14 Oxygen Delivery Method Room Air 03/21/24 09:14 Oxygen Flow Rate 0 03/21/24 09:14 Pain Level 4 03/21/24 09:14 Medical Decision Making Quality:SDOH Health Related Social Needs: No Data to Display PFSH All Active Problems (Updated 03/21/24 @ 10:43 by Fanny Thapa MD) Upper respiratory infection, viral (Acute) Oral contraceptive use (Acute) Headache (Acute) Hypothyroid (Chronic) BMI 37.0-37.9, adult (Acute) Obesity (Chronic) Medical History (Updated 03/21/24 @ 10:43 by Fanny Thapa MD) Maternal varicella, non-immune Depo-Provera contraceptive status Lactating mother Pain, dental Elevated TSH Pelvic pain Muscle spasm Concussion Mild - one day of headache and being tired Acute left ankle pain Acute pain of left shoulder High BMI BMI 43 Irregular periods/menstrual cycles Migraine headache without aura resolved 2017 ADHD (attention deficit hyperactivity disorder) no medications after age 15 Surgical History H/O wisdom tooth extraction Family History Mother Bipolar 1 disorder, depressed Father , 45 Anxiety Depression Heart disease Myocardial infarction at age 45 Maternal Grandfather , in his late 70s Alzheimer's dementia Maternal Grandmother , at 69 of lung cancer Lung cancer Paternal Grandfather Type 2 diabetes mellitus Asthma Heart disease Cancer Paternal Grandmother Hyperlipidemia Hypertension Thyroid disease Social History Smoking/Tobacco Use Status: Never Second Hand Exposure: Yes Smoking risk assessment performed?: Yes Alcohol Intake: never Drug use: Never Substance use type: does not use Caregiver/Support person: Yes Foster care: No Household members: other Details: Livs with Grandparents Housing: apartment 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 Pets and animals: Yes Pets and animals: cat(s) and dog(s) Sexually active: Yes Do you think of yourself as: straight/heterosexual Current gender identity: female What type of physical activity do you participate in: walking Seatbelt use: always Helmet use: Yes Drive intox or ride w/intox 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 Date GA/Weeks # Preg Succ Route Wgt Sex Labor Lgth Anesth esia Location [facility] 05/12/19 09/26/22 38 No Yes vaginal Male [facility] Delivery Date: 05/12/19 Last Updated by: Saira Alberto CNM pos. PT and bleeding soon after Delivery Date: 09/26/22 Last Updated by: SANTIAGO Mckee
[2024-03-21] MEDS: Acetaminophen 500 MG TAB 1000 MG PO (09:41)
[2024-03-21] MEDS: Ibuprofen 600 MG TAB PO (09:42)
[2024-03-21 10:22] LABS: COVID-19 PCR Negative (Negative); Influenza A PCR Negative (Negative); Influenza B PCR Negative (Negative); RSV PCR Negative (Negative)
[2024-03-21 10:24] LABS: Source Nasopharynx
[2024-03-21 11:02] VITALS: BP 122/70; PULSE 68; RESP 15; O2SAT 97
--- NOTE | 2024-03-21 11:07 | DI.VRAD_ITS ---
PROCEDURE INFORMATION: Exam: XR Chest Exam date and time: 03/21/2024 10:10 AM Age: 23 years old Clinical indication: Other: Evaluate pna TECHNIQUE: Imaging protocol: Radiologic exam of the chest. Views: 2 views. COMPARISON: CT ABDOMEN PELVIS W 10/27/2022 8:32 PM FINDINGS: Lungs: Unremarkable. No consolidation. Pleural spaces: Unremarkable. No pleural effusion. No pneumothorax. Heart/Mediastinum: Unremarkable. No cardiomegaly. Bones/joints: Unremarkable. IMPRESSION: No acute findings. Dictated and Authenticated by: Cesario Siddiqui MD. Ordering:MATA Schuster MD
== END 2024-03-21 11:03 | disposition home or self-care (01) ==
PROVIDERS: Emergency Provider Emergency Medicine; PCP Nurse Practitioner Family
DX: J06.9 Acute upper respiratory infection, unspecified (principal); R07.0 Pain in throat; R11.0 Nausea; R53.83 Other fatigue
CPT/HCPCS: 81025; 87637; 99283; 71046

== ENCOUNTER 2024-04-18 01:52 | Emergency (ER) | payer MEDICAID, SELFPAY ==
[2024-04-18 01:57] VITALS: BP 149/88; PULSE 78; RESP 16; TEMP 36.1; O2SAT 98
[2024-04-18 02:00] VITALS: PULSE 78; RESP 16; TEMP 36.6; O2SAT 98
--- NOTE | 2024-04-18 02:07 | ED.GENADUL_ITS ---
Discharge Plan Disposition Patient Disposition: Home Condition: Good Discharge Details Clinical Impression: Headache Primary Care Provider: Inga Prince ED Provider: Johanna Higuera Home Meds and New Rx's Prescriptions: Continued diphenhydramine HCl [Benadryl] 25 mg capsule 25 mg PO BID PRN (Reason: sleep) Qty: 60 0RF norethindrone (contraceptive) [Gwen-BE] 0.35 mg tablet 0.35 mg PO DAILY Qty: 84 3RF levothyroxine 50 mcg tablet See Rx Instructions .ROUTE .COMPLEX Qty: 90 1RF Dose Instruction: TAKE ONE TABLET BY MOUTH ONCE DAILY Rx Instructions: TAKE ONE TABLET BY MOUTH ONCE DAILY Discharge Instructions Instructions: Headache, Adult ED Additional Instructions: Call your primary care doctor when the office is open to schedule an appointment for within one week to followup on your visit here. Return to the emergency department for new or worsening symptoms including new/different/worse headache, vomiting, numbness, weakness, vertigo, fever, or if you have any other concerns. Referrals: Inga Prince, DEMETRA [Primary Care Provider] - [facility] General Mode of arrival: ambulatory . Date/Time Provider Initiated Documentation: 04/18/24 01:54 . Limitations to Documentation: no limitations . Information obtained by: patient . HPI Narrative: 23yo F with hx of migraine headaches, hypothyroid, presenting with headache. Symptoms started yesterday morning around 0900 after she had gotten up for the day and have been gradually worsening since then. Has tried tylenol and excedrin at home with minimal improvement, currently unable to sleep. Pain is retro-orbital, right sided, and associated with nausea and photophobia. Emesis x 1, nonbloody nonbilious. Feels typically of her prior migraines although she has not had one this bad since she was around 13 years old. It is not the worst headache of her life. It was not maximal at onset. It is not positional. No recent head trauma. No fevers, chills, or rash. No neck pain or rigidity. No numbness, tingling, weakness, vision changes, or vertigo. No personal or family history of aneurysm/AVM/SAH She is otherwise in her usual state of health. Related Data Home Medications ?Medication ?Instructions ?Recorded ?Confirmed diphenhydramine HCl 25 mg capsule 25 mg PO BID PRN sleep #60 caps 12/03/22 04/18/24 (Benadryl) norethindrone (contraceptive) 0.35 0.35 mg PO DAILY #84 tabs 05/15/23 04/18/24 mg tablet (Gwen-BE) levothyroxine 50 mcg tablet See Rx Instructions .Route 04/15/24 04/18/24 .COMPLEX #90 tabs Previous Rx's ?Medication ?Instructions ?Recorded diphenhydramine HCl 25 mg capsule 25 mg PO BID PRN sleep #60 caps 12/03/22 (Benadryl) norethindrone (contraceptive) 0.35 0.35 mg PO DAILY #84 tabs 05/15/23 mg tablet (Gwen-BE) levothyroxine 50 mcg tablet See Rx Instructions .Route 04/15/24 .COMPLEX #90 tabs Allergies Allergy/AdvReac Type Severity Reaction Status Date / Time amoxicillin Allergy Intermediate skin rash Verified 04/18/24 01:56 Penicillins Allergy Intermediate Skin Rash Verified 04/18/24 01:56 clindamycin Allergy Mild Skin Rash Verified 04/18/24 01:56 General Stated Complaint: Headache SAI: 3 Review of Systems Narrative: see HPI Exam Narrative Exam Narrative: General: Alert, well appearing, well nourished. Head: Normocephalic, atraumatic. No temporal tenderness. Neck: Trachea midline, ?Neck supple. ENT: ?MMM.? No oropharygeal lesions or exudate. Cardiac: ?RRR, no murmurs appreciated Resp: No respiratory distress. CTAB. Abd: ?Soft, non-distended, nontender Extremities: ?No deformities.? No peripheral edema. Neuro: ? GCS 15.? PERRL.? EOMI.? Fluent speech, no dysarthria. No nuchal rigidity. Motor- 5/5 strength symmetric bilateral upper and lower extremities Sensation- ?Intact to light touch and symmetric multiple dermatomes including upper and lower extremities Coordination- No dysmetria on finger to nose Gait/station: ?Normal stance.? No truncal ataxia. Steady gait with equal normal steps CRANIAL NERVES: II: Pupils equal and reactive, III, IV, : EOM intact, no gaze preference or deviation, no nystagmus. V: normal sensation in V1, V2, and V3 segments bilaterally VII: no asymmetry, no nasolabial fold flattening VIII: normal hearing to speech IX, X: normal palatal elevation, no uvular deviation XI: 5/5 head turn and 5/5 shoulder shrug bilaterally XII: midline tongue protrusion Course Vital Signs Vital signs: Vital Signs Temperature 36.1 C L 04/18/24 01:57 Pulse 78 04/18/24 01:57 Respiratory Rate 16 04/18/24 01:57 Blood Pressure 149/88 H 04/18/24 01:57 Pulse Oximetry 98 04/18/24 01:57 Temperature 36.6 C 04/18/24 02:00 Temperature Source Temporal Artery Scan 04/18/24 02:00 Pulse 78 04/18/24 02:00 Respiratory Rate 16 04/18/24 02:00 Respiratory Effort Normal, Non-Labored 04/18/24 02:00 Blood Pressure 149/88 H 04/18/24 01:57 Blood Pressure Position Sitting 04/18/24 01:57 Pulse Oximetry 98 04/18/24 02:00 Oxygen Delivery Method Room Air 04/18/24 02:00 Oxygen Flow Rate 0 04/18/24 01:57 Pain Level 8 04/18/24 02:00 Medical Decision Making 23yo F with hx of migraine headaches, hypothyroid, presenting with headache. Symptoms started yesterday morning around 0900 after she had gotten up for the day and have been gradually worsening since then. Hypertensive on arrival (suspect 2/t pain), vital signs otherwise reassuring. Afebrile. Normal neurologic exam. Aside from associated vomiting which she reports is typical of her prior migraines she has no red flags on history or exam; not suggestive of meningitis/encephalitis, SAH/ICH, CVA, venous sinus thrombosis, giant cell arteritis, glaucoma . Would not get labs, head CT, or LP at this time. Will treat with IVFB, IV tylenol/toradol/compazine/Benadryl. On reassessment patient reports feeling much better, requests discharge home which is reasonable. Vital signs reassuring. Discharged; discharge instructions and return precautions were reviewed with patient who verbalizes understanding. All questions were answered and she is in full agreement with the plan. Quality:SDOH Health Related Social Needs: No Data to Display PFSH All Active Problems (Updated 04/18/24 @ 03:36 by Johanna Higuera MD) Headache (Acute) Upper respiratory infection, viral (Acute) Oral contraceptive use (Acute) Headache (Acute) Hypothyroid (Chronic) BMI 37.0-37.9, adult (Acute) Obesity (Chronic) Medical History (Updated 04/18/24 @ 03:36 by Johanna Higuera MD) Maternal varicella, non-immune Depo-Provera contraceptive status Lactating mother Pain, dental Elevated TSH Pelvic pain Muscle spasm Concussion Mild - one day of headache and being tired Acute left ankle pain Acute pain of left shoulder High BMI BMI 43 Irregular periods/menstrual cycles Migraine headache without aura resolved 2017 ADHD (attention deficit hyperactivity disorder) no medications after age 15 Surgical History H/O wisdom tooth extraction Family History Mother Bipolar 1 disorder, depressed Father , 45 Anxiety Depression Heart disease Myocardial infarction at age 45 Maternal Grandfather , in his late 70s Alzheimer's dementia Maternal Grandmother , at 69 of lung cancer Lung cancer Paternal Grandfather Type 2 diabetes mellitus Asthma Heart disease Cancer Paternal Grandmother Hyperlipidemia Hypertension Thyroid disease Social History Smoking/Tobacco Use Status: Never Second Hand Exposure: Yes Smoking risk assessment performed?: Yes Alcohol Intake: current Alcohol Intake frequency: holidays/special occasions only Drug use: Never Substance use type: does not use Caregiver/Support person: Yes Foster care: No Household members: other Details: Livs with Grandparents Housing: apartment 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 Pets and animals: Yes Pets and animals: cat(s) and dog(s) Sexually active: Yes Do you think of yourself as: straight/heterosexual Current gender identity: female What type of physical activity do you participate in: walking Seatbelt use: always Helmet use: Yes Drive intox or ride w/intox auto crane driver: No Firearms in home: Yes Firearms unloaded and locked: Yes Do you feel safe at home: Yes Do you feel safe in your relationship?: Yes Female Reproductive History Menstrual control method: pills History History 2 Para 1 Hx # Term Pregnancies 1 Multiple births 0 Hx # Pregnancies 0 Ectopic pregnancies 0 AB induced 0 Hx Number of Living Children 1 AB spontaneous 1 Past Pregnancies Del. Date GA/Weeks # Preg Succ Route Wgt Sex Labor Lgth Anesth esia Location Prov Complic 05/12/19 09/26/22 38 No Yes vaginal Male [facility]donado Delivery Date: 05/12/19 Last Updated by: Saira Alberto CNM pos. PT and bleeding soon after Delivery Date: 09/26/22 Last Updated by: SANTIAGO Mckee Have you Been Recently Intoxicated or Drunk Within the Last 30 days?: No Have you Ever Experienced Previous Episodes of Alcohol Withdrawal?: No Have you ever Experienced Withdrawal Seizures?: No Have you ever Experienced Delirium Tremens(DT)s?: No Have you ever undergone Alcohol Rehabilitation Treatment (i.e, inpt ot outpatient treatment programs)?: No Have you ever Experienced Blackouts?: No Have you ever Combined Alcohol with other Downers within the last 90 days?: No Have you ever Combined Alcohol with any other Substance of Abuse during the last 90 days?: No Positive Blood Alcohol level on Presentation? [PCS.BAL]: No Evidence of Increased Autonomic Activity (i.e. HR>120, tremor, sweating, agitation, nausea)?: No Result: 0
[2024-04-18] MEDS: diphenhydrAMINE 50 MG/ML VIAL 25 MG IVP (02:13)
[2024-04-18] MEDS: Ketorolac 15 MG/ML VIAL IVP (02:14)
[2024-04-18] MEDS: Prochlorperazine 10 MG/2 ML VIAL IVP (02:14)
[2024-04-18] MEDS: ACETAMINOPHEN 1,000 MG/100 ML BAG 400 MG IVPB (02:32)
[2024-04-18] MEDS: Normal Saline 1,000 ML 1000 ML IV (02:33)
[2024-04-18 03:45] VITALS: BP 116/83; PULSE 64; RESP 19; TEMP 36.2; O2SAT 98
== END 2024-04-18 03:45 | disposition home or self-care (01) ==
PROVIDERS: Emergency Provider Student in an Organized Health Care Education/Training Program; PCP Nurse Practitioner Family
DX: R51.9 Headache, unspecified (principal); R11.2 Nausea with vomiting, unspecified
CPT/HCPCS: 96365; 96375; 99284; 99283; J0131; J0780; J1200; J1885

== ENCOUNTER 2024-05-25 14:03 | Outpatient (REF) | payer MEDICAID, SELFPAY | END 2024-05-25 14:04 | disposition home or self-care (01) | LOC: LBN 14:03 | PROVIDERS: PCP Nurse Practitioner Family; Visit Provider Nurse Practitioner Family | DX: J02.9 Acute pharyngitis, unspecified (principal); R68.89 Other general symptoms and signs; J06.9 Acute upper respiratory infection, unspecified | CPT/HCPCS: 87070 ==

== ENCOUNTER 2024-05-26 16:21 | Emergency (ER) | payer MEDICAID, SELFPAY ==
[2024-05-26 16:25] VITALS: BP 120/83; PULSE 83; RESP 24; TEMP 36.6; O2SAT 96
--- NOTE | 2024-05-26 16:30 | ED.GENADUL_ITS ---
Discharge Plan Disposition Patient Disposition: Home Condition: Stable Discharge Details Clinical Impression: Viral syndrome Primary Care Provider: Inga Prince ED Provider: Jamie Shipman Home Meds and New Rx's Prescriptions: New ondansetron 4 mg tablet,disintegrating 4 mg PO Q8H PRN (Reason: nausea and vomiting) Qty: 30 0RF Continued diphenhydramine HCl [Benadryl] 25 mg capsule 25 mg PO BID PRN (Reason: sleep) Qty: 60 0RF norethindrone (contraceptive) [Gwen-BE] 0.35 mg tablet 0.35 mg PO DAILY Qty: 84 3RF levothyroxine 50 mcg tablet See Rx Instructions .ROUTE .COMPLEX Qty: 90 1RF Dose Instruction: TAKE ONE TABLET BY MOUTH ONCE DAILY Rx Instructions: TAKE ONE TABLET BY MOUTH ONCE DAILY phentermine 15 mg capsule 15 mg PO DAILY Qty: 30 0RF Rx Instructions: must administer 2 hours after breakfast Discharge Instructions Instructions: Cough, runny nose, and the common cold Additional Instructions: You were seen in the emergency department for your ear pressure, sinus congestion, cough, sore throat, nausea and vomiting, generalized viral syndrome. Please take [id number] decongestants, please use therapeutic dosing of Tylenol (acetamenophen) & Advil (ibuprofen) in an alternating fashion as follows: Take 1000mg of Tylenol every 6 hours without missing doses- that is 4 times per day. [place] in between the Tylenol dosings, take 400-600mg of Advil also on a 6 hour schedule, that is also 4 times per day. The daily maximum dosing of Tylenol is 4000mg, and the daily maximum dosing of Advil is 2400mg. This is safe to do for weeks. Please note that some common cold medications & prescription pain medications may contain acetamenophen and you need to read OTC drug labels and factor that in to maximum daily dosings. Take the prescribed ondansetron for acute nausea and vomiting as needed 3 times per day about 20 minutes before eating Please return to the emergency department for any increasing respiratory distress, high fevers not responding to nejm-nrm-pzrtetq medicines, intractable nausea or vomiting and inability to eat or drink anything Stand Alone Forms: Work Release Referrals: Inga Prince NP [Primary Care Provider] - Discharge Data Discharge Date/Time-TO BE ENTERED AT DEPARTURE: 05/26/24 16:54 HPI General Date/Time Provider Initiated Documentation: 05/26/24 16:30 . HPI Narrative: 23 year-old female presents to ED today by POV/ambulating with a chief complaint of runny nose, ear pain, cough, vomiting, body aches, denies fever with onset for the past 3 days. Quality described as generalized malaise, no radiation to inability to tolerate PO intake, shortness of breath, chest pain, high fevers, loss of hearing. Severity is described as mild to moderate. Palliating factors include nothing specific attempted. Provoking factors include nothing specific. Patient not anticoagulated. Related Data Home Medications ?Medication ?Instructions ?Recorded ?Confirmed diphenhydramine HCl 25 mg capsule 25 mg PO BID PRN sleep #60 caps 12/03/22 05/26/24 (Benadryl) norethindrone (contraceptive) 0.35 0.35 mg PO DAILY #84 tabs 05/15/23 05/26/24 mg tablet (Gwen-BE) levothyroxine 50 mcg tablet See Rx Instructions .Route 04/15/24 05/26/24 .COMPLEX #90 tabs phentermine 15 mg capsule 15 mg PO DAILY #30 caps 04/23/24 05/26/24 ondansetron 4 mg disintegrating 4 mg PO Q8H PRN nausea and 05/26/24 tablet vomiting #30 tabs Previous Rx's ?Medication ?Instructions ?Recorded diphenhydramine HCl 25 mg capsule 25 mg PO BID PRN sleep #60 caps 12/03/22 (Benadryl) norethindrone (contraceptive) 0.35 0.35 mg PO DAILY #84 tabs 05/15/23 mg tablet (Gwen-BE) levothyroxine 50 mcg tablet See Rx Instructions .Route 04/15/24 .COMPLEX #90 tabs phentermine 15 mg capsule 15 mg PO DAILY #30 caps 04/23/24 ondansetron 4 mg disintegrating 4 mg PO Q8H PRN nausea and 05/26/24 tablet vomiting #30 tabs Allergies Allergy/AdvReac Type Severity Reaction Status Date / Time amoxicillin Allergy Intermediate skin rash Verified 05/26/24 16:27 Penicillins Allergy Intermediate Skin Rash Verified 05/26/24 16:27 clindamycin Allergy Mild Skin Rash Verified 05/26/24 16:27 General Stated Complaint: RespSymp SAI: 4 Review of Systems All systems reviewed & are unremarkable except as noted in HPI and below Exam Narrative Exam Narrative: GENERAL APPEARANCE: Well-nourished, non-toxic, awake and alert, atraumatic, no acute distress. SKIN: Warm, pink, dry, intact, without rashes/lesions/ulcerations. HEAD: Normocephalic, atraumatic, normal hair distribution for gender/age. EYES: Normal conjunctiva, no exudates on lids/lashes. ENT: Nares patent, no circumoral cyanosis, no facial swelling NECK: Supple, trachea midline, painless cervical ROM. LUNGS/CHEST: Lungs CTA bilaterally, non-labored respirations, normal A/P diameter, symmetrical expansion, no chest wall deformity HEART (CV/PV): Regular rate and rhythm without murmur, no peripheral edema, no JVD. ABDOMEN: Soft, non-distended, no guarding. MSK: Normal ROM, no swelling/deformity to bilateral UEs or LEs, moving all extremities without weakness, no cyanosis, spine midline without tenderness, normal curvature. NEURO: Mental Status AAOx4 - alert to person, place, time, events No facial droop, no forehead involvement. Motor: No focal weakness - strength 5/5 in bilateral UEs and LEs, proximal and distal, symmetric. Sensory: sensation intact to light touch globally. Gait normal: patient ambulated without ataxia into ED room. PSYCH: euthymic, cooperative, pleasant, appropriate speech Course Vital Signs Vital signs: Vital Signs Temperature 36.6 C 05/26/24 16:25 Pulse 83 05/26/24 16:25 Respiratory Rate 24 05/26/24 16:25 Blood Pressure 120/83 05/26/24 16:25 Pulse Oximetry 96 05/26/24 16:25 Temperature 36.6 C 05/26/24 16:25 Pulse 83 05/26/24 16:25 Respiratory Rate 24 05/26/24 16:25 Blood Pressure 120/83 05/26/24 16:25 Blood Pressure Position Sitting 05/26/24 16:25 Pulse Oximetry 96 05/26/24 16:25 Oxygen Delivery Method Room Air 05/26/24 16:25 Oxygen Flow Rate 0 05/26/24 16:25 Medical Decision Making This dictation utilizes [id number]-fp-[id number] dictation software and may contain unedited grammatical errors. 23 year-old female presents to ED today by POV/ambulating with a chief complaint of runny nose, ear pain, cough, vomiting, body aches, denies fever with onset for the past 3 days. Quality described as generalized malaise, no radiation to inability to tolerate PO intake, shortness of breath, chest pain, high fevers, loss of hearing. Severity is described as mild to moderate. Palliating factors include nothing specific attempted. Provoking factors include nothing specific. Patients' medical history: Obesity, headache. Family and social history: Noncontributory. Pertinent exam findings / vital signs include lungs CTA, nontoxic vitals, benign posterior oropharynx, no mastoid tenderness, no neck stiffness. Differential / pathologies of concern include viral syndrome, unlikely pneumonia with the patient's multisystem complaints, do not suspect gastroenteritis or intractable nausea or vomiting. Diagnostic studies of: -None, counseled the patient on likely viral syndrome. Interventions of: -Rx for ondansetron to help with symptomatic nausea and vomiting and recommend cold medicines and decongestants. ED Course/Assessment/Plan: 23-year-old otherwise healthy female presents with upper respiratory infection viral syndrome, started with some sinus congestion and mild ear pain now having cough and bodyaches with some vomiting without any overt fever, counseled on benign presentation and symptomatic treatment while we await resolution of viral syndrome, strict return criteria for any worsening. Findings not consistent with respiratory distress, pneumonia, mastoiditis, meningismus. Disposition of viral syndrome. Patient verbalized understanding of the plan and return to ED criteria and engaged in shared decision making. Medical Records Medical records reviewed: Yes I reviewed the patient's medical records. Quality:SDOH Health Related Social Needs: No Data to Display PFSH All Active Problems (Updated 05/26/24 @ 16:43 by CADEN Alvarenga) Viral syndrome (Acute) Colitis (Chronic) Irregular periods/menstrual cycles (Acute) BMI 40.0-44.9, adult (Acute) Headache (Acute) Hypothyroid (Chronic) Obesity (Chronic) Medical History (Updated 05/26/24 @ 16:43 by CADEN Alvarenga) Maternal varicella, non-immune Lactating mother Pain, dental Elevated TSH Pelvic pain Muscle spasm Concussion Mild - one day of headache and being tired Acute left ankle pain Acute pain of left shoulder High BMI BMI 43 Migraine headache without aura resolved 2017 ADHD (attention deficit hyperactivity disorder) no medications after age 15 Surgical History H/O wisdom tooth extraction Family History Mother Bipolar 1 disorder, depressed Father , 45 Anxiety Depression Heart disease Myocardial infarction at age 45 Maternal Grandfather , in his late 70s Alzheimer's dementia Maternal Grandmother , at 69 of lung cancer Lung cancer Paternal Grandfather Type 2 diabetes mellitus Asthma Heart disease Cancer Paternal Grandmother Hyperlipidemia Hypertension Thyroid disease Social History Smoking/Tobacco Use Status: Never Second Hand Exposure: Yes Smoking risk assessment performed?: Yes Alcohol Intake: current Alcohol Intake frequency: holidays/special occasions only Drug use: Never Substance use type: does not use Caregiver/Support person: Yes Foster care: No Household members: other Details: Livs with Grandparents Housing: apartment 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 Pets and animals: Yes Pets and animals: cat(s) and dog(s) Sexually active: Yes Do you think of yourself as: straight/heterosexual Current gender identity: female What type of physical activity do you participate in: walking Seatbelt use: always Helmet use: Yes Drive intox or ride w/intox limo driver: No Firearms in home: Yes Firearms unloaded and locked: Yes Do you feel safe at home: Yes Do you feel safe in your relationship?: Yes Female Reproductive History Menstrual control method: pills History History 2 Para 1 Hx # Term Pregnancies 1 Multiple births 0 Hx # Pregnancies 0 Ectopic pregnancies 0 AB induced 0 Hx Number of Living Children 1 AB spontaneous 1 Past Pregnancies Del. Date GA/Weeks # Preg Succ Route Wgt Sex Labor Lgth Anesth esia Location [facility] 05/12/19 09/26/22 38 No Yes vaginal Male [facility] Delivery Date: 05/12/19 Last Updated by: Saira Alberto CNM pos. PT and bleeding soon after Delivery Date: 09/26/22 Last Updated by: SANTIAOG Mckee
[2024-05-26 16:49] VITALS: BP 120/83; PULSE 83; RESP 24; TEMP 36.6; O2SAT 96
== END 2024-05-26 16:54 | disposition home or self-care (01) ==
PROVIDERS: Emergency Provider Physician Assistant; PCP Nurse Practitioner Family
DX: R05.1 Acute cough (principal); R09.81 Nasal congestion; R11.2 Nausea with vomiting, unspecified; B34.9 Viral infection, unspecified
CPT/HCPCS: 99283

== ENCOUNTER 2024-07-15 14:51 | Outpatient (CLI) | payer OTHER, MEDICAID, SELFPAY ==
--- NOTE | 2024-07-15 | DI.RAD_ITS ---
Exam(s) XR HIP LT COMPLETE AP PELVIS EXAM: XR HIP LT COMPLETE AP PELVIS CLINICAL HISTORY: contusion lt hip S70.02XA. TECHNIQUE: 2D digital imaging was performed of the left hip. Two views were obtained. AP pelvis an d lateral left hip views were obtained. COMPARISON: No exams were available for comparison FINDINGS: BONES: No acute fracture is present. No bony destructive lesion is seen. JOINTS: No dislocation present. SOFT TISSUE: Normal. IMPRESSION: Unremarkable radiographs of the left hip. Unremarkable radiographs of the pelvis DATA REPOSITORY: RADIATION DOSE DELIVERED:
--- NOTE | 2024-07-15 | DI.RAD_ITS ---
Exam(s) XR ANKLE LT COMPLETE EXAM: XR ANKLE LT COMPLETE CLINICAL HISTORY: sprain of lt ankle S93.402A TECHNIQUE: 2D digital imaging was performed of the left ankle. Three images were obtained. AP, lat eral and oblique views were obtained. COMPARISON: No exams were available for comparison FINDINGS: BONES: No acute fracture is present. No bony destructive lesion is seen. There is a plantar calcaneal spur. JOINTS:The ankle mortise is normally aligned. SOFT TISSUE: Normal. IMPRESSION: No acute fracture or dislocation. DATA REPOSITORY: RADIATION DOSE DELIVERED:
== END 2024-07-15 15:11 ==
PROVIDERS: PCP Nurse Practitioner Family; Visit Provider Emergency Medicine Emergency Medical Services
DX: S70.02XD Contusion of left hip, subsequent encounter (principal); X58.XXXD Exposure to other specified factors, subsequent encounter
CPT/HCPCS: 73502; 73610

== ENCOUNTER 2024-08-08 10:09 | Emergency (ER) | payer MEDICAID, SELFPAY ==
[2024-08-08 10:14] VITALS: BP 130/79; PULSE 126; RESP 20; TEMP 38.7
[2024-08-08] MEDS: Acetaminophen 500 MG TAB 1000 MG PO (10:42)
[2024-08-08 10:43] VITALS: BP 130/79; PULSE 126; RESP 20; TEMP 38.7; O2SAT 97
--- NOTE | 2024-08-08 10:45 | DI.RAD_ITS ---
Exam(s) XR CHEST 2V PA LATERAL EXAM: XR CHEST 2V PA LATERAL CLINICAL HISTORY: cough TECHNIQUE: 2D digital imaging was performed of the chest. Two images were obtained. PA and lateral views were obtained. COMPARISON: CR,XR XR CHEST 2V PA LATERAL from 03/21/2024 FINDINGS: MEDIASTINUM: Normal. HEART: Normal. PULMONARY VASCULATURE: Normal. LUNGS: Clear. PLEURAL SPACE: No pleural effusion or pneumothorax. BONE:Within normal limits for the patient's age. OTHER FINDINGS:Normal. IMPRESSION: No acute pulmonary findings. DATA REPOSITORY: RADIATION DOSE DELIVERED:
--- NOTE | 2024-08-08 10:52 | ED.GENADUL_ITS ---
Discharge Plan Disposition Patient Disposition: Home Condition: Stable Discharge Details Clinical Impression: Cough, Influenza A Primary Care Provider: Inga Prince ED Provider: Richard Deras Home Meds and New Rx's Prescriptions: Continued levothyroxine 50 mcg tablet See Rx Instructions .ROUTE .COMPLEX Qty: 90 1RF Dose Instruction: TAKE ONE TABLET BY MOUTH ONCE DAILY Rx Instructions: TAKE ONE TABLET BY MOUTH ONCE DAILY norethindrone (contraceptive) [Gwen-BE] 0.35 mg tablet 0.35 mg PO DAILY Qty: 84 3RF phentermine 15 mg capsule 15 mg PO DAILY Qty: 30 0RF Rx Instructions: must administer 2 hours after breakfast ondansetron 4 mg tablet,disintegrating 4 mg PO Q8H PRN (Reason: nausea and vomiting) Qty: 30 0RF Discharge Instructions Additional Instructions: Your x-ray did not show any concerning findings You are positive for the flu You can take 1000 mg of acetaminophen and 600 mg of ibuprofen every 6 hours as needed If you feel more ill or have difficulty breathing return to the emergency department for reevaluation If not improving this week follow-up with your primary care provider Stand Alone Forms: Work Release [facility] General Mode of arrival: ambulatory . Date/Time Provider Initiated Documentation: 08/08/24 10:20 . Limitations to Documentation: no limitations . Information obtained by: patient . History of Present Illness 23 year old F presents to the emergency department with the chief complaint of body aches, cough, fever, described as moderate, Patient started experiencing this day(s) (1) and it has been constant. No relieving factors improve symptom(s), No exacerbating factors reported . Patient notes cough; denies shortness of breath. Patient did receive the following treatments prior to arrival, none Related Data Home Medications ?Medication ?Instructions ?Recorded ?Confirmed levothyroxine 50 mcg tablet See Rx Instructions .Route 04/15/24 08/08/24 .COMPLEX #90 tabs ondansetron 4 mg disintegrating 4 mg PO Q8H PRN nausea and 05/26/24 08/08/24 tablet vomiting #30 tabs norethindrone (contraceptive) 0.35 0.35 mg PO DAILY #84 tabs 07/15/24 08/08/24 mg tablet (Gwen-BE) phentermine 15 mg capsule 15 mg PO DAILY #30 caps 07/15/24 08/08/24 Previous Rx's ?Medication ?Instructions ?Recorded levothyroxine 50 mcg tablet See Rx Instructions .Route 04/15/24 .COMPLEX #90 tabs ondansetron 4 mg disintegrating 4 mg PO Q8H PRN nausea and 05/26/24 tablet vomiting #30 tabs norethindrone (contraceptive) 0.35 0.35 mg PO DAILY #84 tabs 07/15/24 mg tablet (Gwen-BE) phentermine 15 mg capsule 15 mg PO DAILY #30 caps 07/15/24 Allergies Allergy/AdvReac Type Severity Reaction Status Date / Time amoxicillin Allergy Intermediate skin rash Verified 08/08/24 10:19 Penicillins Allergy Intermediate Skin Rash Verified 08/08/24 10:19 clindamycin Allergy Mild Skin Rash Verified 08/08/24 10:19 General Stated Complaint: RespSymp SAI: 4 Review of Systems All systems reviewed & are unremarkable except as noted in HPI and below Constitutional Constitutional: Reports chills, Reports fever(s) and Denies weakness Cardiovascular Cardiovascular: Denies chest pain and Denies dyspnea Respiratory Respiratory: Reports cough and Denies dyspnea Gastrointestinal Gastrointestinal: Denies abdominal pain, Denies nausea and Denies vomiting Genitourinary Genitourinary: Denies dysuria Neurologic Neurologic: Denies weakness Allergic/Immunologic Allergic/Immunologic: Denies urticaria Exam Const General: no acute distress Orientation: alert [facility] Head: normal to inspection Ears: external ears normal General nose exam: external nose normal Mouth: moist mucous membranes Eyes General: appearance normal, both eyes and all related structures Neck Neck: normal visual inspection Resp Effort & Inspection: normal respiratory effort and able to speak in complete sentences Auscultation: clear to auscultation bilaterally Cardio Rate: regular rate Skin General skin exam: no rashes or lesions noted Neuro General: patient alert and patient oriented x3 Extrem General: normal to inspection Psych Mental Status: mental status grossly normal Course Vital Signs Vital signs: Vital Signs Temperature 38.7 C H 08/08/24 10:14 Pulse 126 H 08/08/24 10:14 Respiratory Rate 20 08/08/24 10:14 Blood Pressure 130/79 08/08/24 10:14 Temperature 38.7 C H 08/08/24 10:43 Temperature Source Temporal Artery Scan 08/08/24 10:43 Pulse 126 H 08/08/24 10:43 Respiratory Rate 20 08/08/24 10:43 Respiratory Effort Normal, Non-Labored 08/08/24 10:43 Respiratory Depth Normal 08/08/24 10:43 Blood Pressure 130/79 08/08/24 10:43 Blood Pressure Position Sitting 08/08/24 10:43 Pulse Oximetry 97 08/08/24 10:43 Oxygen Delivery Method Room Air 08/08/24 10:43 Pain Level 8 08/08/24 10:43 Medical Decision Making 23-year-old female comes in with 1 day of fevers and chills along with a dry cough and bodyaches. 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 She denies any drug use. She is speaking full sentences on arrival, she has noted to be 38.7 on arrival. She has clear lung sounds, no JVD, no leg swelling, no stridor, no drooling. Denies any throat pain. I suspect viral illness, will check a Fluvid and chest x-ray. X-ray negative, she is positive for the flu. She is stable,advised to take as needed ibuprofen and Tylenol, she will follow-up with her PCP if no improving and return precautions given Differential Diagnosis Differential Diagnosis: URI, COVID, flu, pneumonia Quality:SDOH Health Related Social Needs: No Data to Display PFSH All Active Problems (Updated 08/08/24 @ 12:07 by Richard Deras MD) Influenza A (Acute) Cough (Acute) Colitis (Chronic) Irregular periods/menstrual cycles (Acute) BMI 40.0-44.9, adult (Acute) Headache (Acute) Hypothyroid (Chronic) Obesity (Chronic) Medical History (Updated 08/08/24 @ 12:07 by Richard Deras MD) Maternal varicella, non-immune Lactating mother Pain, dental Elevated TSH Pelvic pain Muscle spasm Concussion Mild - one day of headache and being tired Acute left ankle pain Acute pain of left shoulder High BMI BMI 43 Migraine headache without aura resolved 2017 ADHD (attention deficit hyperactivity disorder) no medications after age 15 Surgical History H/O wisdom tooth extraction Family History Mother Bipolar 1 disorder, depressed Father , 45 Anxiety Depression Heart disease Myocardial infarction at age 45 Maternal Grandfather , in his late 70s Alzheimer's dementia Maternal Grandmother , at 69 of lung cancer Lung cancer Paternal Grandfather Type 2 diabetes mellitus Asthma Heart disease Cancer Paternal Grandmother Hyperlipidemia Hypertension Thyroid disease Social History Smoking/Tobacco Use Status: Never Second Hand Exposure: Yes Smoking risk assessment performed?: Yes Alcohol Intake: current Alcohol Intake frequency: holidays/special occasions only Drug use: Never Substance use type: does not use Caregiver/Support person: Yes Foster care: No Household members: other Details: Livs with Grandparents Housing: apartment 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 Pets and animals: Yes Pets and animals: cat(s) and dog(s) Sexually active: Yes Do you think of yourself as: straight/heterosexual Current gender identity: female What type of physical activity do you participate in: walking Seatbelt use: always Helmet use: Yes Drive intox or ride w/intox motor bus driver: No Firearms in home: Yes Firearms unloaded and locked: Yes Do you feel safe at home: Yes Do you feel safe in your relationship?: Yes Female Reproductive History Menstrual control method: pills History History 2 Para 1 Hx # Term Pregnancies 1 Multiple births 0 Hx # Pregnancies 0 Ectopic pregnancies 0 AB induced 0 Hx Number of Living Children 1 AB spontaneous 1 Past Pregnancies Del. Date GA/Weeks # Preg Succ Route Wgt Sex Labor Lgth Anesth esia Location [facility] 05/12/19 09/26/22 38 No Yes vaginal Male PARRIS Maldonado Delivery Date: 05/12/19 Last Updated by: Saira Alberto CNM pos. PT and bleeding soon after Delivery Date: 09/26/22 Last Updated by: SANTIAGO Mckee
[2024-08-08 11:06] LABS: COVID-19 PCR Negative (Negative); Influenza A PCR Positive (Negative); Influenza B PCR Negative (Negative); RSV PCR Negative (Negative); Source Nasopharynx
--- NOTE | 2024-08-08 12:02 | DI.VRAD_ITS ---
PROCEDURE INFORMATION: Exam: XR Chest Exam date and time: 08/08/2024 11:34 AM Age: 23 years old Clinical indication: Cough TECHNIQUE: Imaging protocol: Radiologic exam of the chest. Views: 2 views. Total images: 2 COMPARISON: CR XR CHEST 2V PA LATERAL 03/21/2024 10:10 AM FINDINGS: Lungs: Unremarkable. No consolidation. Pleural spaces: Unremarkable. No pleural effusion. No pneumothorax. Heart/Mediastinum: Unremarkable. No cardiomegaly. Bones/joints: Unremarkable. IMPRESSION: No acute findings. Dictated and Authenticated by: Jr Wayne MD. Orderin Braeden Ramos MD
[2024-08-08 12:18] VITALS: BP 119/77; PULSE 109; RESP 16; TEMP 37.1; O2SAT 95
== END 2024-08-08 13:02 | disposition home or self-care (01) ==
PROVIDERS: Emergency Provider Emergency Medicine; PCP Nurse Practitioner Family
DX: J10.1 Influenza due to other identified influenza virus with other respiratory manifestations (principal); R05.9 Cough, unspecified
CPT/HCPCS: 87637; 99283; 71046

== ENCOUNTER 2024-09-20 19:45 | Emergency (ER) | payer MEDICAID, SELFPAY ==
[2024-09-20 19:48] VITALS: BP 149/103; PULSE 94; RESP 15; TEMP 36.8; O2SAT 98
[2024-09-20 20:14] LABS: Abs Immature Grans 0.06 10^3/uL (0.0-0.06); Absolute Basophil Count 0.04 10^3/uL (0.0-0.2); Absolute Eosinophil Count 0.13 10^3/uL (0.0-0.7); Absolute Monocyte Count 0.55 10^3/uL (0.1-0.8); Basophils % 0.3 %; HCT 39.9 % (36.0-46.0); HGB 12.6 g/dL (11.2-15.7); Immature Grans % 0.4 %; Lymphocytes % 21.2 %; MCH 27.1 pg (27.0-33.0); MCHC 31.6 % (32.0-36.0); MCV 86 fL (80-95); MPV 8.6 fL (8.0-11.0); Monocytes % 4.1 %; Platelet Count 351 10^3/uL (130-400); RBC 4.65 10^6/uL (3.93-5.22); RDW 14.6 % (11.7-14.6); RDW-SD 45.9 fL; WBC 13.42 10^3/uL (4.4-10.8)
[2024-09-20 20:15] LABS: Absolute Lymphocyte Count 2.85 10^3/uL (1.2-3.4)
[2024-09-20 20:30] LABS: ALT 21 U/L (14-59); AST 10 U/L (15-37); Albumin 3.6 g/dL (3.4-5.0); Alkaline Phosphatase 111 U/L (46-116); Anion Gap 9.1 mmol/L (3-11); BUN 11 mg/dL (7-18); Bilirubin, Total 0.2 mg/dL (0.2-1.0); CO2 26.9 mmol/L (21.0-32.0); CREATININE 0.7 mg/dL (0.55-1.02); Calcium 9.5 mg/dL (8.5-10.1); Chloride 104 mmol/L (98-107); Estimated GFR 123.01 (mL/min/1.73m2); Glucose 90 mg/dL (74-106); Potassium 3.5 mmol/L (3.5-5.1); Sodium 140 mmol/L (136-145)
[2024-09-20 20:39] LABS: TSH (W/Ref FT4) 4.32 uIU/mL (0.36-3.74)
[2024-09-20 21:07] LABS: Bilirubin Negative (Negative); Blood Negative (Negative); Clarity Clear (Clear); Glucose Negative (Negative); Ketones Negative (Negative); Leukocyte Esterase Negative (Negative); Nitrite Negative (Negative); Specific Gravity >= 1.030 (1.005-1.025); Urobilinogen 0.2 mg/dL (Up to 0.2); pH 6.5 (5-8)
[2024-09-20 21:16] VITALS: BP 128/83; PULSE 78; RESP 18; O2SAT 97
[2024-09-20 21:53] VITALS: BP 134/84; PULSE 67; RESP 18; O2SAT 100
--- NOTE | 2024-09-20 22:29 | W.ED.GENAD ---
Discharge Plan Disposition Patient Disposition: Home Condition: Stable Discharge Details Clinical Impression: Bleeding in early Primary Care Provider: Inga Prince ED Provider: Cortney Torres Home Meds and New Rx's Prescriptions: Continued levothyroxine 50 mcg tablet See Rx Instructions .ROUTE .COMPLEX Qty: 90 1RF Dose Instruction: TAKE ONE TABLET BY MOUTH ONCE DAILY Rx Instructions: TAKE ONE TABLET BY MOUTH ONCE DAILY norethindrone (contraceptive) [Gwen-BE] 0.35 mg tablet 0.35 mg PO DAILY Qty: 84 3RF phentermine 15 mg capsule 15 mg PO DAILY Qty: 30 0RF Rx Instructions: must administer 2 hours after breakfast [id number] 1 mg tablet 1 tab PO DAILY Discharge Instructions Instructions: Bleeding in Early (DC) Additional Instructions: pelvic rest please plan on having your ultrasound on if your bleeding or pain worsen, please be reevaluated earlier Stand Alone Forms: Work Release Referrals: Cristina Guy MD [ [facility] STAFF PHYSICIAN] - 2 days HPI General Date/Time Provider Initiated Documentation: 09/20/24 19:48. HPI Narrative: 23-year-old female, 7 weeks , presents with vaginal spotting starting this evening. Experienced cramping throughout the day, initially attributed to constipation (no bowel movement for 2 days). Noticed red blood on toilet paper after urination, prompting ED visit. 3, para 1. No additional bleeding, pain, dysuria, fever, chills, nausea, or vomiting. Related Data Home Medications ?Medication ?Instructions ?Recorded ?Confirmed levothyroxine 50 mcg tablet See Rx Instructions .Route 04/15/24 09/20/24 .COMPLEX #90 tabs norethindrone (contraceptive) 0.35 0.35 mg PO DAILY #84 tabs 07/15/24 09/20/24 mg tablet (Gwen-BE) phentermine 15 mg capsule 15 mg PO DAILY #30 caps 07/15/24 09/20/24 [id number] 1 mg 1 tab PO DAILY 09/20/24 09/20/24 tablet Previous Rx's ?Medication ?Instructions ?Recorded levothyroxine 50 mcg tablet See Rx Instructions .Route 04/15/24 .COMPLEX #90 tabs norethindrone (contraceptive) 0.35 0.35 mg PO DAILY #84 tabs 07/15/24 mg tablet (Gwen-BE) phentermine 15 mg capsule 15 mg PO DAILY #30 caps 07/15/24 Allergies Allergy/AdvReac Type Severity Reaction Status Date / Time amoxicillin Allergy Intermediate skin rash Verified 09/20/24 19:50 Penicillins Allergy Intermediate Skin Rash Verified 09/20/24 19:50 clindamycin Allergy Mild Skin Rash Verified 09/20/24 19:50 General Stated Complaint: SOCIAL PROBLEMS SPECIALIST SAI: 3 Exam Narrative Exam Narrative: General Appearance: Alert and oriented, no acute distress. Vital signs: Within normal limits. HEENT: Within normal limits. Respiratory: Within normal limits. Cardiovascular: No peripheral edema. Gastrointestinal: No abdominal tenderness. Skin: Warm and dry, no rash. Neurological: Normal. Course Vital Signs Vital signs: Vital Signs Temperature 36.8 C 09/20/24 19:48 Pulse 94 H 09/20/24 19:48 Respiratory Rate 15 09/20/24 19:48 Blood Pressure 149/103 H 09/20/24 19:48 Pulse Oximetry 98 09/20/24 19:48 Temperature 36.8 C 09/20/24 19:48 Pulse 67 09/20/24 21:53 Respiratory Rate 18 09/20/24 21:53 Blood Pressure 134/84 09/20/24 21:53 Blood Pressure Position Sitting 09/20/24 19:48 Pulse Oximetry 100 09/20/24 21:53 Oxygen Delivery Method Room Air 09/20/24 19:48 Oxygen Flow Rate 0 09/20/24 19:48 Lab/Test Results Lab/Test Results: Laboratory Tests Range/Units 09/20/24 09/20/24 19:57 20:04 WBC (4.4-10.8) 10^3/uL 13.42 H RBC (3.93-5.22) 10^6/uL 4.65 Hgb (11.2-15.7) g/dL 12.6 Hct (36.0-46.0) % 39.9 MCV (80-95) fL 86 MCH (27.0-33.0) pg 27.1 MCHC (32.0-36.0) % 31.6 L RDW (11.7-14.6) % 14.6 Plt Count (130-400) 10^3/uL 351 MPV (8.0-11.0) fL 8.6 Immature Gran % % 0.4 Neutrophils % % 73.0 Lymphocytes % % 21.2 Monocytes % % 4.1 Eosinophils % % 1.0 Basophils % % 0.3 Nucleated RBC % (0.0-0.3) % 0.0 Absolute Neutrophils (1.2-6.7) 10^3/uL 9.80 H Absolute Lymphocytes (1.2-3.4) 10^3/uL 2.85 Absolute Monocytes (0.1-0.8) 10^3/uL 0.55 Absolute Eosinophils (0.0-0.7) 10^3/uL 0.13 Absolute Basophils (0.0-0.2) 10^3/uL 0.04 Sodium (136-145) mmol/L 140 Potassium (3.5-5.1) mmol/L 3.5 Chloride (98-107) mmol/L 104 Carbon Dioxide (21.0-32.0) mmol/L 26.9 Anion Gap (3-11) mmol/L 9.1 BUN (7-18) mg/dL 11 Creatinine (0.55-1.02) mg/dL 0.7 Est GFR (CKD-EPI 2020) (mL/min/1.73m2) 123.01 Glucose (74-106) mg/dL 90 Calcium (8.5-10.1) mg/dL 9.5 Total Bilirubin (0.2-1.0) mg/dL 0.2 AST (15-37) U/L 10 L ALT (14-59) U/L 21 Alkaline Phosphatase (46-116) U/L 111 Total Protein (6.4-8.2) g/dL 8.0 Albumin (3.4-5.0) g/dL 3.6 TSH (0.36-3.74) uIU/mL 4.32 H Beta HCG, Quant (1-3) mIU/mL [id number] H Urine Color (Yellow) Yellow Urine Clarity (Clear) Clear Urine pH (5-8) 6.5 Ur Specific [place] (1.005-1.025) >= 1.030 H Urine Protein (Neg-Trace) mg/dL Negative Urine Ketones (Negative) mg/dL Negative Urine Blood (Negative) Negative Urine Nitrite (Negative) Negative Urine Bilirubin (Negative) Negative Urine Urobilinogen (Up to 0.2) mg/dL 0.2 Ur Leukocyte Esterase (Negative) Negative Urine Glucose (Negative) mg/dL Negative ABO/Rh A Positive Medical Decision Making Quantitative beta-hC,000. CBC: mild leukocytosis (13,000). Blood type: A+. Urinalysis: no infectious etiology. Ultrasound: heart rate 154, intrauterine , no free fluid. Initial Assessment: 23-year-old female, approximately 7 weeks , presents with vaginal spotting and cramping. No current pain, dysuria, fever, chills, nausea, or vomiting. Alert and oriented, in no acute distress. No abdominal or CVA tenderness, no peripheral edema. ED Course: - heart rate of 154 with an intrauterine present without any obvious free fluid. - Beta-hCG level of 56,000. - CBC shows mild leukocytosis of 13,000 with low suspicion for infection. - Urinalysis does not show evidence of infectious etiology. - No additional bleeding throughout the encounter. - Appointment scheduled for an ultrasound on . - Encouraged to engage in pelvic rest until cleared by SOCIAL PROBLEMS SPECIALIST after the appointment on . - Return precautions reviewed and patient expressed understanding. Final Assessment: Vaginal spotting during with a heart rate of 154 and an intrauterine without free fluid. Mild leukocytosis with low suspicion for infection. No additional bleeding noted. Patient advised on pelvic rest and follow-up with SOCIAL PROBLEMS SPECIALIST. Clinical Impression: - Vaginal spotting during Disposition: - Discharge - Follow-Up: Appointment scheduled for an ultrasound on . Patient Education: Encouraged to engage in pelvic rest until cleared by SOCIAL PROBLEMS SPECIALIST. Reviewed return precautions, patient expressed understanding. MDM Components Evaluation: - Number of Differential Diagnoses or Management Options: Vaginal spotting during - Amount and Complexity of Data Reviewed: heart rate, Beta-hCG level, CBC, Urinalysis - Risk of Complication and Morbidity or Mortality: Low suspicion for infection, advised pelvic rest and follow-up with SOCIAL PROBLEMS SPECIALIST. Quality:SDOH Health Related Social Needs: No Data to Display PFSH All Active Problems (Updated 09/20/24 @ 21:43 by CADEN Taveras) Bleeding in early (Acute) Colitis (Chronic) BMI 40.0-44.9, adult (Acute) Headache (Acute) Hypothyroid (Chronic) Obesity (Chronic) Medical History (Updated 09/20/24 @ 21:43 by CADEN Taveras) Pain, dental Elevated TSH Pelvic pain Concussion Mild - one day of headache and being tired High BMI BMI 43 Migraine headache without aura resolved 2017 ADHD (attention deficit hyperactivity disorder) no medications after age 15 Surgical History H/O wisdom tooth extraction Family History Mother Bipolar 1 disorder, depressed Father , 45 Anxiety Depression Heart disease Myocardial infarction at age 45 Maternal Grandfather , in his late 70s Alzheimer's dementia Maternal Grandmother , at 69 of lung cancer Lung cancer Paternal Grandfather Type 2 diabetes mellitus Asthma Heart disease Cancer Paternal Grandmother Hyperlipidemia Hypertension Thyroid disease Social History Smoking/Tobacco Use Status: Never Second Hand Exposure: Yes Smoking risk assessment performed?: Yes Alcohol Intake: current Alcohol Intake frequency: holidays/special occasions only Drug use: Never Substance use type: does not use Caregiver/Support person: Yes Foster care: No Household members: other Details: Livs with Grandparents Housing: apartment 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 Pets and animals: Yes Pets and animals: cat(s) and dog(s) Sexually active: Yes Do you think of yourself as: straight/heterosexual Current gender identity: female What type of physical activity do you participate in: walking Seatbelt use: always Helmet use: Yes Drive intox or ride w/intox pick up driver: No Firearms in home: Yes Firearms unloaded and locked: Yes Do you feel safe at home: Yes Do you feel safe in your relationship?: Yes Female Reproductive History Menstrual control method: pills History History 2 Para 1 Hx # Term Pregnancies 1 Multiple births 0 Hx # Pregnancies 0 Ectopic pregnancies 0 AB induced 0 Hx Number of Living Children 1 AB spontaneous 1 Past Pregnancies Del. Date GA/Weeks # Preg Succ Route Wgt Sex Labor Lgth Anesthesia Location Prov Complic 05/12/19 09/26/22 38 No Yes vaginal Male [facility] Maldonado Delivery Date: 05/12/19 Last Updated by: Saira Alberto CNM pos. PT and bleeding soon after Delivery Date: 09/26/22 Last Updated by: SANTIAGO Mckee
== END 2024-09-20 21:54 | disposition home or self-care (01) ==
PROVIDERS: Emergency Provider Physician Assistant; PCP Nurse Practitioner Family
DX: O20.9 Hemorrhage in early pregnancy, unspecified (principal); Z3A.01 Less than 8 weeks gestation of pregnancy
CPT/HCPCS: 80053; 86900; 86901; 99284; 81003; 84439; 84443; 84702; 85025; 99283

== ENCOUNTER 2024-10-04 13:42 | Outpatient (REF) | payer MEDICAID, SELFPAY ==
--- NOTE | 2024-10-04 11:50 | PAPFT_PTH ---
PATIENT: Lacey Peña LOC: [facility] U#:[id number] AGE/SX: 23/F ROOM: RE10/04/[address]: Tricia Lazo : 2000 BED: DIS: 10/04/2024 SPEC #: [id number] RECD: 10/04/24 16:22 STATUS: PETER RESujit #: [id number] RJ: 10/04/24 11:[address]: Tricia Lazo DEPT: [facility] Cytology RECD BY: Cortney Mcdaniel ENTERED: 10/04/24 16:22 SP TYPE: PAPFT JAVIER DR: Inga Prince, REGISTERED PHARMACY TECHNICIAN Tissues: 1 - CX/ENDOCX FOR PAP SMEARS Procedures: PAP THIN PREP/UVM Screening Comments: [id number] (CHLAMYDIA/GC)
[2024-10-05 12:01] LABS: Chlamydia Result Negative (Negative); GC Result Negative (Negative)
== END 2024-10-04 13:43 | disposition home or self-care (01) ==
LOC: LBN 13:42
PROVIDERS: PCP Nurse Practitioner Family; Visit Provider Advanced Practice Midwife
DX: O20.9 Hemorrhage in early pregnancy, unspecified (principal); Z12.4 Encounter for screening for malignant neoplasm of cervix
CPT/HCPCS: 87491; 87591; 88142; 87480; 87510; 87660

== ENCOUNTER 2024-10-18 03:05 | Outpatient (CLI) | payer MEDICAID, SELFPAY ==
[2024-10-18 15:10] LABS: Panorama Kit Sent via Fed Ex
[2024-10-18 15:13] LABS: Abs Immature Grans 0.04 10^3/uL (0.0-0.06); Absolute Eosinophil Count 0.14 10^3/uL (0.0-0.7); Absolute Lymphocyte Count 2.17 10^3/uL (1.2-3.4); Absolute Monocyte Count 0.41 10^3/uL (0.1-0.8); Basophils % 0.3 %; Eosinophils % 1.2 %; Immature Grans % 0.3 %; Lymphocytes % 18.4 %; MCHC 31.6 % (32.0-36.0); MCV 85 fL (80-95); MPV 8.9 fL (8.0-11.0); Monocytes % 3.5 %; Neutrophils % 76.3 %; Platelet Count 306 10^3/uL (130-400); RBC 4.45 10^6/uL (3.93-5.22); RDW 14.5 % (11.7-14.6); RDW-SD 45.1 fL; WBC 11.81 10^3/uL (4.4-10.8)
[2024-10-18 15:20] LABS: Absolute Basophil Count 0.04 10^3/uL (0.0-0.2); Absolute Neutrophil Count 9.01 10^3/uL (1.2-6.7)
[2024-10-18 16:11] LABS: TSH (W/Ref FT4) 1.86 uIU/mL (0.36-3.74)
[2024-10-18 17:23] LABS: Iron 33 ug/dL (50-170); Total Iron Binding Capacity 314 ug/dL (250-450); Transferrin Sat 11 % (15-50)
[2024-10-18 17:31] LABS: Hemoglobin A1C 5.3 % (<5.7)
[2024-10-18 17:37] LABS: ALT 23 U/L (14-59); AST 10 U/L (15-37); Albumin 3.3 g/dL (3.4-5.0); Alkaline Phosphatase 109 U/L (46-116); Anion Gap 13.2 mmol/L (3-11); BUN 8 mg/dL (7-18); Bilirubin, Total 0.3 mg/dL (0.2-1.0); CO2 22.8 mmol/L (21.0-32.0); CREATININE 0.5 mg/dL (0.55-1.02); Calcium 9.6 mg/dL (8.5-10.1); Chloride 105 mmol/L (98-107); Ferritin 33 ng/mL (8-252); Glucose 75 mg/dL (74-106); Potassium 4.3 mmol/L (3.5-5.1); Sodium 141 mmol/L (136-145)
[2024-10-18 17:41] LABS: Folate > 20.0 ng/mL (8.6-20.0)
[2024-10-19 09:07] LABS: Hepatitis B Surface Ag Negative (Negative)
[2024-10-19 09:34] LABS: Rubella IgG Ab (UVM) Positive (See Note)
[2024-10-19 09:36] LABS: Varicella IgG Antibody Negative (See Note)
[2024-10-19 09:59] LABS: Hepatitis C Ab w Rflx HCV PCR Negative (Negative)
[2024-10-19 10:19] LABS: HIV-1/2 Ag & Ab Screen Negative (Negative)
[2024-10-19 20:58] LABS: Lab Add On Test DONE
[2024-10-20 17:36] LABS: Syphilis IgG w/Reflex Nonreactive (Nonreactive)
[2024-10-21 08:52] LABS: HBs Antibody, Quant 70.9 mIU/mL (See Note); Hepatitis B Surface Ab Positive (See Note)
[2024-10-21 10:21] LABS: Hep B Core Antibody Negative (Negative)
== END 2024-10-18 03:06 | disposition home or self-care (01) ==
LOC: LBO 03:06
PROVIDERS: Nurse Practitioner Family; PCP Nurse Practitioner Family; Visit Provider Advanced Practice Midwife
DX: Z34.91 Encounter for supervision of normal pregnancy, unspecified, first trimester (principal); E03.9 Hypothyroidism, unspecified; E66.9 Obesity, unspecified; Z68.41 Body mass index [BMI] 40.0-44.9, adult; Z11.59 Encounter for screening for other viral diseases
CPT/HCPCS: 36415; 80053; 86704; 86706; 86787; 86803; 86850; 86900; 86901; 87340; 87389; 82728; 82746; 83036; 83540; 83550; 84443; 85025; 86762; 86780

== ENCOUNTER 2024-10-18 15:00 | Outpatient (REF) | payer MEDICAID, SELFPAY | END 2024-10-18 15:01 | disposition home or self-care (01) | LOC: LBN 15:00 | PROVIDERS: PCP Nurse Practitioner Family; Visit Provider Advanced Practice Midwife | DX: Z34.91 Encounter for supervision of normal pregnancy, unspecified, first trimester (principal) | CPT/HCPCS: 87086 ==

== ENCOUNTER 2024-11-05 02:53 | Outpatient (CLI) | payer MEDICAID, SELFPAY ==
[2024-11-05 11:49] LABS: Panorama Kit Sent via Fed Ex
== END 2024-11-05 02:54 | disposition home or self-care (01) ==
LOC: LBO 02:54
PROVIDERS: PCP Nurse Practitioner Family; Visit Provider Advanced Practice Midwife
DX: Z34.90 Encounter for supervision of normal pregnancy, unspecified, unspecified trimester (principal)
CPT/HCPCS: 36415

== ENCOUNTER 2024-11-16 15:41 | Outpatient (REF) | payer MEDICAID, SELFPAY | END 2024-11-16 15:42 | disposition home or self-care (01) | LOC: LBN 15:41 | PROVIDERS: PCP Nurse Practitioner Family; Visit Provider Advanced Practice Midwife | DX: Z34.92 Encounter for supervision of normal pregnancy, unspecified, second trimester (principal); Z3A.15 15 weeks gestation of pregnancy | CPT/HCPCS: 87086 ==

== ENCOUNTER 2024-12-15 01:51 | Outpatient (CLI) | payer MEDICAID, SELFPAY ==
--- NOTE | 2024-12-15 07:30 | DI.US_ITS ---
Exam(s) US OB 2-3 TRIMESTER EXAM: US OB 2-3 TRIMESTER CLINICAL HISTORY: 19 wk anatomy survey,Z34.90. TECHNIQUE: Transabdominal obstetrical ultrasound performed. COMPARISON: US US OB 2-3 TRIMESTER from 05/13/2022 FINDINGS: Number of fetuses: 1 position: VARIED heart rate: 146bpm Placental location: There is a grade 1 posterior placenta. The placental tip is 4 cm from the internet media planner al os. No evidence of previa. Amniotic fluid index: Amount of fluid is within normal limits. ANATOMICAL SURVEY: Within normal limits. BIOMETRIC DATA: BPD: 4.41cm, 19weeks 2days HC: 16.92cm, 19weeks 4days AC: 14.08cm, 19weeks 3days FL: 3.04cm, 19weeks 3days Cisterna magna: 4.4mm Cerebellum: 1.88cm Lateral ventricle: 0.8 cm EFW: 292.75g, 0.65lb, 30.2% Composite Age: 19weeks 3days ESAN: 05/08/2025 Heart Rate: 146bpm ANATOMICAL SURVEY: Four-chambered heart: Unremarkable. RVOT: The right ventricular outflow tract could not be visualized well on the current examination. LVOT: Unremarkable. Left-sided stomach: Unremarkable. urinary bladder: Unremarkable. Bilateral kidneys: Unremarkable. Three-vessel cord: Unremarkable. Cord insertion: Unremarkable. Posterior fossa: Unremarkable. ventricles: Unremarkable. nose/lips: Unremarkable. Palate: Unremarkable. spine: Unremarkable. Two arms and two legs: Unremarkable. IMPRESSION: 1. Single live intrauterine gestation as above. 2. The right ventricular outflow tract could not be well visualized on the current examination. The patient is scheduled to return on 12/22 for hree imaging of the RV OT. 3. Otherwise unremarkable survey. DATA REPOSITORY:
== END 2024-12-15 02:11 ==
LOC: DI 01:51
PROVIDERS: PCP Nurse Practitioner Family; Visit Provider Advanced Practice Midwife
DX: Z34.92 Encounter for supervision of normal pregnancy, unspecified, second trimester (principal); Z3A.19 19 weeks gestation of pregnancy
CPT/HCPCS: 76805

== ENCOUNTER 2024-12-22 02:03 | Outpatient (CLI) | payer MEDICAID, SELFPAY ==
--- NOTE | 2024-12-22 | DI.US_ITS ---
Exam(s) US OB F/U FACIAL/LVOT/RVOT EXAM: US OB F/U FACIAL/LVOT/RVOT CLINICAL HISTORY: Follow Up Survey, RVOT. TECHNIQUE: Transabdominal obstetrical ultrasound performed. COMPARISON: US US OB 2-3 TRIMESTER from 12/15/2024 FINDINGS: A limited examination was performed in order to complete the 19 week anatomic survey. The right ventricular outflow tract was identified on the current examination and is unremarkable. IMPRESSION: 1. Single live intrauterine gestation as above. 2. The right ventricular outflow tract was visualized and is unremarkable. DATA REPOSITORY:
== END 2024-12-22 02:23 ==
LOC: DI 02:04
PROVIDERS: PCP Nurse Practitioner Family; Visit Provider Advanced Practice Midwife
DX: Z34.82 Encounter for supervision of other normal pregnancy, second trimester (principal); Z3A.19 19 weeks gestation of pregnancy
CPT/HCPCS: 76815

== ENCOUNTER 2025-01-15 13:13 | Outpatient (CLI) | payer MEDICAID, SELFPAY ==
[2025-01-15 13:23] VITALS: BP 130/74; PULSE 83; TEMP 36.8
[2025-01-15 13:32] VITALS: BP 130/74; PULSE 83
[2025-01-15 13:53] LABS: Glucose Negative (Negative)
--- NOTE | 2025-01-17 14:41 | W.OBNST ---
Date of service: 01/15/25 Time of Service: 14:42 NST Evaluation Reason for NST Reason for NST Other: Cramping Gestational Age Gestational Age in Weeks and Days: 24 Weeks and 1Days Test and Monitor Explained Test/Monitor Explained: Test Explained and Monitor Explained Vital Signs Blood Pressure: 130/74 Pulse: 83 Temperature: 98.2 F NST Information Date on Monitor: 01/15/25 Time on Monitor: 13:29 Date off Monitor: 01/15/25 Time off Monitor: 13:58 Total Time on Monitor: 29 NST Interventions: PO Hydration NST Evaluation Patient States Movement: Present FHR Baseline: 150 Variability: Moderate 6-25 bpm Accelerations: None Decelerations: None Note Ultrasound Done: N/A. 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 She was experiencing cramping. No cramping palpable or noted on monitor. Normal heart rate. UA with reflex and vaginal pathogen screen taken. She was instructed to go home to rest and continue drinking fluids and call with strong, regular cntractions. Note provided for work. Await lab results. NST Reviewed and Verified by: Saira Alberto
[2025-01-17 14:44] VITALS: BP 130/74; PULSE 83; TEMP 36.8
== END 2025-01-15 14:35 ==
LOC: BCD 13:16 → OBS 13:21
PROVIDERS: PCP Nurse Practitioner Family; Visit Provider Advanced Practice Midwife
DX: O99.891 Other specified diseases and conditions complicating pregnancy (principal); R10.2 Pelvic and perineal pain; Z3A.24 24 weeks gestation of pregnancy
CPT/HCPCS: 59025; 81003; 87480; 87510; 87660

== ENCOUNTER 2025-02-11 01:09 | Outpatient (CLI) | payer MEDICAID, SELFPAY ==
[2025-02-11 10:51] LABS: Abs Immature Grans 0.02 10^3/uL (0.0-0.06); HCT 33.7 % (36.0-46.0); HGB 10.9 g/dL (11.2-15.7); Immature Grans % 0.2 %; MCH 26.5 pg (27.0-33.0); MCHC 32.3 % (32.0-36.0); MCV 82 fL (80-95); MPV 8.9 fL (8.0-11.0); Platelet Count 263 10^3/uL (130-400); RBC 4.11 10^6/uL (3.93-5.22); RDW 15.3 % (11.7-14.6); RDW-SD 45.7 fL; WBC 11.24 10^3/uL (4.4-10.8)
[2025-02-11 11:05] LABS: Glucose,1 Hr (Glucola) 111 mg/dL (80-140)
[2025-02-11 11:19] LABS: TSH (W/Ref FT4) 1.85 uIU/mL (0.36-3.74)
== END 2025-02-11 01:10 | disposition home or self-care (01) ==
LOC: LBO 01:09
PROVIDERS: Advanced Practice Midwife; PCP Nurse Practitioner Family; Visit Provider Advanced Practice Midwife
DX: E03.9 Hypothyroidism, unspecified (principal); Z34.92 Encounter for supervision of normal pregnancy, unspecified, second trimester
CPT/HCPCS: 36415; 82950; 84443; 85025

== ENCOUNTER 2025-03-12 14:20 | Outpatient (CLI) | payer MEDICAID, SELFPAY ==
[2025-03-12 14:44] VITALS: BP 120/76; PULSE 69; TEMP 37.2
[2025-03-12 14:55] VITALS: BP 120/76; PULSE 69; RESP 18; TEMP 37.2
[2025-03-12] MEDS: Acetaminophen 500 MG TAB 1000 MG PO (15:33)
--- NOTE | 2025-03-12 15:42 | W.OBNST ---
Date of service: 03/12/25 Time of Service: 15:42 NST Evaluation Reason for NST Reasons for Nonstress Test: OTHER, SEE COMMENT Reason for NST Other: Discomfort Gestational Age Gestational Age in Weeks and Days: 32 Weeks and 1Days Test and Monitor Explained Test/Monitor Explained: Test Explained, Monitor Explained and Patient Verbalized Understanding Vital Signs Blood Pressure: 120/76 Pulse: 69 Temperature: 99.0 F Urine Results Urine Protein: Negative Urine Ketones: Negative Urine Glucose: Negative Urine Blood: Negative NST Information Date on Monitor: 03/12/25 Time on Monitor: 14:34 Date off Monitor: 03/12/25 Time off Monitor: 15:00 Total Time on Monitor: 26 NST Interventions: PO Hydration Contraction Frequency: None NST Evaluation Patient States Movement: Present FHR Baseline: 135 Variability: Moderate 6-25 bpm Accelerations: 15x15 Decelerations: None NST Results: Reactive Note Ultrasound Done: N/A. NST Note Note: cvx=closed, thick, PPOOP, intact d/c home to rest and hydrate NST Reviewed and Verified by: Jacey Valdez
[2025-03-12 15:43] VITALS: BP 120/76; PULSE 69; TEMP 37.2
== END 2025-03-12 15:37 ==
LOC: BCD 14:22 → OBS 14:44
PROVIDERS: PCP Nurse Practitioner Family; Visit Provider Advanced Practice Midwife
DX: Z3A.32 32 weeks gestation of pregnancy (principal); O47.03 False labor before 37 completed weeks of gestation, third trimester
CPT/HCPCS: 59025

== ENCOUNTER 2025-04-07 00:27 | Outpatient (RCR) | payer MEDICAID, SELFPAY ==
[2025-04-07] MEDS: Normal Saline Flush 10 ML SYR IVP (09:20)
[2025-04-07 09:41] LABS: HCT 36.1 % (36.0-46.0); HGB 11.5 g/dL (11.2-15.7)
== END 2025-05-06 23:59 | disposition home or self-care (01) ==
LOC: INF 00:27
PROVIDERS: PCP Nurse Practitioner Family; Visit Provider Advanced Practice Midwife
DX: O99.019 Anemia complicating pregnancy, unspecified trimester (principal)
CPT/HCPCS: 36415; 85014; 85018

== ENCOUNTER 2025-04-07 11:22 | Outpatient (REF) | payer MEDICAID, SELFPAY | END 2025-04-07 11:23 | disposition home or self-care (01) | LOC: LBN 11:22 | PROVIDERS: PCP Nurse Practitioner Family; Visit Provider Advanced Practice Midwife | DX: Z34.93 Encounter for supervision of normal pregnancy, unspecified, third trimester (principal) | CPT/HCPCS: 87081 ==

== ENCOUNTER 2025-04-28 10:27 | Outpatient (CLI) | payer MEDICAID, SELFPAY ==
[2025-04-28 10:54] VITALS: BP 135/87; PULSE 84; TEMP 36.6
[2025-04-28 12:19] VITALS: BP 135/87; PULSE 84; TEMP 36.6
--- NOTE | 2025-04-28 12:19 | W.OBNST ---
Date of service: 04/28/25 Time of Service: 12:19 NST Evaluation Reason for NST Reasons for Nonstress Test: DECREASED MOVEMENT Gestational Age Gestational Age in Weeks and Days: 38 Weeks and 6Days Test and Monitor Explained Test/Monitor Explained: Test Explained, Monitor Explained and Patient Verbalized Understanding Vital Signs Blood Pressure: 135/87 Pulse: 84 Temperature: 97.9 F Urine Results Urine Protein: Negative Urine Ketones: Negative Urine Glucose: Negative Urine Blood: Negative NST Information Date on Monitor: 04/28/25 Time on Monitor: 10:34 Date off Monitor: 04/28/25 Time off Monitor: 11:08 Total Time on Monitor: 34 NST Interventions: PO Hydration Contraction Frequency: None NST Evaluation Patient States Movement: Present and Decreased FHR Baseline: 125 Variability: Moderate 6-25 bpm Accelerations: 15x15 Decelerations: None NST Results: Reactive Note Ultrasound Done: N/A. NST Note Note: Lacey was seen today for visit. She reports decreased movement. Reactive NST. RTO 1 week. NST Reviewed and Verified by: Saira Alberto
== END 2025-04-28 11:33 ==
LOC: BCD 10:27 → OBS 10:39
PROVIDERS: PCP Nurse Practitioner Family; Visit Provider Advanced Practice Midwife
DX: O36.8131 Decreased fetal movements, third trimester, fetus 1 (principal); Z3A.38 38 weeks gestation of pregnancy
CPT/HCPCS: 59025

== ENCOUNTER 2025-05-09 02:35 | Inpatient (IN) | payer MEDICAID, SELFPAY ==
[2025-05-09] VITALS (232 sets, daily range): BP systolic 109–153; BP diastolic 61–98; PULSE 0–184; RESP 17–18; TEMP 36.5–36.7; O2SAT 89–100; BMI 42.5
--- NOTE | 2025-05-09 02:38 | HPE_ITS ---
Date of service: 05/09/25 Time of Service: 02:38 Assessment and Plan Assessment and plan (1) 40 weeks gestation of : Status: Acute Assessment and plan: A: IUP at 40w3d Active labor Category I monitoring (though initially category II upon arrival to unit) Maternal request for regional anesthesia P: - Admit for labor and delivery - CBC, ABO/Rh - Will plan to notify anesthesia team for epidural once labs are back - Expectant management at this time - Reassess cervix in 3 hours or sooner PRN - Anticipate vaginal delivery OB-HPI Labor/Delivery History of Present Illness Reason for Visit: Labor Chief Complaint: Uterine Contractions. SEAN Calculator Estimated Delivery Date Method Current WG Current Estimate 05/06/25 LMP (Certain) 40w 3d Other Estimates 05/09/25 Ultrasound #1 40w 0d 05/13/25 Ultrasound #2 39w 3d History of Present Expected Delivery Route/Plan - CNM FOB/ - Micheal Wan (2nd child together) BG Kerri Will use nitrous, not sure but may want epidural again, Micheal for labor support Varicella non-immune, accepts vaccines GBS negative Pt requests elective IOL after SEAN, booked for 05/11/25 Specific Issues/Plan 1. Hypothyroidism, TSH 4.32, increased levothyroxine dose from 50 mcg to 75 mcg on 09/23/24 1a. Recheck TSH at initial=1.86 1b. TSH with 28 week labs=1.85 2. BMI 42, Hgb A1C=5.3, 28 week GTT - 111 3. cfDNA low risk female, 1st draw=no results, redrawn 2 wks, CF known negative 4. 2 yo son has autism, nonverbal 5. Colitis, first dx'ed after last preg. Diarrhea and constipation. Takes senna and colace PRN, advised to take it daily. 6. Nausea - taking zofran at bedtime. Not working well, N/V mostly with meals. Will trial Reglan 10 mg TID PRN. 7. Spotting in 1st trimester - ED visit and PCOS exam normal. 8. Desires tubal ligation, 32 wk appt with MD for consent 03/17/2025 9. Mild anemia of preg, poor tolerance of oral iron, start weekly iron infusions at 35 wks until hgb >11 9a. On 04/07 hgb 11.5, no infusion indicated, will p/up Blood Builder and take daily Narrative: Lacey is a 24 year old at 40 weeks 3 days gestation who presents with onset of progressive contractions. Contractions started yesterday around 0800, but only started to become progressive in the last 2-3 hours. Review of Systems Narrative: Constitutional: generally feels well, no fever, no aches, no chills OB: good FM, no VB, no LOF, + CTXs q 5-6 minutes which she primarily feels in her back PFSH All Active Problems (Updated 05/09/25 @ 02:51 by Sally Stokes CNM) 40 weeks gestation of (Acute) Anemia affecting (Acute) Susceptible to varicella (non-immune), currently (Acute) (Acute) Colitis (Chronic) BMI 40.0-44.9, adult (Acute) Headache (Acute) Hypothyroid (Chronic) Obesity (Chronic) Medical History (Updated 05/09/25 @ 02:51 by Sally Stokes CNM) Intestinal cramps Constipation during in second trimester History of miscarriage, currently Cramping affecting , antepartum Pain, dental Elevated TSH Pelvic pain Concussion Mild - one day of headache and being tired High BMI BMI 43 Migraine headache without aura resolved 2017 ADHD (attention deficit hyperactivity disorder) no medications after age 15 Surgical History H/O wisdom tooth extraction Family History Mother Bipolar 1 disorder, depressed Father , 45 Anxiety Depression Heart disease Myocardial infarction at age 45 Maternal Grandfather , in his late 70s Alzheimer's dementia Maternal Grandmother , at 69 of lung cancer Lung cancer Paternal Grandfather Type 2 diabetes mellitus Asthma Heart disease Cancer Paternal Grandmother Hyperlipidemia Hypertension Thyroid disease Social History Smoking/Tobacco Use Status: Never Second Hand Exposure: Yes Smoking risk assessment performed?: Yes Alcohol Intake: current Alcohol Intake frequency: holidays/special occasions only Drug use: Never Substance use type: does not use Caregiver/Support person: Yes Foster care: No Household members: other Details: Livs with Grandparents Housing: apartment 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 Pets and animals: Yes Pets and animals: cat(s) and dog(s) Sexually active: Yes Do you think of yourself as: straight/heterosexual Current gender identity: female What type of physical activity do you participate in: walking Seatbelt use: always Helmet use: Yes Drive intox or ride w/intox package car driver: No Firearms in home: Yes Firearms unloaded and locked: Yes Do you feel safe at home: Yes Do you feel safe in your relationship?: Yes Female Reproductive History Menstrual control method: pills History History 4 Para 1 Hx # Term Pregnancies 1 Multiple births 0 Hx # Pregnancies 0 Ectopic pregnancies 0 AB induced 0 Hx Number of Living Children 1 AB spontaneous 2 Past Pregnancies Del. Date GA/Weeks # Preg Succ Route Wgt Sex Labor Lgth Anesth esia Location [facility] 05/12/19 09/26/22 38 No Yes vaginal 6 lb 5 oz Male 29 hrs regional Joanne Taylor CNM Delivery Date: 05/12/19 Last Updated by: Saira Alberto CNM pos. PT and bleeding soon after Delivery Date: 09/26/22 Last Updated by: Saira Alberto CNM spont labor, epidural at 8-9 cm, nml Derek autism Meds Allergies and Home Medications Allergies Allergy/AdvReac Type Severity Reaction Status Date / Time amoxicillin Allergy Intermediate skin rash Verified 05/05/25 09:42 Penicillins Allergy Intermediate Skin Rash Verified 05/05/25 09:42 clindamycin Allergy Mild Skin Rash Verified 05/05/25 09:42 Home Medications Medication Instructions Recorded Confirmed Type levothyroxine 75 mcg tablet 75 mcg PO DAILY #30 tabs 0 09/23/24 05/05/25 Rx vitamins no.180-ferrous 1 tab PO DAILY #90 ta bs 09/23/24 05/05/25 Rx fumarate 27 mg-folic acid 1 mg tablet ( Plus Vitamin-Mineral) sennosides 8.6 mg tablet (senna) 8.6 mg PO DAILY #30 t abs 12/15/24 05/05/25 Rx docusate sodium 100 mg capsule 100 mg PO BID #60 caps 01/12/25 05/05/25 Rx (Colace) phenazopyridine 200 mg tablet 200 mg PO TID PRN pain 6 doses #6 05/01/25 05/05/25 Rx (Pyridium) tabs Exam Physical Exam Vital signs: Pulse BP 69 129/75 05/09/25 01:58 05/09/25 01:58 Narrative: Constitutional: well-nourished, well-developed, alert, obese Respiratory: effort is unlabored, normal breath sounds bilaterally Cardiovascular: regular rate, normal rhythm, no murmurs, trace bilateral pedal edema bilateral LEXT Gastrointestinal: non-tender to palpation, tone normal without rigidity or guarding, no masses Genitourinary: - external: no inflammation, no lesions - cervix:SVE: 5 / 50% / -2 - uterus: gravid, normal shape, contractions moderate to palpation (about every 5 minutes but not registering well on toco) - perineum: within normal limits - pelvimetry: adequate for EFW Neurologic: clonus absent right and left sides Skin and Subcutaneous Tissue: no rashes, no lesions, no areas of discoloration Fetus: - EFW: 3.2 kg - Presentation: vertex by palpation of saggital suture - FHR: currently baseline 130s, moderate variability, + accels, no recent decels, though initial monitoring was notable for minimal variability and intermittent variable decels Detailed Labor and Delivery Exam Dilation: 5 Effacement (%): 50 station: -2 Escobar Score: Cervical Points Exam 0 1 2 3 Dilation Closed 1-2cm 3-4 cm 5-6cm Effacement 0-30% 40-50% 60-70% 80% Consistency Firm Medium Soft Station -3 -2 -1,0 +1,+2 Position Posterior Mid Anterior Risk Assessment Risk for Shoulder Dystocia Historical/Initial OB: POSITIVE FOR: Pre- BMI>30; NEGATIVE FOR: Pelvic Abnormality, Previous Shoulder Dystocia or Previous Macrosomia Risk for Pre-Eclampsia Date Initiated/Initials: not indicated, JK Yes, if one or more: NEGATIVE FOR: Hx Pre-E/Gest HTN, Chronic HTN, Multiple Gestation, Pre-gestational DM, Renal Disease, Systemic Lupus or APA Syndrome Yes, if 2 or more: POSITIVE FOR: BMI>30; NEGATIVE FOR: Nulliparity, Age>= 35 yrs, >10yr btwn pregnancies, ethinicty, Mother/Sister w/ Pre-E or Previous IUGR Risk for Post- Hemorrhage Initial: NEGATIVE FOR: Multiple Gestation, Previous PPH, Known Clotting Deficiency, Grand Multiparity or Anticoagulation Counseled re: Active Management: Yes Risks Reviewed Risks Reviewed Upon Admission: Yes
[2025-05-09] MEDS: Calcium Carbonate *TUMS* 500 MG CHEW 1000 MG PO (02:40)
[2025-05-09 03:22] LABS: Abs Immature Grans 0.08 10^3/uL (0.0-0.06); HCT 36.5 % (36.0-46.0); HGB 11.4 g/dL (11.2-15.7); Immature Grans % 0.6 %; MCH 25.4 pg (27.0-33.0); MCHC 31.2 % (32.0-36.0); MCV 81 fL (80-95); MPV 9.2 fL (8.0-11.0); Platelet Count 246 10^3/uL (130-400); RBC 4.49 10^6/uL (3.93-5.22); RDW 14.9 % (11.7-14.6); RDW-SD 43.3 fL; WBC 14.12 10^3/uL (4.4-10.8)
[2025-05-09] MEDS: Lactated Ringers 500 ML IV (03:40)
[2025-05-09] MEDS: Normal Saline Flush 10 ML SYR IVP (03:51)
--- NOTE | 2025-05-09 04:10 | ANES.PREOP_ITS ---
General Info Date of Service Date Performed: 05/09/25 Height: 5 ft 4 in Weight: 112.491 kg Body Mass Index (BMI): 42.5 Meds Allergies and Home Medications Allergies Allergy/AdvReac Type Severity Reaction Status Date / Time amoxicillin Allergy Intermediate skin rash Verified 05/05/25 09:42 Penicillins Allergy Intermediate Skin Rash Verified 05/05/25 09:42 clindamycin Allergy Mild Skin Rash Verified 05/05/25 09:42 Home Medication Medication Instructions Recorded levothyroxine 75 mcg tablet 75 mcg PO DAILY #30 tabs 0 09/23/24 vitamins no.180-ferrous 1 tab PO DAILY #90 ta bs 09/23/24 fumarate 27 mg-folic acid 1 mg tablet ( Plus Vitamin-Mineral) sennosides 8.6 mg tablet (senna) 8.6 mg PO DAILY #30 t abs 12/15/24 docusate sodium 100 mg capsule 100 mg PO BID #60 caps 01/12/25 (Colace) phenazopyridine 200 mg tablet 200 mg PO TID PRN pain 6 doses #6 05/01/25 (Pyridium) tabs Current Visit Medications: Current Medications Generic Name Dose Route Start Last Admin Trade Name Freq PRN Reason Stop Dose Admin Calcium Carbonate 1,000 mg 05/09/25 03:01 05/09/25 02:40 Calcium Carbonate *Tums* 500 Mg Chew PO 1,000 mg QID PRN PRN Administration Fentanyl/Ropivacaine 200 ml 05/09/25 04:00 Fentanyl/Ropivacaine 2 Mcg/Ml And 0.1% 200 Ml Cadd Cassette EP DIRECTED WISAM Ringer's Solution 500 mls @ 500 mls/hr 05/09/25 03:52 IV 05/09/25 04:51 BOLUS ONE IV Miscellaneous Supplies 1 each 05/09/25 02:45 Iv Access IV DIRECTED WISAM Levothyroxine Sodium 75 mcg 05/09/25 06:00 Levothyroxine 75 Mcg Tab PO DAILY@0600 WISAM Sodium Chloride 0 ml 05/09/25 02:35 05/09/25 03:51 Normal Saline Flush 10 Ml Syr IVP 10 ml PRN PRN Administration Sodium Chloride 0 ml 05/09/25 08:30 Normal Saline Flush 10 Ml Syr IVP BID WISAM Sodium Chloride 0 ml 05/09/25 02:35 Normal Saline 10 Ml Vial IJ DIRECTED PRN PFSH Active Problems Active Problems: Problem Status Onset Code 40 weeks gestation of Acute Z3A.40 Anemia affecting Acute O99.019 Susceptible to varicella (non-immune), currently Acute O09.899, Z28.39 Acute Z34.90 Colitis Chronic K52.9 BMI 40.0-44.9, adult Acute Z68.41 Headache Acute R51.9 Hypothyroid Chronic E03.9 Obesity Chronic E66.9 Medical History Medical History (Updated 05/09/25 @ 02:51 by Sally Stokes CNM) Intestinal cramps Constipation during in second trimester History of miscarriage, currently Cramping affecting , antepartum Pain, dental Elevated TSH Pelvic pain Concussion Mild - one day of headache and being tired High BMI BMI 43 Migraine headache without aura resolved 2017 ADHD (attention deficit hyperactivity disorder) no medications after age 15 Surgical History Surgical History H/O wisdom tooth extraction Tobacco Smoking/Tobacco Use Status: Never Passive smoking exposure: No Second hand exposure: Yes Alcohol Alcohol Intake: current Alcohol intake frequency: holidays/special occasions only Substance Use Substance use: Never Substance use type: does not use Prental History History 2 4 Para 1 Hx # Term Pregnancies 1 Multiple births 0 Hx # Pregnancies 0 Ectopic pregnancies 0 AB induced 0 Hx Number of Living Children 1 AB spontaneous 2 Past Pregnancies Del. Date GA/Weeks # Preg Succ Route Wgt Sex Labor Lgth Anesth esia Location [facility] 05/12/19 09/26/22 38 No Yes vaginal 2863.302 g Male 29 hrs regional PARRIS Maldonado Delivery Date: 05/12/19 Last Updated by: Saira Alberto CNM pos. PT and bleeding soon after Delivery Date: 09/26/22 Last Updated by: Saira Alberto CNM spont labor, epidural at 8-9 cm, nml Derek autism Vital Signs and Lab Results Vital Signs Most Recent Vital Signs in EMR: Most Recent Vital Signs Pulse BP 69 129/75 05/09/25 03:04 05/09/25 03:04 Lab Results 05/09/25 03:13 Blood Type / Crossmatch: 2 Antibody Screen NEGATIVE Today Complete Blood Count: 2 WBC, (4.4-10.8) 14.12 10^3/uL H Today, 03:13 RBC, (3.93-5.22) 4.49 10^6/uL Today, 03:13 Hgb, (11.2-15.7) 11.4 g/dL Today, 03:13 Hct, (36.0-46.0) 36.5 % Today, 03:13 Plt Count, (130-400) 246 10^3/uL Today, 03:13 Anesthesia Assessment and Plan Anesthesia History Personal History: No History of Anesthesia Complications Family History: No Family History of Anesthesia Complications Exercise Tolerance Exercise Tolerance: Metabolic Equivalents>4 Cardiac & Pulmonary Exam Cardiac Exam: Normal S1/S2 Heart Sounds Pulmonary Exam: Clear Bilateral Breath Sounds Implantable Cardiac Device Does patient have a Pacemaker or an ICD?: No Airway Exam Known Difficult Airway: No Mallampati Class: 3 Mouth Opening: Normal (> 3cm) Thyromental Distance: Greater than 3 cm Neck Range of Motion: Full ROM Neck Circumference: Thick Teeth Condition: Generalized Poor Dentition ASA Classification ASA Score: ASA 3 Emergency Case?: No NPO Status NPO Status: Full Stomach Status Status: Confirmed Anesthesia Plan Resuscitation Status: Full Code Anesthesia Technique: Epidural Anesthesia Airway Planned: Natural Airway Pain Management: Epidural Monitors Used: Standard Monitors Preoperative Comments:: 24 yo at 40 wks Sig PMHx: hypothyroid (on replacement), ADHD. Never smoker. plt 246 Previous Anes: - epidural, 2 attempts, ZOË 8 cm, catheter at 14 cm. States catheter worked well.
--- NOTE | 2025-05-09 05:08 | ANES.NEUR_ITS ---
Epidural/Spinal Catheter Date Performed: 05/09/25 Procedure Start: 04:30 Procedure Stop: 04:40 Requesting Provider: Sally Stokes Procedure Location: Emergency Department Reason Performed: Labor Epidural Standard Monitors Applied: ECG, Blood Pressure and SpO2 Patient Position: Sitting Sedation Given (Indicate Dose Given): No Sedation given Patient Mental Status: Awake Sterility: Hand Hygiene, Surgical Cap, Surgical Mask, Sterile Gloves and Chlorhexidine Procedure Location: L3-L4 Interspace Epidural Needle: Tuohy 17 Guage Needle Length: 3.5 Inch Needle Approach: Midline Epidural Procedure: ZOË to Saline Used Catheter Placed?: Catheter Placed Test Dose (Indicate Dose Given): 5ml 1.5% Lidocaine with 1:200K Epinephrine Given and Negative Test Dose Loss of Resis tance Depth (cm): 6 Catheter depth at skin (cm): 12 Dressing: Sorbaview Dressing Placed, Mastisol Used and Dressing reinforced with Tape Epidural Provider Bolus (Indicate Dose Given): Total Ropivacaine 0.1% with Fentanyl 2mcg/ml Given from pump. (ml) Dose:: 7 mL Additives (Indicate Dose Given ): None Infusion Medication: Medication Infusion Began Medication Infusion: Ropivacaine 0.1% with Fentanyl 2mcg/ml Maintenance Infusion Rate (ml/hour): 10 PCEA Bolus Dose (ml): 5 Block Level: N/A Paresthesia: None Ultrasound: Used to mary site Number of Attempts (See previous attempts in note section): 1 Procedure Tolerated: No Complications Procedure Outcome: Successful Procedure Comment:: Straight forward placement. After loading dose states that everything feels equal. Was educated on PCEA, and PRNs. Encouraged to reach out with any questio ns or concerns. Performed By: Zeeshan Daley
[2025-05-09] MEDS: FentaNYL/ROPIvacaine 2 mcg/ml and 0.1% 200 ML CADD Cassette EP (05:20)
[2025-05-09] MEDS: Metoclopramide 10 MG TAB PO (06:45)
--- NOTE | 2025-05-09 06:48 | W.PM.OBNL1 ---
Date of service: 05/09/25 Time of Service: 06:48 Pelvic Exam Dilation: 6 Effacement (%): 60 station: -2 Assessment and Plan Assessment and plan (1) 40 weeks gestation of : Status: Acute Assessment and plan: A: IUP at 40w3d Active labor Category I surveillance Regional anesthesia in use P: - Discussed AROM as a means to facilitate labor, including potential risks of cord prolapse and infection. She will consider this and let us know if she is open to it, otherwise will plan to revisit it at her next cervical check if typical progress has not been made. - She declines placement of a mike catheter for bladder care, as she was able to void by bedside commode with an epidural during her last labor and this is what she is hoping to do again - Consider use of Rohini Novii if contractions are not able to trace well - Care to be assumed by PARRIS Funez at 0800 Objective Abnormal lab results 05/09/25 Range/Units 03:13 WBC 14.12 H (4.4-10.8) 10^3/uL MCH 25.4 L (27.0-33.0) pg MCHC 31.2 L (32.0-36.0) % RDW 14.9 H (11.7-14.6) % Absolute Neutrophils 11.17 H (1.2-6.7) 10^3/uL Pulse BP Pulse Ox 92 H 143/71 H 97 05/09/25 06:46 05/09/25 06:21 05/09/25 06:46 Laboratory Results WBC 14.12 10^3/uL (4.4-10.8) H 05/09/25 03:13 RBC 4.49 10^6/uL (3.93-5.22) 05/09/25 03:13 Hgb 11.4 g/dL (11.2-15.7) 05/09/25 03:13 Hct 36.5 % (36.0-46.0) 05/09/25 03:13 MCV 81 fL (80-95) 05/09/25 03:13 MCH 25.4 pg (27.0-33.0) L 05/09/25 03:13 MCHC 31.2 % (32.0-36.0) L 05/09/25 03:13 RDW 14.9 % (11.7-14.6) H 05/09/25 03:13 Plt Count 246 10^3/uL (130-400) 05/09/25 03:13 MPV 9.2 fL (8.0-11.0) 05/09/25 03:13 Immature Gran % 0.6 % 05/09/25 03:13 Neutrophils % 79.1 % 05/09/25 03:13 Lymphocytes % 15.9 % 05/09/25 03:13 Monocytes % 3.2 % 05/09/25 03:13 Eosinophils % 1.0 % 05/09/25 03:13 Basophils % 0.2 % 05/09/25 03:13 Nucleated RBC % 0.0 % (0.0-0.3) 05/09/25 03:13 Absolute Neutrophils 11.17 10^3/uL (1.2-6.7) H 05/09/25 03:13 Absolute Lymphocytes 2.25 10^3/uL (1.2-3.4) 05/09/25 03:13 Absolute Monocytes 0.45 10^3/uL (0.1-0.8) 05/09/25 03:13 Absolute Eosinophils 0.14 10^3/uL (0.0-0.7) 05/09/25 03:13 Absolute Basophils 0.03 10^3/uL (0.0-0.2) 05/09/25 03:13 ABO/Rh A Positive 05/09/25 03:13 Antibody Screen NEGATIVE 05/09/25 03:13 Objective Narrative Objective Narrative: VS: 1st elevated blood pressure now, but taken during a contraction CTXs: moderate to palpation, q 3-5 minutes (difficult to trace consistently on toco) FHTs: 140s, moderate variability, + accels, no decels SVE: 6cm / 60% / -2 Subjective Interval history since last seen: Lacey is comfortable since placement of epidural. She has not been able to sleep much since placement. Results Hemoglobin/Hematocrit: Hgb 11.4 g/dL (11.2-15.7) 05/09/25 03:13 Hct 36.5 % (36.0-46.0) 05/09/25 03:13 Abnormal Lab Findings: Abnormal Labs 05/09/25 03:13 WBC 14.12 H MCH 25.4 L MCHC 31.2 L RDW 14.9 H Absolute Neutrophils 11.17 H
--- NOTE | 2025-05-09 07:06 | W.OBNST ---
Date of service: 05/09/25 Time of Service: 07:06 NST Evaluation Reason for NST Reasons for Nonstress Test: OTHER, SEE COMMENT Reason for NST Other: rule out labor Gestational Age Gestational Age in Weeks and Days: 40 Weeks and 3Days Test and Monitor Explained Test/Monitor Explained: Test Explained, Monitor Explained and Patient Verbalized Understanding Vital Signs Blood Pressure: 129/75 Pulse: 69 Temperature: 98.1 F Weight: 248 lb NST Information Date on Monitor: 05/09/25 Time on Monitor: 01:45 NST Interventions: PO Hydration Contraction Frequency: q6 NST Evaluation Patient States Movement: Present FHR Baseline: 135 Variability: Moderate 6-25 bpm Accelerations: 15x15 Decelerations: None NST Results: Reactive Note Ultrasound Done: N/A. NST Note Note: Initial NST is non-reactive so will plan continuous monitoring. NST Reviewed and Verified by: Sally Stokes
[2025-05-09] MEDS: Levothyroxine 75 MCG TAB PO (07:47)
[2025-05-09] MEDS: Naloxone 0.4 MG/ML VIAL IVP (08:25)
[2025-05-09] MEDS: diphenhydrAMINE 50 MG/ML VIAL 12.5 MG IVP (08:30)
--- NOTE | 2025-05-09 08:36 | PGE_ITS ---
Date of service: 05/09/25 Time of Service: 08:36 Pelvic Exam Dilation: 4 Effacement (%): 80 station: -2 Cervix Position: mid Consistency: soft Vaginal Exam Presentation: Cephalic Contractions Monitor Mode: External Contraction Frequency(min): every 5 Contraction Duration(sec): 60 Intensity: Moderate/Strong Fetus A Monitor: External (US) Heart Rate Baseline: 130 Presentation: Cephalic Variability: Moderate (6-25 BPM) Categories: Category I FHR Rhythm: Regular Accelerations: 15 X 15 Decelerations: None Amniotic Membrane Status: Intact Assessment and Plan Assessment and plan (1) Spontaneous onset of labor: Status: Acute Assessment and plan: Discussed the option of pitocin augmentation with Lacey. She agrees. Straight cath offered and accepted. I also offered AROM which she declines at this time. Will consider when appropriate. Will encourage rest and reassess in 2-3 hours or when appropriate. Objective Abnormal lab results 05/09/25 Range/Units 03:13 WBC 14.12 H (4.4-10.8) 10^3/uL MCH 25.4 L (27.0-33.0) pg MCHC 31.2 L (32.0-36.0) % RDW 14.9 H (11.7-14.6) % Absolute Neutrophils 11.17 H (1.2-6.7) 10^3/uL Pulse BP Pulse Ox 78 132/76 98 05/09/25 08:35 05/09/25 08:21 05/09/25 08:35 Laboratory Results WBC 14.12 10^3/uL (4.4-10.8) H 05/09/25 03:13 RBC 4.49 10^6/uL (3.93-5.22) 05/09/25 03:13 Hgb 11.4 g/dL (11.2-15.7) 05/09/25 03:13 Hct 36.5 % (36.0-46.0) 05/09/25 03:13 MCV 81 fL (80-95) 05/09/25 03:13 MCH 25.4 pg (27.0-33.0) L 05/09/25 03:13 MCHC 31.2 % (32.0-36.0) L 05/09/25 03:13 RDW 14.9 % (11.7-14.6) H 05/09/25 03:13 Plt Count 246 10^3/uL (130-400) 05/09/25 03:13 MPV 9.2 fL (8.0-11.0) 05/09/25 03:13 Immature Gran % 0.6 % 05/09/25 03:13 Neutrophils % 79.1 % 05/09/25 03:13 Lymphocytes % 15.9 % 05/09/25 03:13 Monocytes % 3.2 % 05/09/25 03:13 Eosinophils % 1.0 % 05/09/25 03:13 Basophils % 0.2 % 05/09/25 03:13 Nucleated RBC % 0.0 % (0.0-0.3) 05/09/25 03:13 Absolute Neutrophils 11.17 10^3/uL (1.2-6.7) H 05/09/25 03:13 Absolute Lymphocytes 2.25 10^3/uL (1.2-3.4) 05/09/25 03:13 Absolute Monocytes 0.45 10^3/uL (0.1-0.8) 05/09/25 03:13 Absolute Eosinophils 0.14 10^3/uL (0.0-0.7) 05/09/25 03:13 Absolute Basophils 0.03 10^3/uL (0.0-0.2) 05/09/25 03:13 ABO/Rh A Positive 05/09/25 03:13 Antibody Screen NEGATIVE 05/09/25 03:13 Vital Signs Reviewed: Yes Subjective Patient Reports: No new Complaints Interval history since last seen: Lacey is resting comfortably with epidural. She has not rested because she complains of severe itching and per FAMILY INTERVENTION SPECIALIST, narcan and benadryl given. Results Hemoglobin/Hematocrit: Hgb 11.4 g/dL (11.2-15.7) 05/09/25 03:13 Hct 36.5 % (36.0-46.0) 05/09/25 03:13 Abnormal Lab Findings: Abnormal Labs 05/09/25 03:13 WBC 14.12 H MCH 25.4 L MCHC 31.2 L RDW 14.9 H Absolute Neutrophils 11.17 H
[2025-05-09] MEDS: Lactated Ringers 1,000 ML 125 ML IV (09:01)
[2025-05-09] MEDS: Oxytocin/Normal Saline 30 UNIT/500 ML BAG 2 UNITS IV (09:29)
--- NOTE | 2025-05-09 14:33 | W.PM.OBNL1 ---
Date of service: 05/09/25 Time of Service: 11:00 Pelvic Exam Dilation: 7 Effacement (%): 100 station: -1 Cervix Position: mid Consistency: soft Vaginal Exam Presentation: Cephalic Contractions Monitor Mode: External Contraction Frequency(min): every 3 min Contraction Duration(sec): 60 Intensity: Strong Fetus A Monitor: External (US) Heart Rate Baseline: 120 Presentation: Cephalic Variability: Moderate (6-25 BPM) Categories: Category I FHR Rhythm: Regular Accelerations: 15 X 15 Decelerations: Variable Recurrence: Intermittent Amniotic Membrane Status: Intact Assessment Note: declines AROM at this time Assessment and Plan Assessment and plan (1) Spontaneous onset of labor: Status: Acute Assessment and plan: Expectant management. Anticipate Objective Abnormal lab results 05/09/25 Range/Units 03:13 WBC 14.12 H (4.4-10.8) 10^3/uL MCH 25.4 L (27.0-33.0) pg MCHC 31.2 L (32.0-36.0) % RDW 14.9 H (11.7-14.6) % Absolute Neutrophils 11.17 H (1.2-6.7) 10^3/uL Pulse BP Pulse Ox 94 H 143/72 H 99 05/09/25 14:32 05/09/25 14:32 05/09/25 12:55 Laboratory Results WBC 14.12 10^3/uL (4.4-10.8) H 05/09/25 03:13 RBC 4.49 10^6/uL (3.93-5.22) 05/09/25 03:13 Hgb 11.4 g/dL (11.2-15.7) 05/09/25 03:13 Hct 36.5 % (36.0-46.0) 05/09/25 03:13 MCV 81 fL (80-95) 05/09/25 03:13 MCH 25.4 pg (27.0-33.0) L 05/09/25 03:13 MCHC 31.2 % (32.0-36.0) L 05/09/25 03:13 RDW 14.9 % (11.7-14.6) H 05/09/25 03:13 Plt Count 246 10^3/uL (130-400) 05/09/25 03:13 MPV 9.2 fL (8.0-11.0) 05/09/25 03:13 Immature Gran % 0.6 % 05/09/25 03:13 Neutrophils % 79.1 % 05/09/25 03:13 Lymphocytes % 15.9 % 05/09/25 03:13 Monocytes % 3.2 % 05/09/25 03:13 Eosinophils % 1.0 % 05/09/25 03:13 Basophils % 0.2 % 05/09/25 03:13 Nucleated RBC % 0.0 % (0.0-0.3) 05/09/25 03:13 Absolute Neutrophils 11.17 10^3/uL (1.2-6.7) H 05/09/25 03:13 Absolute Lymphocytes 2.25 10^3/uL (1.2-3.4) 05/09/25 03:13 Absolute Monocytes 0.45 10^3/uL (0.1-0.8) 05/09/25 03:13 Absolute Eosinophils 0.14 10^3/uL (0.0-0.7) 05/09/25 03:13 Absolute Basophils 0.03 10^3/uL (0.0-0.2) 05/09/25 03:13 ABO/Rh A Positive 05/09/25 03:13 Antibody Screen NEGATIVE 05/09/25 03:13 Vital Signs Reviewed: Yes Objective Narrative Objective Narrative: Pitocin at 6 mu.min Subjective Patient Reports: New Complaints Interval history since last seen: Lacey is experiencing pelvic pressure. Results Hemoglobin/Hematocrit: Hgb 11.4 g/dL (11.2-15.7) 05/09/25 03:13 Hct 36.5 % (36.0-46.0) 05/09/25 03:13 Abnormal Lab Findings: Abnormal Labs 05/09/25 03:13 WBC 14.12 H MCH 25.4 L MCHC 31.2 L RDW 14.9 H Absolute Neutrophils 11.17 H
--- NOTE | 2025-05-09 14:35 | W.OBDELIVERY ---
Date of service: 05/09/25 Time of Service: 14:36 OB Labor/ Delivery Information Baby A Delivery Delivery Method: Spontaneaous Presentation: Cephalic Vertex Position: Left Occipital Anterior Cord Description-Baby A: 3 Vessels Cord Description Comment: tight nuchal cord x 1 Amniotic Fluid: Clear Estimated Blood Loss: 250 Delivery Outcome: Liveborn Transferred: Remains with Mother Note: RANDEE occurred for a large amount of clear fluid. FHTs 120-130 during first stage of labor with variable decelerations associated with contractions. FHTs 120s in second stage. She progressed to full dilation and began pushing. Second stage huddle was done. Spontaneous delivery of female delivered in ERIKA position. A tight nuchal cord was encountered and the baby was delivered with somersault maneuver. Baby was placed on mother's abdomen and dried and stimulated. Spontaneous cry. Cord was clamped and cut by the baby's father . The placenta delivered spontaneously and appears to by intact with a three vessel cord. Pitocin 30 units IV was administered after delivery of the placenta. The perineum was inspected and there was a small 2nd degree laceration. The baby did breastfeed. After delivery, Mother and baby and father of the baby were stable and bonding well in the delivery room and there were no complications. Providers Nurse [employer] Administrator: Saira Alberto Nurse: Mariana Hernandez Labor/Delivery Information Number of Babies in Womb: 1 Steroids Given: None Reason Steroids Not Administered: N/A Group Beta Strep: Negative Antibiotics Administered: No Rubella Status: Immune Blood Type: A+ Varicella Immunity: Nonimmune Born En Route: No Maternal Complications: None Shoulder Dystocia: No Stages of Labor Onset of Labor Date: 05/08/25 Onset of Labor Time: 22:00 Complete Dilatation Date: 05/09/25 Complete Dilatation Time: 12:25 Labor - Stage 1 Duration: 14 hours and 25 minutes ROM Baby A: 05/09/25 ROM Baby A: 12:25 ROM Total Time- Baby A: [id number] Delivery Date-Baby A: 05/09/25 Infant Delivery Time-Baby A: 12:55 Labor Stage 2 Duration: 30 minutes Placenta Delivery Date-Baby A: 05/09/25 Placenta Delivery Time-Baby A: 12:57 Labor-Stage 3 Duration: 2 minutes Total Length of Labor-Baby A: 14 hours and 55 minutes Placenta Cultured: No Placenta Status: Delivered Baby A Gender: Female Gestational Status: Term (39-41.6 wks) Gestational Age in Weeks/Days: 40 Weeks and 3 Days Score-1 Minute Interval(Baby A) Heart Rate-1 minute: 100 BPM or Greater Respiratory Effort- 1 minute: Spontaneous/Strong Cry Muscle Tone-1 minute: Active Movement Reflex Response-1 minute: Minimal Response Color-1 minute: Bluish Hands or Feet Total Score-1 minute: 8 Score-5 Minute Interval(Baby A) Heart Rate- 5 minute: 100 BPM or Greater Respiratory Effort-5 minute: Spontaneous/Strong Cry Muscle Tone-5 minute: Active Movement Reflex Response-5 minute: Prompt Response Color-5 minute: Bluish Hands or Feet Total Score- 5 minute: 9 Interventions Repair of Laceration Type: Perineal, Laceration Extension: Second Degree. Sponge Count Correct: No Sponges Placed in Vagina, Sharp Count Correct: Yes. Laceration Repair Note: repair with 3-0 vicryl suture under epidural analgesia
[2025-05-09] MEDS: Ibuprofen 600 MG TAB PO ×2 (15:39→22:10)
[2025-05-09] MEDS: Acetaminophen 325 MG TAB 650 MG PO ×2 (15:39→22:10)
--- NOTE | 2025-05-09 17:06 | W.ANESPOSTOP ---
Postoperative Evaluation Date, Time and Location Date Performed: 05/09/25 Time Performed: 15:42 Patient Location: Obstetrics Vital Signs Most Recent Imported Vital Signs: Most Recent Vital Signs Temp Pulse BP Pulse Ox 36.6 C 95 H 136/81 99 05/09/25 15:39 05/09/25 15:59 05/09/25 15:59 05/09/25 12:55 Pain Score Most Recent Pain Score: Most Recent Pain Score Pain Level 1 05/09/25 15:39 Assessment Mental Status: Awake (Alert & Oriented to Patient Baseline) Airway and Respiratory Function: Patent airway with normal (patient baseline) respiratory exam Cardiovascular Function: Hemodynamically Stable Hydration Status: Adequately Hydrated Nausea & Vomiting: No Nausea or Vomiting Pain: Pain is tolerable per patient Peripheral Nerve Block: Patient did not receive a nerve block
[2025-05-09] MEDS: Docusate Sodium 100 MG CAP PO (22:10)
[2025-05-10] VITALS (7 sets, daily range): BP systolic 126–138; BP diastolic 72–84; PULSE 18–84; RESP 16; TEMP 36.6–36.7
[2025-05-10] MEDS: Levothyroxine 75 MCG TAB PO (06:15)
[2025-05-10] MEDS: Ibuprofen 600 MG TAB PO ×2 (06:15→15:13)
[2025-05-10] MEDS: Acetaminophen 325 MG TAB 650 MG PO ×3 (06:15→15:12)
--- NOTE | 2025-05-10 07:38 | W.PM.OBPNV1 ---
Date of service: 05/10/25 Time of Service: 07:38 Assessment and Plan Assessment and plan (1) Term : Status: Acute Assessment and plan: A: PPD#1, pleased with experience though pt is supplementing with formula until milk comes in P: Written instructions reviewed and given to pt Offer Varicella vaccination prior to discharge Pt planning for tubal ligation after period Desires discharge this afternoon F/up at 2 & 6 wks Subjective Subjective Patient comments: No complaints, Pain well controlled, Tolerating diet, Flatus present and Bowel Movement Patient's Mood: happy baby status: Doing well, Nursing well, Rooming in and Strong Bonding Observed [place] feeding status: Breast and formula feeding Exam Physical Exam Vital signs: Temp Pulse Resp BP Pulse Ox 97.9 F 84 16 138/84 99 05/10/25 06:15 05/10/25 03:20 05/10/25 03:20 05/10/25 03:20 05/09/25 22:22 Vital Signs Reviewed: Yes Constitutional Constitutional: no acute distress, obese and cooperative HEENT Exam HEENT Exam: Normal Neck Exam Neck Exam: Normal Breast Exam Bilateral: Breast Exam: Normal and Soft Nipple Exam: Normal and Uninjured Respiratory Exam Respiratory Exam: Normal Cardiovascular Exam Cardiovascular Exam: Normal Abdominal Exam Abdomen: Other (soft, nontender) Fundal Exam Fundus: Below Umbilicus and Firm Rectal Exam Rectal Exam: Normal Exam Perineum: Repair Intact Extremities Exam Extremity Exam: Normal, Full ROM and Warm to Touch Back/Spine/Pelvis Exam Back Exam: Normal Skin Exam Skin Exam: Normal Neurological Exam Neurological Exam: Normal Psychiatric Exam Psychiatric Exam: Normal
[2025-05-10] MEDS: Docusate Sodium 100 MG CAP PO (10:17)
--- NOTE | 2025-05-10 16:48 | DSE_ITS ---
Date of service: 05/10/25 Time of Service: 16:00 DS: Diagnosis Discharge Diagnosis (1) Term : Status: Acute Discharge Plan Disposition Patient Disposition: Home Condition: Good Discharge Details Reason For Visit: Active Labor at 40wk3d Admit Date/Time: 05/09/25 02:35 Admit Provider: Sally Stokes Attending Provider: Sally Stokes [facility] Course: under epidural anesthesia on HD#1 day of admission, nml course, pt desires discharge on PPD#1 (HD#2). Home Meds and New Rx's Prescriptions: No Action levothyroxine 75 mcg tablet 75 mcg PO DAILY Qty: 30 5RF Plus Vitamin-Mineral 27 mg iron- 1 mg tablet 1 tab PO DAILY Qty: 90 3RF Discharge Instructions Instructions: Vaginal Delivery (DC), Taking Care of Yourself After You Have a Baby Additional Instructions: Please keep your 2 and 6 week appts with the midwives, call for any and all questions and concerns. Stand Alone Forms: BC Instructions, BC Post Vaginal Deliver, Portal Information Activity:: Activity as Tolerated Equipment/Supplies:: No Equipment Needed Diet:: Normal Diet Discharge Orders Discharge Orders: Discharge Order (Routine); Ordered 05/10/25 Ordered By: Jacey Valdez Discharge Data Discharge Date/Time-TO BE ENTERED AT DEPARTURE: 05/10/25 16:10 DS: Summary Time Spent with Patient providing and/or coordinating discharge services: Less than 30 minutes Status at Discharge Functional status at discharge: independent ambulation Overall status at discharge: patient is progressing back to baseline Mental Status: mental status grossly normal Speech and Movement: speech and movement normal Mood: congruent mood Affect: normal affect Exam Narrative Exam Narrative: declines AROM at this time Psych Mental Status: mental status grossly normal Speech and Movement: speech and movement normal Mood: congruent mood Affect: normal affect DS: Data Vitals/I&O Vitals and I&O: Vital Signs Temperature 97.9 F 05/10/25 15:13 Temperature 98.1 F 05/09/25 07:09 Temperature Source Forehead 05/10/25 15:04 Pulse 18 L 05/10/25 15:04 Pulse 69 05/09/25 07:09 Pulse Rhythm Regular 05/09/25 22:22 Respiratory Rate 16 05/10/25 03:20 Respiratory Depth Normal 05/09/25 03:04 Blood Pressure 126/72 05/10/25 15:04 Blood Pressure 129/75 05/09/25 07:09 Blood Pressure Mean 90 05/10/25 15:04 Pulse Oximetry 99 05/09/25 22:22 Pain Level 2 05/10/25 15:13 Data Completed and Pending Pending Labs at Discharge: 05/09/25 03:13 WBC 14.12 H RBC 4.49 Hgb 11.4 Hct 36.5 MCV 81 MCH 25.4 L MCHC 31.2 L RDW 14.9 H Plt Count 246 MPV 9.2 Immature Gran % 0.6 Neutrophils % 79.1 Lymphocytes % 15.9 Monocytes % 3.2 Eosinophils % 1.0 Basophils % 0.2 Nucleated RBC % 0.0 Absolute Neutrophils 11.17 H Absolute Lymphocytes 2.25 Absolute Monocytes 0.45 Absolute Eosinophils 0.14 Absolute Basophils 0.03 ABO/Rh A Positive Antibody Screen NEGATIVE PFSH All Active Problems (Updated 05/11/25 @ 00:05 by ALLA REY) Term (Acute) Anemia affecting (Acute) Susceptible to varicella (non-immune), currently (Acute) Colitis (Chronic) BMI 40.0-44.9, adult (Acute) Headache (Acute) Hypothyroid (Chronic) Obesity (Chronic) Medical History (Updated 05/11/25 @ 00:05 by ALLA REY) Intestinal cramps Constipation during in second trimester History of miscarriage, currently Cramping affecting , antepartum Pain, dental Elevated TSH Pelvic pain Concussion Mild - one day of headache and being tired High BMI BMI 43 Migraine headache without aura resolved 2017 ADHD (attention deficit hyperactivity disorder) no medications after age 15 Surgical History H/O wisdom tooth extraction Family History Mother Bipolar 1 disorder, depressed Father , 45 Anxiety Depression Heart disease Myocardial infarction at age 45 Maternal Grandfather , in his late 70s Alzheimer's dementia Maternal Grandmother , at 69 of lung cancer Lung cancer Paternal Grandfather Type 2 diabetes mellitus Asthma Heart disease Cancer Paternal Grandmother Hyperlipidemia Hypertension Thyroid disease Social History Smoking/Tobacco Use Status: Never Second Hand Exposure: Yes Smoking risk assessment performed?: Yes Alcohol Intake: current Alcohol Intake frequency: holidays/special occasions only Drug use: Never Substance use type: does not use Caregiver/Support person: Yes Foster care: No Household members: other Details: Livs with Grandparents Housing: apartment 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 Pets and animals: Yes Pets and animals: cat(s) and dog(s) Sexually active: Yes Do you think of yourself as: straight/heterosexual Current gender identity: female What type of physical activity do you participate in: walking Seatbelt use: always Helmet use: Yes Drive intox or ride w/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 Date GA/Weeks # Preg Succ Route Wgt Sex Labor Lgth [facility]esth [facility] 09[facility]22 [facility] No Yes vaginal 6 lb 5 oz Male 29 hrs regional Joanne Taylor CNM Delivery Date: 05/12/19 Last Updated by: Saira Alberto CNM pos. PT and bleeding soon after Delivery Date: 09/26/22 Last Updated by: Saira Alberto CNM spont labor, epidural at 8-9 cm, nml Derek autism Time Spent with Patient Time Spent with Patient: <45 minutes Time was spent: preparing to see the patient(eg.review tests), obtaining and/or reviewing separately otained hiistory, ordering medications,tests, procedures, indepentently interpreting results and counseling the patient
--- NOTE | 2025-05-11 07:30 | W.PM.DS.N ---
DS: Diagnosis Discharge Diagnosis (1) Term : Status: Acute Discharge Plan Disposition Patient Disposition: Home Condition: Good Discharge Details Reason For Visit: Active Labor at 40wk3d Admit Date/Time: 05/09/25 02:35 Admit Provider: Sally Stokes Attending Provider: Sally Stokes [facility]: under epidural anesthesia on HD#1 day of admission, nml course, pt desires discharge on PPD#1 (HD#2). Home Meds and New Rx's Prescriptions: No Action levothyroxine 75 mcg tablet 75 mcg PO DAILY Qty: 30 5RF Plus Vitamin-Mineral 27 mg iron- 1 mg tablet 1 tab PO DAILY Qty: 90 3RF Discharge Instructions Instructions: Vaginal Delivery (DC), Taking Care of Yourself After You Have a Baby Additional Instructions: Please keep your 2 and 6 week appts with the midwives, call for any and all questions and concerns. Stand Alone Forms: BC Instructions, BC Post Vaginal Deliver, Portal Information Activity:: Activity as Tolerated Equipment/Supplies:: No Equipment Needed Diet:: Normal Diet Discharge Data Discharge Date/Time-TO BE ENTERED AT DEPARTURE: 05/10/25 16:10 DS: Data Vitals/I&O Vitals and I&O: Vital Signs Temperature 97.9 F 05/10/25 15:13 Temperature 98.1 F 05/09/25 07:09 Temperature Source Forehead 05/10/25 15:04 Pulse 18 L 05/10/25 15:04 Pulse 69 05/09/25 07:09 Pulse Rhythm Regular 05/09/25 22:22 Respiratory Rate 16 05/10/25 03:20 Respiratory Depth Normal 05/09/25 03:04 Blood Pressure 126/72 05/10/25 15:04 Blood Pressure 129/75 05/09/25 07:09 Blood Pressure Mean 90 05/10/25 15:04 Pulse Oximetry 99 05/09/25 22:22 Pain Level 2 05/10/25 15:13 Intake & Output 05/10/25 05/10/25 05/11/25 11:59 23:59 11:59 Output Total 150 / 150 Balance -150 / -150 Output: Urine 150 / 150 Data Completed and Pending Pending Labs at Discharge: 05/09/25 03:13 WBC 14.12 H RBC 4.49 Hgb 11.4 Hct 36.5 MCV 81 MCH 25.4 L MCHC 31.2 L RDW 14.9 H Plt Count 246 MPV 9.2 Immature Gran % 0.6 Neutrophils % 79.1 Lymphocytes % 15.9 Monocytes % 3.2 Eosinophils % 1.0 Basophils % 0.2 Nucleated RBC % 0.0 Absolute Neutrophils 11.17 H Absolute Lymphocytes 2.25 Absolute Monocytes 0.45 Absolute Eosinophils 0.14 Absolute Basophils 0.03 ABO/Rh A Positive Antibody Screen NEGATIVE PFSH All Active Problems (Updated 05/11/25 @ 00:05 by [employer]) Term (Acute) Anemia affecting (Acute) Susceptible to varicella (non-immune), currently (Acute) Colitis (Chronic) BMI 40.0-44.9, adult (Acute) Headache (Acute) Hypothyroid (Chronic) Obesity (Chronic) Medical History (Updated 05/11/25 @ 00:05 by [employer]) Intestinal cramps Constipation during in second trimester History of miscarriage, currently Cramping affecting , antepartum Pain, dental Elevated TSH Pelvic pain Concussion Mild - one day of headache and being tired High BMI BMI 43 Migraine headache without aura resolved 2017 ADHD (attention deficit hyperactivity disorder) no medications after age 15 Surgical History H/O wisdom tooth extraction Family History Mother Bipolar 1 disorder, depressed Father , 45 Anxiety Depression Heart disease Myocardial infarction at age 45 Maternal Grandfather , in his late 70s Alzheimer's dementia Maternal Grandmother , at 69 of lung cancer Lung cancer Paternal Grandfather Type 2 diabetes mellitus Asthma Heart disease Cancer Paternal Grandmother Hyperlipidemia Hypertension Thyroid disease Social History Smoking/Tobacco Use Status: Never Second Hand Exposure: Yes Smoking risk assessment performed?: Yes Alcohol Intake: current Alcohol Intake frequency: holidays/special occasions only Drug use: Never Substance use type: does not use Caregiver/Support person: Yes Foster care: No Household members: other Details: Livs with Grandparents Housing: apartment 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 Pets and animals: Yes Pets and animals: cat(s) and dog(s) Sexually active: Yes Do you think of yourself as: straight/heterosexual Current gender identity: female What type of physical activity do you participate in: walking Seatbelt use: always Helmet use: Yes Drive intox or ride w/intox 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 Date GA/Weeks # Preg Succ Route Wgt Sex Labor Lgth Anesthesia Location Prov Complic 05/12/19 09/26/22 38 No Yes vaginal 6 lb 5 oz Male 29 hrs regional [facility] Maldonado Delivery Date: 05/12/19 Last Updated by: Saira Alberto CNM pos. PT and bleeding soon after Delivery Date: 09/26/22 Last Updated by: Saira Alberto CNM spont labor, epidural at 8-9 cm, nml Derek autism
== END 2025-05-10 16:10 | disposition home or self-care (01) | DRG 807 ==
LOC: BCD 03:03 → OBS 03:03
PROVIDERS: Admitting Provider Advanced Practice Midwife; PCP Nurse Practitioner Family; Visit Provider Advanced Practice Midwife
DX: O99.284 Endocrine, nutritional and metabolic diseases complicating childbirth (principal); Z37.0 Single live birth; E03.9 Hypothyroidism, unspecified; Z3A.40 40 weeks gestation of pregnancy; K52.9 Noninfective gastroenteritis and colitis, unspecified; O99.62 Diseases of the digestive system complicating childbirth; R11.2 Nausea with vomiting, unspecified; O99.02 Anemia complicating childbirth; D64.9 Anemia, unspecified; Z28.39 Other underimmunization status; E66.9 Obesity, unspecified; O99.214 Obesity complicating childbirth; O69.1XX0 Labor and delivery complicated by cord around neck, with compression, not applicable or unspecified; O70.1 Second degree perineal laceration during delivery
CPT/HCPCS: 36415; 86850; 86900; 86901; 59200; 85025; J1200; J2312

== ENCOUNTER 2025-06-21 18:32 | Emergency (ER) | payer MEDICAID, SELFPAY ==
[2025-06-21 18:35] VITALS: BP 149/65; PULSE 97; RESP 20; TEMP 37.1; O2SAT 97
--- NOTE | 2025-06-21 19:58 | W.ED.GENAD ---
Discharge Plan Disposition Patient Disposition: Home Condition: Stable Discharge Details Clinical Impression: Allergic reaction, Encounter for IUD removal Primary Care Provider: Inga Prince ED Provider: Jamie Shipman Home Meds and New Rx's Prescriptions: New Slynd 4 mg (28) tablet 4 mg PO DAILY 84 Days Qty: 84 3RF epinephrine [EpiPen] 0.3 mg/0.3 mL auto-injector 0.3 ml subcut ONCE PRN (Reason: anaphylaxis) Qty: 1 0RF Rx Instructions: as a single dose; may repeat once No Action ParaGard T 380A 380 square mm intrauterine device 1 device intrauterine ONCE Rx Instructions: as a single dose levothyroxine 75 mcg tablet 75 mcg PO DAILY Qty: 30 5RF Plus Vitamin-Mineral 27 mg iron- 1 mg tablet 1 tab PO DAILY Qty: 90 3RF Discharge Instructions Instructions: Allergic Reaction ED, IUD removal Additional Instructions: You were seen in the emergency department for your allergic reaction to your IUD, as removed, your BULK DRIVER has sent in the medication to further cover you for control in the meantime. Please take Benadryl for any further hives for itching relief, please return for any worsening of her symptoms despite treatment Stand Alone Forms: Portal Information Referrals: Inga Prince, DEMETRA [Primary Care Provider, Medicine] Discharge Data Discharge Date/Time-TO BE ENTERED AT DEPARTURE: 06/21/25 20:33 HPI General Date/Time Provider Initiated Documentation: 06/21/25 18:38. HPI Narrative: 24 year-old female presents to ED today by POV/ambulating with a chief complaint of rash to torso, back, arms after getting a copper IUD yesterday- states reaction started about 3 hours after procedure. Quality described as itchy hives, no radiation to wheezing, respiratory distress, nausea, vomiting, dizziness, palpitations. Severity is described as moderate. Palliating factors include improved with Benadryl but came right back after each dose wore off x3 since last night. Provoking factors include nothing specific. Patient not anticoagulated. Related Data Home Medications ?Medication ?Instructions ?Recorded ?Confirmed levothyroxine 75 mcg tablet 75 mcg PO DAILY #30 tabs 09/23/24 06/21/25 vitamins no.180-ferrous 1 tab PO DAILY #90 tabs 09/23/24 06/21/25 fumarate 27 mg-folic acid 1 mg tablet ( Plus Vitamin-Mineral) copper 380 square mm intrauterine 1 device intrauterine ONCE 06/20/25 06/21/25 device (ParaGard T 380A) EpiPen 0.3 mg/0.3 mL injection, 0.3 ml subcut ONCE PRN anaphylaxis 06/21/25 auto-injector (epinephrine) #1 ea drospirenone (contraceptive) 4 mg 4 mg PO DAILY 84 days #84 tabs 06/21/25 (28) tablet (Slynd) Previous Rx's ?Medication ?Instructions ?Recorded levothyroxine 75 mcg tablet 75 mcg PO DAILY #30 tabs 09/23/24 vitamins no.180-ferrous 1 tab PO DAILY #90 tabs 09/23/24 fumarate 27 mg-folic acid 1 mg tablet ( Plus Vitamin-Mineral) EpiPen 0.3 mg/0.3 mL injection, 0.3 ml subcut ONCE PRN anaphylaxis 06/21/25 auto-injector (epinephrine) #1 ea drospirenone (contraceptive) 4 mg 4 mg PO DAILY 84 days #84 tabs 06/21/25 (28) tablet (Slynd) Allergies Allergy/AdvReac Type Severity Reaction Status Date / Time amoxicillin Allergy Intermediate skin rash Verified 06/21/25 18:38 Penicillins Allergy Intermediate Skin Rash Verified 06/21/25 18:38 clindamycin Allergy Mild Skin Rash Verified 06/21/25 18:38 copper Allergy Mild Skin Rash Unverified 06/21/25 20:20 General Stated Complaint: Allergic SAI: 3 Review of Systems All systems reviewed & are unremarkable except as noted in HPI and below Exam Narrative Exam Narrative: GENERAL APPEARANCE: Well-nourished, non-toxic, awake and alert, atraumatic, no acute distress. SKIN: Warm, pink, dry, intact, without rashes/lesions/ulcerations. HEAD: Normocephalic, atraumatic, normal hair distribution for gender/age. EYES: Normal conjunctiva, no exudates on lids/lashes. ENT: Nares patent, no circumoral cyanosis, no facial swelling, no tongue or oral swelling NECK: Supple, trachea midline, painless cervical ROM. LUNGS/CHEST: Lungs CTA bilaterally-no wheezing, non-labored respirations, normal A/P diameter, symmetrical expansion, no chest wall deformity HEART (CV/PV): Regular rate and rhythm without murmur, no peripheral edema, no JVD. ABDOMEN: Soft, non-distended, no guarding. Pelvic: See BULK DRIVER Dr. Melendrez's note for IUD removal MSK: Normal ROM, no swelling/deformity to bilateral UEs or LEs, moving all extremities without weakness, no cyanosis, spine midline without tenderness, normal curvature. NEURO: Mental Status AAOx4 - alert to person, place, time, events No facial droop, no forehead involvement. Motor: No focal weakness - strength 5/5 in bilateral UEs and LEs, proximal and distal, symmetric. Sensory: sensation intact to light touch globally. Gait normal: patient ambulated without ataxia into ED room. PSYCH: euthymic, cooperative, pleasant, appropriate speech Course Vital Signs Vital signs: Vital Signs Temperature 37.1 C 06/21/25 18:35 Pulse 97 H 06/21/25 18:35 Respiratory Rate 20 06/21/25 18:35 Blood Pressure 149/65 H 06/21/25 18:35 Pulse Oximetry 97 06/21/25 18:35 Temperature 37.1 C 06/21/25 18:35 Pulse 97 H 06/21/25 18:35 Respiratory Rate 20 06/21/25 18:35 Respiratory Effort Normal, Non-Labored 06/21/25 19:52 Respiratory Depth Normal 06/21/25 19:52 Respiratory Pattern Normal 06/21/25 18:55 Blood Pressure 149/65 H 06/21/25 18:35 Blood Pressure Position Sitting 06/21/25 18:35 Pulse Oximetry 97 06/21/25 18:35 Oxygen Delivery Method Room Air 06/21/25 18:35 Oxygen Flow Rate 0 06/21/25 18:35 Medical Decision Making This dictation utilizes [id number] dictation software and may contain unedited grammatical errors. 24 year-old female presents to ED today by POV/ambulating with a chief complaint of rash to torso, back, arms after getting a copper IUD yesterday- states reaction started about 3 hours after procedure. Quality described as itchy hives, no radiation to wheezing, respiratory distress, nausea, vomiting, dizziness, palpitations. Severity is described as moderate. Palliating factors include improved with Benadryl but came right back after each dose wore off x3 since last night. Provoking factors include nothing specific. Patients' medical history: Recent . Family and social history: Noncontributory. Pertinent exam findings / vital signs include diffuse hives to torso, arms, back, no wheezing, no tongue or oral swelling. Differential / pathologies of concern include allergic reaction. Diagnostic studies of: - None. Interventions of: - Offered a trial of significant antihistamines and steroids for another 24 to 48 hours to see if reaction returned but patient opted for removal, BULK DRIVER on-call had already called report on this patient and stated that they would take out the IUD, Dr. Melendrez presented to ED and removed IUD. ED Course/Assessment/Plan: 24-year-old female is having allergic reaction to a copper based IUD put in yesterday, and her rash responded to Benadryl but return immediately upon medication wearing off. BULK DRIVER on-call presented to ED and removed IUD, patient was comfortable with this plan and will return for any worsening reactions or failure to improve with removal of IUD for further investigation. Findings not consistent with active anaphylaxis. Disposition of allergic reaction, encounter for IUD removal. Patient verbalized understanding of the plan and return to ED criteria and engaged in shared decision making. Medical Records Medical records reviewed: Yes I reviewed the patient's medical records. FORMERLY [facility], [facility] All Active Problems (Updated 06/21/25 @ 20:19 by Johanna Yeung DO) Complication of intrauterine device (IUD) (Acute) Encounter for IUD removal (Acute) Allergic reaction (Acute) Encounter for IUD insertion (Acute) Anemia affecting (Acute) Susceptible to varicella (non-immune), currently (Acute) Colitis (Chronic) BMI 40.0-44.9, adult (Acute) Headache (Acute) Hypothyroid (Chronic) Obesity (Chronic) Medical History Intestinal cramps Constipation during in second trimester History of miscarriage, currently Cramping affecting , antepartum Pain, dental Elevated TSH Pelvic pain Concussion Mild - one day of headache and being tired High BMI BMI 43 Migraine headache without aura resolved 2017 ADHD (attention deficit hyperactivity disorder) no medications after age 15 Surgical History H/O wisdom tooth extraction Family History Mother Bipolar 1 disorder, depressed Father , 45 Anxiety Depression Heart disease Myocardial infarction at age 45 Maternal Grandfather , in his late 70s Alzheimer's dementia Maternal Grandmother , at 69 of lung cancer Lung cancer Paternal Grandfather Type 2 diabetes mellitus Asthma Heart disease Cancer Paternal Grandmother Hyperlipidemia Hypertension Thyroid disease Social History Smoking/Tobacco Use Status: Never Second Hand Exposure: Yes Smoking risk assessment performed?: Yes Alcohol Intake: current Alcohol Intake frequency: holidays/special occasions only Drug use: Never Substance use type: does not use Caregiver/Support person: Yes Foster care: No Household members: other Details: Livs with Grandparents Housing: apartment 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 Pets and animals: Yes Pets and animals: cat(s) and dog(s) Sexually active: Yes Do you think of yourself as: straight/heterosexual Current gender identity: female What type of physical activity do you participate in: walking Seatbelt use: always Helmet use: Yes Drive intox or ride w/intox national dedicated 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: No Firearms in home: Yes Firearms unloaded and locked: Yes Do you feel safe at home: Yes Do you feel safe in your relationship?: Yes Female Reproductive History Menstrual control method: pills History History 4 Para 2 Hx # Term Pregnancies 2 Multiple births 0 Hx # Pregnancies 0 Ectopic pregnancies 0 AB induced 0 Hx Number of Living Children 2 AB spontaneous 1 Past Pregnancies Del. Date GA/Weeks # Preg Succ Route Wgt Sex Labor Lgth Anesthesia Location Prov Complic 05/12/19 09/26/22 38 No Yes vaginal 2863.302 g Male 29 hrs [facility] 05/09/25 40 No Yes vaginal Female 14 hours 57 minutes Saira Alberto Delivery Date: 05/12/19 Last Updated by: Saira Alberto CNM pos. PT and bleeding soon after Delivery Date: 09/26/22 Last Updated by: Saira Alberto CNM spont labor, epidural at 8-9 cm, nml Derek autism PAWSS Have you Been Recently Intoxicated or Drunk Within the Last 30 days?: No Have you Ever Experienced Previous Episodes of Alcohol Withdrawal?: No Have you ever Experienced Withdrawal Seizures?: No Have you ever Experienced Delirium Tremens(DT)s?: No Have you ever undergone Alcohol Rehabilitation Treatment (i.e, inpt ot outpatient treatment programs)?: No Have you ever Experienced Blackouts?: No Have you ever Combined Alcohol with other Downers within the last 90 days?: No Have you ever Combined Alcohol with any other Substance of Abuse during the last 90 days?: No Positive Blood Alcohol level on Presentation? [PCS.BAL]: No Evidence of Increased Autonomic Activity (i.e. HR>120, tremor, sweating, agitation, nausea)?: No Result: 0
--- NOTE | 2025-06-21 20:11 | OBCE_ITS ---
Date of service: 06/21/25 Time of Service: 20:12 Assessment and Plan Assessment and plan (1) Complication of intrauterine device (IUD): Status: Acute Assessment and plan: Patient requested removal of IUD which was performed without issue. She does not have any symptoms of anaphylaxis, but she was counseled on the symptoms and encouraged to have a low threshold for seeking immediate re-evaluation if concerns arise. She was encouraged to continue Benadryl for the itching, and she will f/u with the office in 1 week. Alternative contraceptive options were reviewed. Patient reports migraines on OCP's and poor tolerance of Depo-Provera. She declines Nexplanon, though she is considering one of the other hormonal IUDs. She does still desire to maintain her reproductive potential. She will tr lola Fordd (sent ot her pharmacy), and she was advised to use backup contraception for at least two weeks from the time of initiating the pill as it takes time to become effective. PNV encouraged. History of Present Illness Narrative: 24 yo s/p uncomplicated Paragard placement yesterday presents to the ED after having a itching, irritating rash develop following the procedure. It started on her inner thighs and spread. It is now up to her neck and back. She denies any shortness of breath, chest pain, palpitations, light-headedness / dizziness. She denies any known copper allergies or known h/o anaphylaxis. She has not recently changed any lotions, detergents, or soaps. She has not started any new medications. She expresses a strong desire for removal of the IUD. FORMERLY [facility] All Active Problems (Updated 06/21/25 @ 20:19 by Johanna Yeung DO) Complication of intrauterine device (IUD) (Acute) Encounter for IUD removal (Acute) Allergic reaction (Acute) Encounter for IUD insertion (Acute) Anemia affecting (Acute) Susceptible to varicella (non-immune), currently (Acute) Colitis (Chronic) BMI 40.0-44.9, adult (Acute) Headache (Acute) Hypothyroid (Chronic) Obesity (Chronic) Medical History Intestinal cramps Constipation during in second trimester History of miscarriage, currently Cramping affecting , antepartum Pain, dental Elevated TSH Pelvic pain Concussion Mild - one day of headache and being tired High BMI BMI 43 Migraine headache without aura resolved 2017 ADHD (attention deficit hyperactivity disorder) no medications after age 15 Surgical History H/O wisdom tooth extraction Family History Mother Bipolar 1 disorder, depressed Father , 45 Anxiety Depression Heart disease Myocardial infarction at age 45 Maternal Grandfather , in his late 70s Alzheimer's dementia Maternal Grandmother , at 69 of lung cancer Lung cancer Paternal Grandfather Type 2 diabetes mellitus Asthma Heart disease Cancer Paternal Grandmother Hyperlipidemia Hypertension Thyroid disease Social History Smoking/Tobacco Use Status: Never Second Hand Exposure: Yes Smoking risk assessment performed?: Yes Alcohol Intake: current Alcohol Intake frequency: holidays/special occasions only Drug use: Never Substance use type: does not use Caregiver/Support person: Yes Foster care: No Household members: other Details: Livs with Grandparents Housing: apartment 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 Pets and animals: Yes Pets and animals: cat(s) and dog(s) Sexually active: Yes Do you think of yourself as: straight/heterosexual Current gender identity: female What type of physical activity do you participate in: walking Seatbelt use: always Helmet use: Yes Drive intox or ride w/intox driver service technician: No Firearms in home: Yes Firearms unloaded and locked: Yes Do you feel safe at home: Yes Do you feel safe in your relationship?: Yes Female Reproductive History Menstrual control method: pills History History 4 Para 2 Hx # Term Pregnancies 2 Multiple births 0 Hx # Pregnancies 0 Ectopic pregnancies 0 AB induced 0 Hx Number of Living Children 2 AB spontaneous 1 Past Pregnancies Del. Date GA/Weeks # Preg Succ Route Wgt Sex Labor Lgth Anesth esia Location [facility] 05/12/19 09/26/22 38 No Yes vaginal 6 lb 5 oz Male 29 hrs [facility] Joanne Taylor CNM 05/09/25 40 No Yes vaginal Female 14 hours 57 minutes Saira Alberto Delivery Date: 05/12/19 Last Updated by: Saira Alberto CNM pos. PT and bleeding soon after Delivery Date: 09/26/22 Last Updated by: Saira Alberto CNM spont labor, epidural at 8-9 cm, nml Derek autism Exam Narrative Exam Narrative: general: well nourished female in no immediate distress pulm: no overt respiratory distress abd: soft, non-distended ext: no swelling derm: generalized, maculopapular rash all across upper legs, abdomen, back, chest, and neck : Unremarkable external genitalia. Speculum exam appreciates two white strings protruding for the unremarkable vaginal os. Strings were gently grasped with a ring forcep and the IUD was removed fully intact without issue with gentle traction. Results Last Vital Signs Temp 98.7 F 06/21/25 18:35 Pulse 97 H 06/21/25 18:35 Resp 20 06/21/25 18:35 BP 149/65 H 06/21/25 18:35 Pulse Ox 97 06/21/25 18:35
== END 2025-06-21 20:33 | disposition home or self-care (01) ==
PROVIDERS: Emergency Provider Physician Assistant; PCP Nurse Practitioner Family
DX: T78.49XA Other allergy, initial encounter (principal); X58.XXXA Exposure to other specified factors, initial encounter
CPT/HCPCS: 99283